=== PATIENT | male | born 1965 | race American Indian/Alaskan Native ===

== ENCOUNTER 2018-11-09 14:48 | Emergency (ER) | payer MEDICAID, MEDICARE ==
[2018-11-09] MEDS ORDERED: ATIVAN ONE (14:56)
[2018-11-09] MEDS ORDERED: ATIVAN IM ONE (15:00)
--- NOTE | 2018-11-09 15:21 | Emergency Department Report ---
ED Seizure HPI - General Chief Complaint: Seizure Stated Complaint: AMS Time Seen by Provider: 11/09/18 14:59 Source: patient Mode of arrival: Stretcher Limitations: No Limitations - History of Present Illness Initial Comments: Mr. Harvey is a 53-year-old male who with history of seizure disorder with neurostimulator in place who presents with seizure and altered mental status. witnessed seizure activity. After seizure, patient was confused. Combative per EMS. While attempted to walk away from EMS, he struck his head on dresser. Patient continues asked for "Zuleika". He asks, "Why are you in my house?" MD Complaint: seizure -: Sudden Witnessed:: Yes Seizure History: known seizure disorder Place: home Possible Precipitating Event: none - Related Data Allergies Allergy/AdvReac Type Severity Reaction Status Date / Time aspirin Allergy Unknown Verified 11/09/18 15:09 ED Review of Systems ROS: Stated complaint: AMS Other details as noted in HPI Comment: Unobtainable due to pts medical conditions (altered mental status) ED Past Medical Hx - Past Medical History Previous Medical History?: Yes Hx Seizures: Yes - Surgical History Past Surgical History?: No - Family History Family history: other (UTO) - Social History Smoking Status: Never Smoker Substance Use Type: None ED Physical Exam - General Limitations: No Limitations General appearance: alert, in no apparent distress, other (combative, talkative, restless) - Head Head exam: Present: atraumatic, normocephalic - Eye Eye exam: Present: normal appearance - ENT ENT exam: Present: mucous membranes moist - Neck Neck exam: Present: normal inspection, full ROM - Respiratory Respiratory exam: Present: normal lung sounds bilaterally. Absent: respiratory distress, wheezes, rales, rhonchi - Cardiovascular Cardiovascular Exam: Present: regular rate, normal rhythm, normal heart sounds. Absent: systolic murmur, diastolic murmur, rubs, gallop - GI/Abdominal GI/Abdominal exam: Present: soft, normal bowel sounds. Absent: distended, tenderness, guarding, rebound - Rectal Rectal exam: Present: deferred - Extremities Exam Extremities exam: Present: normal inspection - Back Exam Back exam: Present: normal inspection - Neurological Exam Neurological exam: Present: alert, altered - Psychiatric Psychiatric exam: Present: agitated - Skin Skin exam: Present: warm, dry, intact, normal color. Absent: rash ED Course Vital Signs 11/09/18 11/09/18 15:10 16:37 Temperature 98 F Pulse Rate 104 H 83 Respiratory 16 16 Rate Blood Pressure 152/78 152/96 [Left] O2 Sat by Pulse 100 96 Oximetry - Reevaluation(s) Reevaluation #1: 11/09/18 18:35 Upon arrival patient requires several ED personnel or strains. He was obviously confused requiring soft tissue restraint and IM Ativan. Reevaluation #2: 11/09/18 18:36 Upon reassessment, patient was alert and oriented 3. He is insightful and cooperative. She was able to recall that he normally has approximately 2-4 seizures per month. However he was unable to recall the name of his medication s. I and the nurse both have attempted to call his for further information. ED Medical Decision Making - Lab Data Result diagrams: 11/09/18 15:13 11/09/18 15:13 - EKG Data 11/09/18 15:27 EKG obtained 1524 Sinus tachycardia rate 100 bpm normal axis normal intervals positive LVH nonspecific T wave pattern no significant ST elevation - Radiology Data Radiology results: report reviewed No acute process - Medical Decision Making Mr. Harvey 52-year-old male with history of seizure disorder with neurostimulator in place. After seizure witnessed by , Mr. Harvey was combative and confused. After observation in the ED, he is now alert and oriented 3 cooperative. CBC chemistry within normal limits. He received Keppra load in the ED. Once arrives he will be discharged home. Critical Care Time: Yes Critical care time in (mins) excluding proc time.: 40 Critical care attestation.: If time is entered above; I have spent that time in minutes in the direct care of this critically ill patient, excluding procedure time. 40 minutes of critical care time excluding procedures were used in the care of the patient. Patient required multiple assessments and interventions. I reviewed the electronic medical record. I spoke with consultants involved in the care of the patient. ED Disposition Clinical Impression: Seizure, Altered mental status Disposition: DC-01 TO HOME OR SELFCARE Is pt being admited?: No Does the pt Need Aspirin: No Condition: Stable Instructions: Recurrent Seizures Adult (ED), Epilepsy (ED) Additional Instructions: Please contact your personal neurologist as soon as possible
[2018-11-09 15:29] LABS: Basophils % (Auto) 0.4 % (0.0-1.8); Hematocrit 35.9 % (35.5-45.6); Hemoglobin 11.7 gm/dl (11.8-15.2); Lymphocytes # (Auto) 2.5 K/mm3 (1.2-5.4); Lymphocytes % (Auto) 33.1 % (13.4-35.0); Mean Corpuscular HGB Conc 33 % (32-34); Mean Corpuscular Volume 84 fl (84-94); Monocytes # (Auto) 0.4 K/mm3 (0.0-0.8); Monocytes % (Auto) 5.9 % (0.0-7.3); Platelet Count 305 K/mm3 (140-440); Red Blood Count 4.26 M/mm3 (3.65-5.03); Red Cell Distribution Width 14.7 % (13.2-15.2)
[2018-11-09 15:50] LABS: Alanine Aminotransferase 18 units/L (7-56); Albumin 4.6 g/dL (3.9-5); BUN/Creatinine Ratio 10; Blood Urea Nitrogen 7 mg/dL (9-20); Calcium 9.1 mg/dL (8.4-10.2); Hemolysis Index 1
[2018-11-09 16:38] VITALS: BP 152/96
--- NOTE | 2018-11-09 17:43 | Cat Scan Report ---
FINAL REPORT EXAM: CT HEAD/BRAIN WO CON HISTORY: Seizure TECHNIQUE: Standard unenhanced CT of the head at 5.0 millimeter axial increments. PRIORS: None. FINDINGS: There is a metallic stimulator device overlying the left parietal region with the 2 stimulator leads terminating in the medial temporal lobes bilaterally. There is dilatation of the lateral and 3rd ventricles bilaterally. The 4th ventricle appears normal. Findings can be seen with hydrocephalus. There is no evidence for parenchymal volume loss. There is no evidence for mass lesion, mass effect, midline shift, acute intracranial hemorrhage, or a cute ischemia/ infarction. No evidence for acute skull fracture is seen. No abnormality in the overlying scalp soft tissues is seen. Visualized paranasal sinuses are clear. IMPRESSION: Dilatation of the lateral and 3rd ventricles bilaterally. Findings can be seen with hydrocephalus.
[2018-11-09] MEDS ORDERED: KEPPRA 1,000 MG/NS 0.75% 100ML 1,000 MG/100 ML BAG IV ONE (18:28)
== END 2018-11-09 20:31 | disposition home or self-care (01) ==
LOC: ED 14:48
DX: G40.909 Epilepsy, unspecified, not intractable, without status epilepticus (principal); R41.82 Altered mental status, unspecified; Z88.6 Allergy status to analgesic agent
CPT/HCPCS: 36415; 70450; 80053; 85025; 93005; 93010; 96372; 96374; 99285; G0480; J1953; J2060; 80320; 96365

== ENCOUNTER 2019-06-21 08:48 | Inpatient (IN) | payer MEDICARE ==
--- NOTE | 2019-06-21 10:00 | Emergency Department Report ---
<SVEN NAGEL - Last Filed: 06/21/19 11:18> ED Neuro Deficit HPI - General Chief Complaint: Seizure Stated Complaint: SEIZURES Time Seen by Provider: 06/21/19 09:27 - Related Data Home Medications: Home Medications Medication Instructions Recorded Confirmed Last Taken Atorvastatin [Lipitor Tab] 40 mg PO QHS 06/21/19 06/21/19 06/20/19 Insulin Glargine [Lantus VIAL] 18 units SUB-Q QPM 06/21/19 06/21/19 Unknown Lacosamide [Vimpat] 200 mg PO BID 06/21/19 06/21/19 06/20/19 Lisinopril [Zestril TAB] 10 mg PO QDAY 06/21/19 06/21/19 06/20/19 OLANZapine [Zyprexa] 15 mg PO HS 06/21/19 06/21/19 06/20/19 OXcarbazepine [Trileptal] 1,200 mg PO Q12H 06/21/19 06/21/19 06/20/19 Topiramate [Topamax] 200 mg PO BID 06/21/19 06/21/19 06/20/19 lamoTRIgine [LaMICtal] 200 mg PO BID 06/21/19 06/21/19 06/20/19 metFORMIN [Glucophage] 500 mg PO BIDWM 06/21/19 06/21/19 06/20/19 Allergies/Adverse Reactions: Allergies Allergy/AdvReac Type Severity Reaction Status Date / Time aspirin Allergy Unknown Verified 11/09/18 15:09 ED Past Medical Hx - Medications Home Medications: Home Medications Medication Instructions Recorded Confirmed Last Taken Type Atorvastatin [Lipitor Tab] 40 mg PO QHS 06/21/19 06/21/19 06/20/19 History Insulin Glargine [Lantus VIAL] 18 units SUB-Q QPM 06/21/19 06/21/19 Unknown History Lacosamide [Vimpat] 200 mg PO BID 06/21/19 06/21/19 06/20/19 History Lisinopril [Zestril TAB] 10 mg PO QDAY 06/21/19 06/21/19 06/20/19 History OLANZapine [Zyprexa] 15 mg PO HS 06/21/19 06/21/19 06/20/19 History OXcarbazepine [Trileptal] 1,200 mg PO Q12H 06/21/19 06/21/19 06/20/19 History Topiramate [Topamax] 200 mg PO BID 06/21/19 06/21/19 06/20/19 History lamoTRIgine [LaMICtal] 200 mg PO BID 06/21/19 06/21/19 06/20/19 History metFORMIN [Glucophage] 500 mg PO BIDWM 06/21/19 06/21/19 06/20/19 History ED Course - Reevaluation(s) Reevaluation #1: 06/21/19 11:19 Additional discussions had with consulting stroke neurology. he does not recommend TPA at this time. Unlikely to be ischemic event. There is concern for a medication interaction. He recommends noncontrast CT scan of the cervical spine, as well as aforementioned angiograms. - Lab Data Result diagrams: 06/21/19 10:02 06/21/19 10:02 Vital Signs 06/21/19 06/21/19 06/21/19 09:00 09:08 09:16 Temperature 98.3 F Pulse Rate 86 86 Respiratory 18 12 Rate Blood Pressure 160/92 160/92 O2 Sat by Pulse 98 98 99 Oximetry ED Disposition Clinical Impression: Gait abnormality, Ataxia, Weakness Disposition: - OP ADMIT IP TO THIS HOSP Condition: Stable <YARED JONES - Last Filed: 06/21/19 14:15> ED Neuro Deficit HPI - General Source: patient Mode of arrival: Stretcher Limitations: No Limitations - History of Present Illness Initial Comments: 53-year-old -[place] female with past medical history of seizure disorder, diabetes, hypertension presents to the emergency department complaining of a 2 day history of episodic unsteady gait and "high stepping". He reports on yesterday when he got out of the bed in the morning to be his he had an unusually high stepping gait to the bathroom was last about 15-20 minutes and symptoms begin to resolve after urination. He states he went about his day normally with no other other interruptions. Last night before going to bed states that his gait was normal but upon awaking today again to go to the bathroom reports having a high stepping gait. Once again just continue to linger associated with general mild weakness. He reports no loss of bowel or bladder, no saddle paresthesia, no headaches, no no blurry vision. States she's been taking this and testes medications as directed and report no trauma or illicit drug use. Reports no fever, chills, sweats but did have some nausea. Location: ataxia History of same: Yes Place: home Severity: mild Improves With: none Worsens With: none On Anticoagulants: No Context: other (onset overnight while sleeping.) Associated Symptoms: denies: confusion, chest pain, cough, diaphoresis, malise, nausea/vomiting, vertigo, syncope, weakness ED Review of Systems ROS: Stated complaint: SEIZURES Other details as noted in HPI Comment: All other systems reviewed and negative ED Past Medical Hx - Past Medical History Hx Hypertension: Yes Hx Diabetes: Yes Hx Seizures: Yes Additional medical history: high cholesterol, - Surgical History Past Surgical History?: Yes 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 - Social History Smoking Status: Former Smoker Substance Use Type: None ED Neuro Physical Exam - General Limitations: No Limitations General appearance: alert, in no apparent distress, appears intoxicated Suspected Stroke: No - Head Head exam: Present: atraumatic, normocephalic - Eye Eye exam: Present: normal appearance, PERRL, EOMI Pupils: Present: normal accommodation - ENT ENT exam: Present: normal exam, normal orophraynx, mucous membranes moist - Neck Neck exam: Present: normal inspection, full ROM - Respiratory Respiratory exam: Present: normal lung sounds bilaterally. Absent: respiratory distress, wheezes, rales, chest wall tenderness, accessory muscle use, decreased breath sounds - Cardiovascular Cardiovascular Exam: Present: regular rate, normal rhythm. Absent: systolic murmur, diastolic murmur, rubs, gallop - GI/Abdominal GI/Abdominal exam: Present: soft, normal bowel sounds. Absent: distended, tenderness, guarding, hyperactive bowel sounds, hypoactive bowel sounds, organomegaly, mass - Rectal Rectal exam: Present: deferred - Extremities Exam Extremities exam: Present: normal inspection - Back Exam Back exam: Present: normal inspection - Neurological Exam Neurological exam: Present: alert, oriented X3 - Psychiatric Psychiatric exam: Present: normal affect, normal mood - Skin Skin exam: Present: warm, dry, intact, normal color. Absent: rash ED Course Vital Signs 10/09/19 10/09/19 10/09/19 09:00 09:08 09:16 Temperature 98.3 F Pulse Rate 86 86 Respiratory 18 12 Rate Blood Pressure 160/92 160/92 O2 Sat by Pulse 98 98 99 Oximetry - Consultations Consultation #1: 06/21/19 10:04 Case discussed with attending Dr. Nagel also had face to face with the patien t. We ambulated Mr. Noonan. His gait was found to be unsteady. Plan is to work up as a stroke and consult Tele-Neuro for stat consult. Patient is not criteria for a code stroke. Consultation #2: 06/21/19 14:14 Case was discussed with the hospitalist plan is [place] [facility] [place] to be placed - Lab Data Result diagrams: 06/21/19 10:02 06/21/19 10:02 Lab Results 06/21/19 06/21/19 06/21/19 Range/Units 10:02 10:02 10:02 WBC 7.9 (4.5-11.0) K/mm3 RBC 4.71 (3.65-5.03) M/mm3 Hgb 13.1 (11.8-15.2) gm/dl Hct 40.0 (35.5-45.6) % MCV 85 (84-94) fl MCH 28 (28-32) pg MCHC 33 (32-34) % RDW 15.2 (13.2-15.2) % Plt Count 234 (140-440) K/mm3 Lymph % (Auto) 28.6 (13.4-35.0) % Price % (Auto) 5.9 (0.0-7.3) % Eos % (Auto) 0.5 (0.0-4.3) % Baso % (Auto) 1.3 (0.0-1.8) % Lymph # 2.3 (1.2-5.4) K/mm3 Price # 0.5 (0.0-0.8) K/mm3 Eos # 0.0 (0.0-0.4) K/mm3 Baso # 0.1 (0.0-0.1) K/mm3 Seg Neutrophils % 63.7 (40.0-70.0) % Seg Neutrophils # 5.0 (1.8-7.7) K/mm3 PT 12.2 (12.2-14.9) Sec. INR 0.93 (0.87-1.13) Sodium 148 H (137-145) mmol/L Potassium 4.1 (3.6-5.0) mmol/L Chloride 104.9 (98-107) mmol/L Carbon Dioxide 26 (22-30) mmol/L Anion Gap 21 mmol/L BUN 7 L (9-20) mg/dL Creatinine 0.8 (0.8-1.5) mg/dL Estimated GFR > 60 ml/min BUN/Creatinine Ratio 9 % Glucose 147 H (75-100) mg/dL Calcium 9.4 (8.4-10.2) mg/dL Magnesium (1.7-2.3) mg/dL Total Bilirubin 0.40 (0.1-1.2) mg/dL AST 10 (5-40) units/L ALT 7 (7-56) units/L Alkaline Phosphatase 106 (35-129) units/L Ammonia (25-60) umol/L Total Creatine Kinase (55-170) units/L Troponin T < 0.010 (0.00-0.029) ng/mL Total Protein 7.6 (6.3-8.2) g/dL Albumin 4.9 (3.9-5) g/dL Albumin/Globulin Ratio 1.8 % TSH (0.270-4.200) mlU/mL Salicylates (2.8-20.0) mg/dL Acetaminophen (10.0-30.0) ug/mL Plasma/Serum Alcohol (0-0.07) % 06/21/19 06/21/19 06/21/19 Range/Units 11:44 Unknown Unknown WBC (4.5-11.0) K/mm3 RBC (3.65-5.03) M/mm3 Hgb (11.8-15.2) gm/dl Hct (35.5-45.6) % MCV (84-94) fl MCH (28-32) pg MCHC (32-34) % RDW (13.2-15.2) % Plt Count (140-440) K/mm3 Lymph % (Auto) (13.4-35.0) % Price % (Auto) (0.0-7.3) % Eos % (Auto) (0.0-4.3) % Baso % (Auto) (0.0-1.8) % Lymph # (1.2-5.4) K/mm3 Price # (0.0-0.8) K/mm3 Eos # (0.0-0.4) K/mm3 Baso # (0.0-0.1) K/mm3 Seg Neutrophils % (40.0-70.0) % Seg Neutrophils # (1.8-7.7) K/mm3 PT (12.2-14.9) Sec. INR (0.87-1.13) Sodium (137-145) mmol/L Potassium (3.6-5.0) mmol/L Chloride (98-107) mmol/L Carbon Dioxide (22-30) mmol/L Anion Gap mmol/L BUN (9-20) mg/dL Creatinine (0.8-1.5) mg/dL Estimated GFR ml/min BUN/Creatinine Ratio % Glucose (75-100) mg/dL Calcium (8.4-10.2) mg/dL Magnesium 1.40 L (1.7-2.3) mg/dL Total Bilirubin (0.1-1.2) mg/dL AST (5-40) units/L ALT (7-56) units/L Alkaline Phosphatase (35-129) units/L Ammonia 48.0 (25-60) umol/L Total Creatine Kinase 206 H (55-170) units/L Troponin T (0.00-0.029) ng/mL Total Protein (6.3-8.2) g/dL Albumin (3.9-5) g/dL Albumin/Globulin Ratio % TSH 0.753 (0.270-4.200) mlU/mL Salicylates (2.8-20.0) mg/dL Acetaminophen (10.0-30.0) ug/mL Plasma/Serum Alcohol (0-0.07) % 06/21/19 06/21/19 06/21/19 Range/Units Unknown Unknown Unknown WBC (4.5-11.0) K/mm3 RBC (3.65-5.03) M/mm3 Hgb (11.8-15.2) gm/dl Hct (35.5-45.6) % MCV (84-94) fl MCH (28-32) pg MCHC (32-34) % RDW (13.2-15.2) % Plt Count (140-440) K/mm3 Lymph % (Auto) (13.4-35.0) % Price % (Auto) (0.0-7.3) % Eos % (Auto) (0.0-4.3) % Baso % (Auto) (0.0-1.8) % Lymph # (1.2-5.4) K/mm3 Price # (0.0-0.8) K/mm3 Eos # (0.0-0.4) K/mm3 Baso # (0.0-0.1) K/mm3 Seg Neutrophils % (40.0-70.0) % Seg Neutrophils # (1.8-7.7) K/mm3 PT (12.2-14.9) Sec. INR (0.87-1.13) Sodium (137-145) mmol/L Potassium (3.6-5.0) mmol/L Chloride (98-107) mmol/L Carbon Dioxide (22-30) mmol/L Anion Gap mmol/L BUN (9-20) mg/dL Creatinine (0.8-1.5) mg/dL Estimated GFR ml/min BUN/Creatinine Ratio % Glucose (75-100) mg/dL Calcium (8.4-10.2) mg/dL Magnesium (1.7-2.3) mg/dL Total Bilirubin (0.1-1.2) mg/dL AST (5-40) units/L ALT (7-56) units/L Alkaline Phosphatase (35-129) units/L Ammonia (25-60) umol/L Total Creatine Kinase (55-170) units/L Troponin T (0.00-0.029) ng/mL Total Protein (6.3-8.2) g/dL Albumin (3.9-5) g/dL Albumin/Globulin Ratio % TSH (0.270-4.200) mlU/mL Salicylates < 0.3 L (2.8-20.0) mg/dL Acetaminophen < 5.0 L (10.0-30.0) ug/mL Plasma/Serum Alcohol < 0.01 (0-0.07) % - EKG Data EKG shows normal: sinus rhythm Rate: normal When compared to previous EKG there are: no significant change Interpretation: no acute changes, nonspecific ST-T wave beronica - Medical Decision Making 53 history of seizures and antacids seizure device implantation to the cranium. Presents with department for unsteady gait. CT scan and CT angiograms were normal laboratory data undulate infectious criteria patient was evaluated the telemetry neurologist who recommended various testing modalities and ultimate admission. His symptoms continue to to lingula in the ED gave. Due to the continued ataxia we will admit for further evaluation and treatment options Critical care attestation.: If time is entered above; I have spent that time in minutes in the direct care of this critically ill patient, excluding procedure time. ED Disposition Is pt being admited?: Yes Does the pt Need Aspirin: No
[2019-06-21 10:31] LABS: Basophils # (Auto) 0.1 K/mm3 (0.0-0.1); Basophils % (Auto) 1.3 % (0.0-1.8); Eosinophils % (Auto) 0.5 % (0.0-4.3); Hemoglobin 13.1 gm/dl (11.8-15.2); Lymphocytes # (Auto) 2.3 K/mm3 (1.2-5.4); Lymphocytes % (Auto) 28.6 % (13.4-35.0); Mean Corpuscular HGB Conc 33 % (32-34); Mean Corpuscular Volume 85 fl (84-94); Monocytes # (Auto) 0.5 K/mm3 (0.0-0.8); Monocytes % (Auto) 5.9 % (0.0-7.3); Platelet Count 234 K/mm3 (140-440); Red Blood Count 4.71 M/mm3 (3.65-5.03); Red Cell Distribution Width 15.2 % (13.2-15.2)
[2019-06-21 10:45] LABS: INR 0.93 (0.87-1.13)
[2019-06-21] MEDS ORDERED: KEPPRA 1,000 MG/NS 0.75% 100ML 1,000 MG/100 ML BAG IV ONE ×2 (10:47→11:35)
[2019-06-21] MEDS ORDERED: NACL 0.9% 500 ML 500 ML IV ONE (10:47)
--- NOTE | 2019-06-21 10:50 | Event Note ---
Date of service: 06/21/19 Face to Face: 53-year-old gentleman with history of deep brain stimulator, seizure disorder, presents to ER with possible seizure, although typical seizures are grand mal in H her, waking up with unsteady gait. Not a TPA candidate as patient woke up with symptoms. Patient seen and evaluated in consultation with stroke neurology, Dr. Manolo Florence, who agrees that patient not a TPA candidate, recommends CT angiogram brain and neck to evaluate for possible large vessel occlusion, and if no large vessel occlusion noted, recommends inpatient admission for repeat CT scan, stroke workup, physical therapy evaluation. If deep brain stimulator is found to be M are compatible, inpatient team may consider inpatient MRI. We deferred to inpatient team to further evaluate this. Vital Signs 06/21/19 06/21/19 06/21/19 09:00 09:08 09:16 Temperature 98.3 F Pulse Rate 86 86 Respiratory 18 12 Rate Blood Pressure 160/92 160/92 O2 Sat by Pulse 98 98 99 Oximetry Lab Results 06/21/19 06/21/19 Range/Units 10:02 10:02 WBC 7.9 (4.5-11.0) K/mm3 RBC 4.71 (3.65-5.03) M/mm3 Hgb 13.1 (11.8-15.2) gm/dl Hct 40.0 (35.5-45.6) % MCV 85 (84-94) fl MCH 28 (28-32) pg MCHC 33 (32-34) % RDW 15.2 (13.2-15.2) % Plt Count 234 (140-440) K/mm3 Lymph % (Auto) 28.6 (13.4-35.0) % [place] % (Auto) 5.9 (0.0-7.3) % Eos % (Auto) 0.5 (0.0-4.3) % Baso % (Auto) 1.3 (0.0-1.8) % Lymph # 2.3 (1.2-5.4) K/mm3 [place] # 0.5 (0.0-0.8) K/mm3 Eos # 0.0 (0.0-0.4) K/mm3 Baso # 0.1 (0.0-0.1) K/mm3 Seg Neutrophils % 63.7 (40.0-70.0) % Seg Neutrophils # 5.0 (1.8-7.7) K/mm3 PT 12.2 (12.2-14.9) Sec. INR 0.93 (0.87-1.13)
[2019-06-21 10:55] LABS: Alanine Aminotransferase 7 units/L (7-56); Albumin 4.9 g/dL (3.9-5); BUN/Creatinine Ratio 9; Blood Urea Nitrogen 7 mg/dL (9-20); Calcium 9.4 mg/dL (8.4-10.2); Hemolysis Index 11
--- NOTE | 2019-06-21 11:04 | XRay Report ---
CHEST 1 VIEW INDICATION: Syncope. COMPARISON: None FINDINGS: Support devices: None. Heart: Within normal limits. Lungs/Pleura: No acute air space or interstitial disease. Additional findings: None. IMPRESSION: No acute findings. Signer Name: Garret Staples Jr, MD Signed: 06/21/2019 11:00 AM Workstation Name: [id number]
--- NOTE | 2019-06-21 11:23 | Emergency Department Report ---
ED Neuro Deficit HPI - General Chief Complaint: Seizure Stated Complaint: SEIZURES Time Seen by Provider: 06/21/19 09:27 Source: patient Mode of arrival: Stretcher Limitations: No Limitations - History of Present Illness Initial Comments: [facility] Tele[facility]urology Consult Services STAT Neurology Consult Chief Complaint: Gait Abnormality HPI: Asked to see this patient in emergent telemedicine consultation utilizing interactive audio and video technologies. Consultation was performed with assistance of ancillary / medical staff at bedside. Verbal consent to perform the examination with telemedicine was obtained. Patient agreed to proceed with the consultation. 53-year-old right-handed -[place] male who comes to the emergency room for evaluation of gait changes. Patient currently is not on any aspirin. He has a history of generalized tonic- clonic seizure disorder, and is status post bilateral DBS placement. He follows up with a neurologist at [facility] with [place]. He states he has had seizures now since about 2011. Looking at his medication bottles, patient is on zonisamide 200 mg twice a day, Trileptal 600 mg twice a day, Topamax 200 mg twice a day, and lamotrigine 100 mg twice a day. He is also on amitriptyline 100 mg at bedtime. He also takes Zyprexa, atorvastatin, metformin, and lisinopril. Patient states that yesterday morning, he woke up and had to change his gait. He described a high steppage gait, and sometimes he would have to walk on his heels. He was off balance and unsteady while walking to the bathroom. This lasted for about 20 minutes. His gait abnormality had resolved by the middle of yesterday. Then again he woke up this morning with weakness in his legs and trouble with his balance and stepping high again. He denies any significant back pain. He denies any nerve pain. He also reports a recent history of hand shaking. PMH: Generalized tonic-clonic seizure disorder status post DBS placement, hypertension, hyperlipidemia, and diabetes mellitus SOC: Negative x3. Patient smoked before in the past. He is and lives with family. FMH: Negative for seizures ROS: 13 point review of systems were reviewed with the patient, and are all negative with the exception of the aforementioned in the history of present illness. VS: Temperature is 98.3 F, pulse 86, respiration 12, blood pressure 160/92, oxygen saturation 9 9% Exam: Patient is in no apparent distress. Patient appears as stated age. No obvious acute respiratory or cardiac distress. Patient is well groomed and well-nourished. 1a- LOC: Keenly responsive - 0 1b- LOC questions: Answers 1 question correctly - 1 1c- LOC commands- Performs both tasks correctly- 0 2- Gaze: Normal; no gaze paresis or gaze deviation - 0 3- Visual Holman: normal, no Visual field deficit - 0 4- Facial movements: no facial palsy - 0 5- Upper limb motor - no drift - 0 6- Lower limb motor bilateral leg drifts - 2 7- Limb Coordination: absent ataxia - 0 8- Sensory: no sensory loss - 0 9- Language - No aphasia - 0 10- Speech - No dysarthria -0 11- Neglect / Extinction - none found - 0 NIHSS score: 3 Diagnostic Data: CT of the head showed no acute intracranial process WBC 7.9, hemoglobin 13.1, platelets 234, sodium 148, potassium 4, BUN 7, creatinine 0.8, blood glucose 147 Medical Data Reviewed: 1.Data?reviewed include clinical labs, radiology,?and medical tests; 2.Tests?results discussed w/performing or interpreting physician; 3.Obtaining/reviewing old medical records; 4.Obtaining?case history from another source; 5.Independent?review of image, tracing, or specimen. Medical Decision Making: - Extensive number of diagnosis or management options are considered below. - Extensive amount of complex data reviewed. - High risk of complication and/or morbidity or mortality are associated with differential diagnostic considerations below. - There may be?uncertain?outcome and increased probability of prolonged functional impairment or high probability of severe prolonged functional impairment associated with some of these differential diagnosis. Differential Diagnosis for Stroke: 1.?Cardioembolic?stroke 2. Small vessel disease/lacune 3. Thromboembolic, mhyucm-fi-xpaund mechanism 4.?Hypercoagulable?state-related infarct 5. Transient ischemic attack 6. Thrombotic mechanism, large artery disease Assessment: 1. Gait abnormality and leg weakness 2. Generalized tonic-clonic seizure disorder status post DBS 3. Hypertension 4. Hyperlipidemia 5. Diabetes mellitus Recommendations: Check CTA of the head and neck to better evaluate his intracranial and extracranial blood vessels with particular attention to the posterior circulation. Can also check CT of the cervical spine to make sure there is no acute cervical spine process that could be contributing to his symptoms. Symptoms seem to be lasting too long to suggest a breakthrough seizure. Can continue his regular seizure medicines for now. Patient can be admitted to the hospital for further work-up of his symptoms. We will need to verify with the if his DBS are MRI compatible. If can obtain MRI imaging, check MRI brain with and without contrast and MRI cervical spine with and without contrast to further evaluate his symptoms. If cannot obtain MRI imaging, then can at least repeat a head CT tomorrow morning to see if he develops any new evolving cerebral ischemia. Can check labs to include an ammonia level, TSH, B12 level, A1c, lipid panel, and folate level. Consult local neurology team to assist with evaluation and management. Consult PT, OT, and ST. Continue supportive care. Thank you for allowing [facility] to participate in the care of your patient. Please call me, Dr. Florence, with any questions at [phone]. Case discussed with the ER staff and Dr. Reyna. Location: ataxia History of same: Yes Place: home Severity: mild Improves With: none Worsens With: none On Anticoagulants: No - Related Data Allergies/Adverse Reactions: Allergies Allergy/AdvReac Type Severity Reaction Status Date / Time aspirin Allergy Unknown Verified 11/09/18 15:09 ED Review of Systems ROS: Stated complaint: SEIZURES Other details as noted in HPI ED Past Medical Hx - Past Medical History Hx Hypertension: Yes Hx Diabetes: Yes Hx Seizures: Yes Additional medical history: high cholesterol, - Surgical History Past Surgical History?: Yes 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 - Social History Smoking Status: Former Smoker Substance Use Type: None ED Neuro Physical Exam - General Limitations: No Limitations General appearance: alert, in no apparent distress, appears intoxicated Suspected Stroke: No ED Course Vital Signs 06/21/19 06/21/19 06/21/19 09:00 09:08 09:16 Temperature 98.3 F Pulse Rate 86 86 Respiratory 18 12 Rate Blood Pressure 160/92 160/92 O2 Sat by Pulse 98 98 99 Oximetry - Lab Data Result diagrams: 06/21/19 10:02 06/21/19 10:02 Lab Results 06/21/19 06/21/19 06/21/19 Range/Units 10:02 10:02 10:02 WBC 7.9 (4.5-11.0) K/mm3 RBC 4.71 (3.65-5.03) M/mm3 Hgb 13.1 (11.8-15.2) gm/dl Hct 40.0 (35.5-45.6) % MCV 85 (84-94) fl MCH 28 (28-32) pg MCHC 33 (32-34) % RDW 15.2 (13.2-15.2) % Plt Count 234 (140-440) K/mm3 Lymph % (Auto) 28.6 (13.4-35.0) % [place] % (Auto) 5.9 (0.0-7.3) % Eos % (Auto) 0.5 (0.0-4.3) % Baso % (Auto) 1.3 (0.0-1.8) % Lymph # 2.3 (1.2-5.4) K/mm3 [place] # 0.5 (0.0-0.8) K/mm3 Eos # 0.0 (0.0-0.4) K/mm3 Baso # 0.1 (0.0-0.1) K/mm3 Seg Neutrophils % 63.7 (40.0-70.0) % Seg Neutrophils # 5.0 (1.8-7.7) K/mm3 PT 12.2 (12.2-14.9) Sec. INR 0.93 (0.87-1.13) Sodium 148 H (137-145) mmol/L Potassium 4.1 (3.6-5.0) mmol/L Chloride 104.9 (98-107) mmol/L Carbon Dioxide 26 (22-30) mmol/L Anion Gap 21 mmol/L BUN 7 L (9-20) mg/dL Creatinine 0.8 (0.8-1.5) mg/dL Estimated GFR > 60 ml/min BUN/Creatinine Ratio 9 % Glucose 147 H (75-100) mg/dL Calcium 9.4 (8.4-10.2) mg/dL Total Bilirubin 0.40 (0.1-1.2) mg/dL AST 10 (5-40) units/L ALT 7 (7-56) units/L Alkaline Phosphatase 106 (35-129) units/L Troponin T < 0.010 (0.00-0.029) ng/mL Total Protein 7.6 (6.3-8.2) g/dL Albumin 4.9 (3.9-5) g/dL Albumin/Globulin Ratio 1.8 % Critical care attestation.: If time is entered above; I have spent that time in minutes in the direct care of this critically ill patient, excluding procedure time. ED Disposition Clinical Impression: Gait abnormality Disposition: OP ADMIT IP TO THIS HOSP Is pt being admited?: Yes Does the pt Need Aspirin: No Condition: Stable Referrals: PRIMARY CARE, [Primary Care Provider] - 3-5 Days
[2019-06-21] MEDS ORDERED: NACL 0.9% 1000 ML 1,000 ML ONE (11:36)
--- NOTE | 2019-06-21 13:08 | Cat Scan Report ---
CTA neck without and with intravenous contrast material, with multiplanar reconstruction and with thr ee-dimensional reconstructions produced utilizing an independent workstation. CLINICAL HISTORY: sz va tia with unsteady gait TECHNIQUE: Following acquisition of a timing bolus 0.63 mm thick contiguous axial scans were obtained from aorti c arch to the skull base during rapid bolus intravenous contrast infusion. In addition to evaluation of axial source images multiplanar reconstructions were produced and reviewed for this report. Three- dimensional reconstructions were produced utilizing an independent workstation. These were also revie wed for this report. FINDINGS: No abnormalities are seen at the origins of the great vessels. Visualized portions of the thoracic ao rta have an unremarkable appearance. Brachiocephalic artery and left subclavian artery have an unrema rkable appearance. Right common carotid artery: Right common carotid artery, right carotid bifurcation and cervical port ions of the right internal carotid artery all have an unremarkable appearance. There is no indication of atherosclerotic change. Left carotid artery: Left common carotid artery, left carotid bifurcation and cervical portions of th e left common carotid artery all have an unremarkable appearance with no indication of atheroscleroti c disease or stenosis. Normal and symmetrical vertebral arteries are present. There is no indication of stenosis along the c ourse of the vertebral arteries. Both vertebral arteries contribute to the basilar artery origin. The basilar artery has an unremarkable appearance. The degree of stenosis, if any, is determined utilizing NASCET like criteria. In this case there is no indication of hemodynamically significant stenosis at the carotid bifurcations or elsewhere.. Evaluation of the nonvascular soft tissue structures reveal no abnormality. There is no indication of cervical lymphadenopathy. No abnormalities are seen along the course of the airway. Visualized porti ons of the parotid glands and the submandibular salivary glands have a normal appearance. Thyroid gla nd has a normal appearance. Evaluation of the lung apices reveals no evidence of lung nodule or infil trate. Evaluation of the cervical spine is remarkable for left-sided facet arthropathy at the C2-3 level. Th is is associated with moderate left C3 nerve root neural foraminal stenosis. There is no indication o f central canal stenosis or foraminal encroachment elsewhere. IMPRESSION: 1. No indication of hemodynamically significant stenosis at the carotid bifurcations or elsewhere on CTA neck. Contrast dose report: Omnipaque 350: 100 ml, administered intravenously All CT examinations performed at this facility utilize modulated dose reduction, iterative reconstruc tion or weight-based dosing, as appropriate, to obtain a radiation dose which is as low as can reason ably be achieved. Signer Name: Bernardo Doherty MD Signed: 06/21/2019 1:04 PM Workstation Name: [id number]
--- NOTE | 2019-06-21 13:17 | Cat Scan Report ---
CT CERVICAL SPINE: 06/21/2019 INDICATION / CLINICAL INFORMATION: unsteady gait. COMPARISON: None available. FINDINGS: CT images of the cervical spine were obtained. Images are evaluated in the axial, coronal, and sagit christina planes. There is no evidence of acute traumatic injury. Vertebral body alignment is well preserved. Some mild facet degenerative changes bilaterally. There is no evidence of osseous canal or foraminal narrowing. CRANIOCERVICAL JUNCTION: Unremarkable. PARASPINAL STRUCTURES: Unremarkable. IMPRESSION: No acute abnormality. All CT scans at this location are performed using dose reduction to ALARA by means of automated expos ure control. Signer Name: Chris Mera MD Signed: 06/21/2019 1:13 PM Workstation Name: [id number]
--- NOTE | 2019-06-21 13:22 | Cat Scan Report ---
HEAD CT ANGIOGRAM 06/21/2019 HISTORY: TIA. Unsteady gait. FINDINGS: Contrast-enhanced CT angiographic images of the intracranial circulation were obtained. In addition to the axial images, sagittal and coronal reformatted images were obtained. In addition, 3 p andra MIP reconstructions were produced. Patient has bilateral brain parenchymal electrodes entering via posterior parietal approach, extendin g along the medial aspect of the temporal lobes bilaterally. These electrodes create some beam harden ing artifact, which results in some decreased visualization of vascular structures. There is no evidence of significant vascular abnormality. Normal vascular contours are associated wit h anterior and posterior circulation vessels. There is no evidence of vessel occlusion or malformatio n. IMPRESSION: No evidence of vascular abnormality. All CT scans at this location are performed using dose reduction to ALARA by means of automated expos ure control. Signer Name: Chris Mera MD Signed: 06/21/2019 1:17 PM Workstation Name: [id number]
[2019-06-21] MEDS ORDERED: MAGNESIUM SULFATE 2GM/50ML 2 GM/50 ML BAG IV ONE (13:45)
--- NOTE | 2019-06-21 14:56 | Cat Scan Report ---
CT HEAD WITHOUT CONTRAST INDICATION : ataxia. TECHNIQUE: Axial imaging performed from the skull apex through the skull base without the use of con trast. Sagittal and coronal reformatted images. All CT scans at this location are performed using C T dose reduction for ALARA by means of automated exposure control. COMPARISON: 10/30/2018 FINDINGS: Parenchyma: No acute intracranial hemorrhage or parenchymal abnormality. Ventricles: Ventricular size appears slightly prominent which is unchanged. Stimulator leads termina ting in the medial temporal lobe regions bilaterally are again noted and unchanged. Bones: No acute osseous abnormality. Sinuses: Sinuses and mastoid air cells are clear. Soft tissues: Soft tissues including the orbits appear normal. IMPRESSION: No acute abnormality. No change since 11/09/2018. Signer Name: Garret Staples Jr, MD Signed: 06/21/2019 2:51 PM Workstation Name: [id number]
[2019-06-21] MEDS ORDERED: OXCARBAZEPINE 1200 MG PO SCH (19:45)
[2019-06-21] MEDS ORDERED: SODIUM CHLORIDE FLUSH SYRINGE 10 ML IV PRN (19:55)
[2019-06-21] MEDS: GLUCOPHAGE PO SCH (20:26)
[2019-06-21] MEDS: ASPIRIN PO SCH ×2 (20:27→21:12)
[2019-06-21] MEDS: ZESTRIL PO SCH (20:31)
[2019-06-21] MEDS ORDERED: BENADRYL IV PRN (21:09)
[2019-06-21] MEDS ORDERED: TRILEPTAL PO SCH (22:00)
[2019-06-21] MEDS ORDERED: NON-FORMULARY (Olanzapine [Zyprexa] 15 MG) PO SCH (22:00)
[2019-06-21] MEDS ORDERED: NON-FORMULARY (Lacosamide [Vimpat] 200 MG) PO SCH (22:00)
[2019-06-21] MEDS: TOPAMAX PO SCH (22:43)
[2019-06-21] MEDS: TRILEPTAL PO SCH (22:44)
[2019-06-21] MEDS: LaMICtal PO SCH (22:44)
[2019-06-21] MEDS: HumaLOG SUB-Q SCH (22:47)
[2019-06-21] MEDS: VIMPAT PO SCH (22:57)
[2019-06-21] MEDS ORDERED: TYLENOL PO PRN (23:58)
--- NOTE | 2019-06-22 01:06 | Cat Scan Report ---
CTA NECK WITH CONTRAST HISTORY: Ataxia COMPARISON: None. TECHNIQUE: Routine CTA of the neck was performed. 3-D/MIP reformats were postprocessed. Percentage s tenosis is determined by direct quantitative measurements of diseased internal carotid artery diamete r compared with normal distal internal carotid artery reference segments or by criteria similar to NA SCET where applicable.All CT scans at this location are performed using CT dose reduction for ALARA b y means of automated exposure control CONTRAST: 100 ml of Isovue 370 FINDINGS: Aortic arch: No significant abnormality. Cervical vertebral arteries: No significant abnormality. Common carotid arteries: No significant abnormality. Carotid bifurcations: Normal Cervical internal carotid arteries: No significant abnormality. Additional findings: None. IMPRESSION: 1. No significant abnormality. Signer Name: Alley Rush MD Signed: 06/22/2019 1:01 AM Workstation Name: [id number]
--- NOTE | 2019-06-22 01:11 | Cat Scan Report ---
CTA HEAD WITH CONTRAST HISTORY: Ataxia COMPARISON: None. TECHNIQUE: CTA of the head performed. 3-D/MIP reformats postprocessed. All CT scans at this [facility] are performed using CT dose reduction for ALARA by means of automated exposure control. CONTRAST: 100 ml of Omnipaque 350 FINDINGS: Is seen in the CT scan of the brain, electrodes intact medial temporal lobes bilaterally. CTA Head: Intracranial vertebral arteries: No significant abnormality. Both PICA are normal. Basilar artery: No significant abnormality. Posterior cerebral arteries: Normal bilaterally proximally. Artifacts from the vertex obscuring the d etails T2 and P3 segments. Intracranial internal carotid arteries: No significant abnormality. Anterior cerebral arteries: No significant abnormality. Middle cerebral arteries: No significant abnormality. Dural venous sinuses:Not optimally opacified. No significant abnormality. Additional findings: Lateral ventricles are quite generous, disproportionate to high convexity cortic al sulci suggesting deep central involution. IMPRESSION: Normal CTA of the brain. Signer Name: Alley Rush MD Signed: 06/22/2019 1:07 AM Workstation Name: [id number]
--- NOTE | 2019-06-22 06:21 | Event Note ---
Date: 06/21/19 See H/p in reports Ataxic gait--R/o CVA Seizure disorder
--- NOTE | 2019-06-22 06:46 | History and Physical Report ---
CHIEF COMPLAINT: Abnormal gait since yesterday. HISTORY OF PRESENT ILLNESS: A 53-year-old male with history of tonic-clonic seizure disorder with a brain stimulator placement bilaterally, comes in for change in his gait since yesterday. The patient apparently had a high step yesterday and felt very unsteady while walking to the bathroom. This lasted about 20 minutes. The gait abnormality resolved after 20 minutes and was normal until this morning. This morning, the patient wakes up with weakness in the legs and unsteady gait and high stepping gait. Tendency to fall, because of which the patient came to the Emergency Room. No weakness in both upper extremities. Weakness in both lower extremities with unsteady gait. Persistent. No fever or chills recently. No recent travel. No strokes in the past. Seizure disorder from 2011. PAST MEDICAL HISTORY: Significant for hypertension, seizure disorder, insulin-dependent diabetes. CURRENT MEDICATIONS: Include Lantus 18 units in the nighttime, atorvastatin 40 mg at bedtime, and seizure medications including Topamax, Lamictal, Trileptal. PAST SURGICAL HISTORY: Brain stimulator in the scalp bilaterally. SOCIAL HISTORY: Former smoker. No marijuana or alcohol now. FAMILY HISTORY: Hypertension. REVIEW OF SYSTEMS: Significant for unsteady gait and the high step gait since yesterday which resolved, but again started having the same symptoms since morning. PHYSICAL EXAMINATION: GENERAL: Middle-aged male, cooperative during examination, in no distress. VITAL SIGNS: Temperature is 98.2, pulse is 76, sats are 99%, blood pressure is 157/89. HEENT: Unremarkable. Pupils equal and reactive. NECK: Supple, no lymphadenopathy, no thyromegaly. LUNGS: Clear to auscultation and percussion. Good air entry. CARDIOVASCULAR: S1, S2 heard. No gallop, no murmur, no rub. Apical impulse in left fifth intercostal space and midclavicular line. ABDOMEN: Soft and benign. No hepatosplenomegaly, no guarding, no rigidity. Hernial orifices are normal. EXTREMITIES: Power is normal in both upper extremities 5/5. Lower extremities, power is 4/5 in both left and right lower extremities. Gait is ataxic. Unsteady. Tendency to fall. Reflexes are normal. Sensory system is normal. LABORATORY DATA: Significant for normal CBC. Sodium is 148, BUN and creatinine are 7 and 0.8, glucose is 111. Electrolytes are normal otherwise. Drug screen is negative. CT of the head, no acute abnormality. Head CT and neck CT are normal. No evidence of vascular abnormality. EKG shows sinus rhythm, heart rate of 87 per minute, left ventricular hypertrophy by voltage criteria. Cervical spine CT was normal. No acute changes. Mild facet degenerative changes. ASSESSMENT AND PLAN: 1. Ataxic gait, rule out cerebrovascular accident. The patient to get MRI if possible. The patient has a brain stimulator. We will defer to Radiology whether MRI can be performed. MRA not necessary and carotid duplex scan not necessary because CT angiogram of the neck and head was done. Neurology consult requested. Physical therapy initiated. 2. Hypertension. Continue antihypertensives. 3. Seizure disorder. Continue anti-seizure medications. 4. Type 2 diabetes. Continue Lantus and metformin and coverage. Check hemoglobin A1c. 5. Hyperlipidemia. Continue statins. 6. Deep venous thrombosis prophylaxis. The patient on Lovenox 40 mg subcutaneous daily. [facility]# [id number] RAYMOND/AXEL QUINN
[2019-06-22] MEDS: HumaLOG SUB-Q SCH ×4 (09:07→22:56)
[2019-06-22] MEDS ORDERED: LOVENOX SUB-Q SCH (10:00)
[2019-06-22] MEDS: LaMICtal PO SCH ×2 (14:10→21:50)
[2019-06-22] MEDS: TOPAMAX PO SCH ×2 (14:10→21:50)
[2019-06-22] MEDS: TRILEPTAL PO SCH ×2 (14:10→21:48)
[2019-06-22] MEDS: VIMPAT PO SCH ×2 (14:10→21:50)
[2019-06-22] MEDS: LOVENOX SUB-Q SCH (14:11)
[2019-06-22] MEDS: GLUCOPHAGE PO SCH ×2 (14:12→18:58)
[2019-06-22] MEDS: ZESTRIL PO SCH (14:18)
[2019-06-22 16:23] LABS: Chol/HDL Ratio 2.53 %
--- NOTE | 2019-06-22 17:32 | Consultation ---
History of Present Illness Consult date: 06/22/19 Reason for Consult: Unsteady gait Chief complaint: Unsteady gait History of present illness: Patient is a 53 y/o man w/ a h/o HTN, HLD, DM, h/o seizures, h/o DBS placement. He p/w 3-5 day history of unsteady gait. Patient states that he suddenly had onset of unsteady gait. An event occurred at home, however patient does not recall what the event was. Of note patient, has cognitive deficits at baseline, as he states that he occasionally is unable to remember events and details. He states that he has been compliant with all of his anti-seizure meds, and has not had any recent changes in medications or doses. Past History Past Medical History: other (HTN, HLD, DM, h/o seizures, h/o DBS placement) Social history: lives with family Family history: no significant family history Medications and Allergies Allergies Allergy/AdvReac Type Severity Reaction Status Date / Time aspirin Allergy Unknown Verified 11/09/18 15:09 Home Medications Medication Instructions Recorded Confirmed Last Taken Type Atorvastatin [Lipitor Tab] 40 mg PO QHS 06/21/19 06/21/19 06/20/19 History Insulin Glargine [Lantus VIAL] 18 units SUB-Q QPM 06/21/19 06/21/19 Unknown History Lacosamide [Vimpat] 200 mg PO BID 06/21/19 06/21/19 06/20/19 History Lisinopril [Zestril TAB] 10 mg PO QDAY 06/21/19 06/21/19 06/20/19 History OLANZapine [Zyprexa] 15 mg PO HS 06/21/19 06/21/19 06/20/19 History OXcarbazepine [Trileptal] 1,200 mg PO Q12H 06/21/19 06/21/19 06/20/19 History Topiramate [Topamax] 200 mg PO BID 06/21/19 06/21/19 06/20/19 History lamoTRIgine [LaMICtal] 200 mg PO BID 06/21/19 06/21/19 06/20/19 History metFORMIN [Glucophage] 500 mg PO BIDWM 06/21/19 06/21/19 06/20/19 History Active Meds: Active Medications Acetaminophen (Tylenol) 650 mg PO Q4H PRN PRN Reason: Pain, Mild (1-3), fever>100.5 Atorvastatin Calcium (Lipitor) 40 mg PO QHS [facility] Last Admin: 06/21/19 22:43 Dose: 40 mg Documented by: Diphenhydramine HCl (Benadryl) 25 mg IV Q6H PRN PRN Reason: Itching Enoxaparin Sodium (Lovenox) 40 mg SUB-Q QDAY@1000 [facility] Last Admin: 06/22/19 14:11 Dose: 40 mg Documented by: Insulin Glargine (Lantus) 18 units SUB-Q QPM [facility] Insulin Human Lispro (Humalog) 0 unit SUB-Q ACHS [facility]; Protocol Last Admin: 06/22/19 13:59 Dose: Not Given Documented by: Lacosamide (Vimpat) 200 mg PO Q12HR [facility] Last Admin: 06/22/19 14:10 Dose: 200 mg Documented by: Lamotrigine (Lamictal) 200 mg PO BID [facility] Last Admin: 06/22/19 14:10 Dose: 200 mg Documented by: Lisinopril (Zestril) 10 mg PO QDAY [facility] Last Admin: 06/22/19 14:18 Dose: 10 mg Documented by: Metformin HCl (Glucophage) 500 mg PO BIDDIAB [facility] Last Admin: 06/22/19 14:12 Dose: Not Given Documented by: Olanzapine (Zyprexa) 15 mg PO QHS [facility] Last Admin: 06/21/19 22:44 Dose: 15 mg Documented by: Oxcarbazepine (Trileptal) 1,200 mg PO BID [facility] Last Admin: 06/22/19 14:10 Dose: 1,200 mg Documented by: Sodium Chloride (Sodium Chloride Flush Syringe 10 Ml) 10 ml IV PRN PRN PRN Reason: LINE FLUSH Topiramate (Topamax) 200 mg PO BID [facility] Last Admin: 06/22/19 14:10 Dose: 200 mg Documented by: Review of Systems All systems: negative Neurological: balance difficulties, gait dysfunction Physical Examination - Vital Signs Vital Signs: Vital Signs Temp Pulse Resp BP Pulse Ox 98.3 F 86 18 160/92 98 06/21/19 09:00 06/21/19 09:00 06/21/19 09:00 06/21/19 09:00 06/21/19 09:00 - Physical Exam Narrative exam: Patient is alert, awake, oriented 3 minus month. Follows complex commands. PERRL, visual lowe full, tongue midline, no facial weakness noted, bilaterally intact to light touch. EOMI, noted to have nystagmus on left gaze. 5/5 strength in all extremities. Decreased sensations on the left upper and lower extremity to light touch. 2+ reflexes throughout. Extremity symptoms noted to have mild dysmetria on left upper extremity to finger to nose, and left lower extremity on [id number]. Patient was noted to have significant unsteadiness in gait. - Constitutional General appearance: comfortable - EENT EENT: Present: ATNC, PERRL, mucous membranes moist, hearing intact, vision intact - Respiratory Respiratory: Present: lungs clear, normal breath sounds - Cardiovascular Cardiovascular: Present: regular rate, normal S1, normal S2 Extremities: Present: no clubbing, cyanosis, no inflammation - Gastrointestinal Gastrointestinal: Present: normoactive bowel sounds, soft, non-tender - Integumentary Integumentary: Present: normal - Musculoskeletal Musculoskeletal: Present: no fluid collection, no pain - Psychiatric Psychiatric: Present: mood/affect appropriate - Level of Consciousness 1a. Level of Consciousness: alert/keenly responsive - LOC Questions 1b. LOC Questions: answers 1 question correctly - LOC Command 1c. LOC Commands: performs tasks correctly - Best Gaze 2. Best Gaze: normal - Visual 3. Visual: no visual loss - Facial Palsy 4. Facial Palsy: normal symmetrical movement - Motor Arm 5a. Motor Arm Left: no drift 5b. Motor Arm Right: no drift - Motor Leg 6a. Motor Leg Left: no drift 6b. Motor Leg Right: no drift - Limb Ataxia 7. Limb Ataxia: present 2 limbs - Sensory 8. Sensory: mild/moderate sensory loss - Best Language 9. Best Language: no aphasia - Dysarthria 10. Dysarthria: normal - Extinction and Inattention 11. Extinction/Inattention: no abnormality - Scoring Total Score: 4 Stroke Severity: Minor Stroke Results - Laboratory Findings CBC and BMP: 06/21/19 10:02 06/21/19 10:02 Abnormal Lab Findings: Abnormal Labs 06/21/19 06/21/19 06/21/19 10:02 16:57 21:58 Sodium 148 H BUN 7 L Glucose 147 H POC Glucose 111 H 231 H Magnesium Total Creatine Kinase LDL Cholesterol Direct Salicylates Acetaminophen 06/21/19 06/21/19 06/21/19 Unknown Unknown Unknown Sodium BUN Glucose POC Glucose Magnesium 1.40 L Total Creatine Kinase 206 H LDL Cholesterol Direct Salicylates < 0.3 L Acetaminophen < 5.0 L 06/22/19 06/22/19 06/22/19 08:12 13:07 14:28 Sodium BUN Glucose POC Glucose 119 H 148 H Magnesium Total Creatine Kinase LDL Cholesterol Direct 46 L Salicylates Acetaminophen 06/22/19 17:08 Sodium BUN Glucose POC Glucose 163 H Magnesium Total Creatine Kinase LDL Cholesterol Direct Salicylates Acetaminophen Assessment and Plan Patient is a 53 y/o man w/ a h/o HTN, HLD, DM, h/o seizures, h/o DBS placement, who presents with unsteadiness of gait for 3-5 days. According the patient's clinical findings, it is possible that he has had these symptoms due to increased levels of antiseizure medications. Alternatively, the patient may have had a cerebellar stroke. Plan: 1. Unsteady gait: - Check levels of AEDs, including lamotrigine, zonegram, trileptal, and topamax. - CT head unremarkable, no infarct noted, however may not be apparent on CT if there is a posterior fossa stroke, such as in the cerebellum. - CTA head/neck: no significant stenosis. - Start patient on plavix, as he is allergic to aspirin - Cont. statin. - PT/OT/ST - Telemetry monitoring while in house - Will continue to monitor neurologic status 2. Hypertension: - Target BP target of normotension, as it has been >48 hours since symptom onset. Thank you for allowing me to take part in the care of this patient.
--- NOTE | 2019-06-22 18:36 | Progress Note ---
Assessment and Plan Assessment and plan: Patient is a 53 yo AA man with a history of seizure disorder with metallic brain stimulator, HTN, HLD and DM type 2 who presented with unsteady gait. -Unsteady gait, sz meds vs CVA vs other: Neurology is following, unable to do MRI because on metallic brain stimulator, treat with asa and statin. -Type 2 DM: ada, ssi, accuchecks -Dyslipidemia: statin -Hypertension: low salt diet DVT ppx: History Interval history: Patient was seen and examined. Follow-up on current diagnosis of CVA. No overnight events reported to me. Patient denies any chest pain, shortness breath, nausea/vomiting or severe headaches. Imaging, nursing note, chart, labs and old chart reviewed. Discussed with patient. Hospitalist Physical - Physical exam Narrative exam: Gen: WDWN, NAD, Awake, Alert, Orientated HEENT: NCAT, EOMI, PERRL, OP Clear Neck: supple, no adenopathy, no thyromegaly, no JVD CVS/Heart: RRR, normal S1S2, pulses present bilaterally Chest/Lungs: CTA B, Symmetrical chest expansion, good air entry bilaterally GI/Abdomen: soft, NTND, good bowel sounds, no guarding or rebound /Bladder: no suprapubic tenderness, no CVA or paraspinal tenderness Extermity/Skin: no c/c/e, no obvious rash MSK: FROM x 4 Neuro: CN 2-12 grossly intact, no new focal deficits Psych: calm - Constitutional Vitals: Temp Pulse Resp BP Pulse Ox 98.5 F 74 20 169/99 100 06/22/19 17:01 06/22/19 17:01 06/22/19 17:01 06/22/19 17:01 06/22/19 17:01 Results - Labs CBC & Chem 7: 06/21/19 10:02 06/21/19 10:02 Labs: Laboratory Last Values WBC 7.9 K/mm3 (4.5-11.0) 06/21/19 10:02 RBC 4.71 M/mm3 (3.65-5.03) 06/21/19 10:02 Hgb 13.1 gm/dl (11.8-15.2) 06/21/19 10:02 Hct 40.0 % (35.5-45.6) 06/21/19 10:02 MCV 85 fl (84-94) 06/21/19 10:02 MCH 28 pg (28-32) 06/21/19 10:02 MCHC 33 % (32-34) 06/21/19 10:02 RDW 15.2 % (13.2-15.2) 06/21/19 10:02 Plt Count 234 K/mm3 (140-440) 06/21/19 10:02 Lymph % (Auto) 28.6 % (13.4-35.0) 06/21/19 10:02 Jay % (Auto) 5.9 % (0.0-7.3) 06/21/19 10:02 Eos % (Auto) 0.5 % (0.0-4.3) 06/21/19 10:02 Baso % (Auto) 1.3 % (0.0-1.8) 06/21/19 10:02 Lymph # 2.3 K/mm3 (1.2-5.4) 06/21/19 10:02 Jay # 0.5 K/mm3 (0.0-0.8) 06/21/19 10:02 Eos # 0.0 K/mm3 (0.0-0.4) 06/21/19 10:02 Baso # 0.1 K/mm3 (0.0-0.1) 06/21/19 10:02 Seg Neutrophils % 63.7 % (40.0-70.0) 06/21/19 10:02 Seg Neutrophils # 5.0 K/mm3 (1.8-7.7) 06/21/19 10:02 PT 12.2 Sec. (12.2-14.9) 06/21/19 10:02 INR 0.93 (0.87-1.13) 06/21/19 10:02 Sodium 148 mmol/L (137-145) H 06/21/19 10:02 Potassium 4.1 mmol/L (3.6-5.0) 06/21/19 10:02 Chloride 104.9 mmol/L (98-107) 06/21/19 10:02 Carbon Dioxide 26 mmol/L (22-30) 06/21/19 10:02 Anion Gap 21 mmol/L 06/21/19 10:02 BUN 7 mg/dL (9-20) L 06/21/19 10:02 Creatinine 0.8 mg/dL (0.8-1.5) 06/21/19 10:02 Estimated GFR > 60 ml/min 06/21/19 10:02 BUN/Creatinine Ratio 9 % 06/21/19 10:02 Glucose 147 mg/dL (75-100) H 06/21/19 10:02 POC Glucose 163 (70-105) H 06/22/19 17:08 Calcium 9.4 mg/dL (8.4-10.2) 06/21/19 10:02 Magnesium 1.40 mg/dL (1.7-2.3) L 06/21/19 Unknown Total Bilirubin 0.40 mg/dL (0.1-1.2) 06/21/19 10:02 AST 10 units/L (5-40) 06/21/19 10:02 ALT 7 units/L (7-56) 06/21/19 10:02 Alkaline Phosphatase 106 units/L (35-129) 06/21/19 10:02 Ammonia 48.0 umol/L (25-60) 06/21/19 11:44 Total Creatine Kinase 206 units/L (55-170) H 06/21/19 Unknown Troponin T < 0.010 ng/mL (0.00-0.029) 06/21/19 10:02 Total Protein 7.6 g/dL (6.3-8.2) 06/21/19 10:02 Albumin 4.9 g/dL (3.9-5) 06/21/19 10:02 Albumin/Globulin Ratio 1.8 % 06/21/19 10:02 Triglycerides 114 mg/dL (2-149) 06/22/19 14:28 Cholesterol 104 mg/dL (50-199) 06/22/19 14:28 LDL Cholesterol Direct 46 mg/dL (50-130) L 06/22/19 14:28 HDL Cholesterol 41 mg/dL (40-59) 06/22/19 14:28 Cholesterol/HDL Ratio 2.53 % 06/22/19 14:28 Vitamin B12 525.8 pg/mL (211-911) 06/21/19 Unknown Folate 12.13 ng/mL (7.3-26.0) 06/21/19 Unknown TSH 0.753 mlU/mL (0.270-4.200) 06/21/19 Unknown Salicylates < 0.3 mg/dL (2.8-20.0) L 06/21/19 Unknown Acetaminophen < 5.0 ug/mL (10.0-30.0) L 06/21/19 Unknown Plasma/Serum Alcohol < 0.01 % (0-0.07) 06/21/19 Unknown Active Medications - Current Medications Current Medications: Generic Name Dose Route Start Last Admin Trade Name Freq PRN Reason Stop Dose Admin Acetaminophen 650 mg 06/21/19 23:58 Tylenol PO Q4H PRN Pain, Mild (1-3), fever>100.5 Atorvastatin Calcium 40 mg 06/21/19 22:00 06/21/19 22:43 Lipitor PO 40 mg QHS [facility] Administration Clopidogrel Bisulfate 75 mg 06/23/19 10:00 Plavix PO QDAY [facility] Diphenhydramine HCl 25 mg 06/21/19 21:09 Benadryl IV Q6H PRN Itching Enoxaparin Sodium 40 mg 06/22/19 10:00 06/22/19 14:11 Lovenox SUB-Q 40 mg QDAY@1000 [facility] Administration Insulin Glargine 18 units 06/22/19 18:00 Lantus SUB-Q QPM [facility] Insulin Human Lispro 0 unit 06/21/19 22:00 06/22/19 13:59 Humalog SUB-Q Not Given ACHS [facility] Protocol Lacosamide 200 mg 06/21/19 22:00 06/22/19 14:10 Vimpat PO 200 mg Q12HR [facility] Administration Lamotrigine 200 mg 06/21/19 22:00 06/22/19 14:10 Lamictal PO 200 mg BID [facility] Administration Lisinopril 10 mg 06/21/19 20:00 06/22/19 14:18 Zestril PO 10 mg QDAY [facility] Administration Metformin HCl 500 mg 06/21/19 20:00 06/22/19 14:12 Glucophage PO Not Given BIDDIAB [facility] Olanzapine 15 mg 06/21/19 22:00 06/21/19 22:44 Zyprexa PO 15 mg QHS [facility] Administration Oxcarbazepine 1,200 mg 06/21/19 22:00 06/22/19 14:10 Trileptal PO 1,200 mg BID [facility] Administration Sodium Chloride 10 ml 06/21/19 19:55 Sodium Chloride Flush Syringe 10 Ml IV PRN PRN LINE FLUSH Topiramate 200 mg 06/21/19 22:00 06/22/19 14:10 Topamax PO 200 mg BID [facility] Administration
[2019-06-22] MEDS: LANTUS SUB-Q SCH (18:58)
[2019-06-22] MEDS ORDERED: ATIVAN IV ONE (21:47)
[2019-06-23] MEDS: HumaLOG SUB-Q SCH ×4 (09:31→22:16)
[2019-06-23] MEDS: LaMICtal PO SCH ×2 (09:34→21:14)
[2019-06-23] MEDS: PLAVIX PO SCH (09:34)
[2019-06-23] MEDS: TRILEPTAL PO SCH ×2 (09:34→21:18)
[2019-06-23] MEDS: VIMPAT PO SCH ×2 (09:34→21:15)
[2019-06-23] MEDS: GLUCOPHAGE PO SCH ×2 (09:34→17:56)
[2019-06-23] MEDS: TOPAMAX PO SCH ×2 (09:35→21:15)
[2019-06-23] MEDS: ZESTRIL PO SCH (09:35)
[2019-06-23] MEDS: LOVENOX SUB-Q SCH (09:36)
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
--- NOTE | 2019-06-23 12:43 | Consultation ---
History of Present Illness - Reason for Consult Consult date: 06/23/19 Reason for consult: Mental Health Evaluation Requesting physician: EDUARDO STEINBERG - Chief Complaint Chief complaint: "I'm okay today" - History of Present Psychiatric Illness 53 y.o. AA male who presented to the Er for unsteady gait. Psychiatry was consulted to see the patient for behavioral disturbance. Today the patient was calm and cooperative during the assessment. He was asked about the events (agitation) that happened yesterday evening, the patient stated, "I don't remember." He was able to answer most questions about his seizures when asked. Per collateral information from his Ms Fabi Harvey who was at the bedside, she stated that her do not have a mental health hx. She stated that he has a hard time dealing with his illness (seizures) since he was dx in 2012. She stated that he used to drive trucks for a living, now he cannot drive at all. The patient confirmed what his said. He denies being depressed, but acknowledged that he can become "sad" at times when he think about his past and where he's at currently reference his medical issue (seizures). He denies any previous suicide attempts or other self injury behavior. He stated that he would like a referral to see a therapist when he is discharged. The patient denies SI/HI's and AVH's. He denies erratic sleep and a poor appetite. He denies recreational drug use and alcohol consumption (etoh). Medications and Allergies Allergies Allergy/AdvReac Type Severity Reaction Status Date / Time aspirin Allergy Unknown Verified 11/09/18 15:09 Home Medications Medication Instructions Recorded Confirmed Last Taken Type Atorvastatin [Lipitor Tab] 40 mg PO QHS 06/21/19 06/21/19 06/20/19 History Insulin Glargine [Lantus VIAL] 18 units SUB-Q QPM 06/21/19 06/21/19 Unknown History Lacosamide [Vimpat] 200 mg PO BID 06/21/19 06/21/19 06/20/19 History Lisinopril [Zestril TAB] 10 mg PO QDAY 06/21/19 06/21/19 06/20/19 History OLANZapine [Zyprexa] 15 mg PO HS 06/21/19 06/21/19 06/20/19 History OXcarbazepine [Trileptal] 1,200 mg PO Q12H 06/21/19 06/21/19 06/20/19 History Topiramate [Topamax] 200 mg PO BID 06/21/19 06/21/19 06/20/19 History lamoTRIgine [LaMICtal] 200 mg PO BID 06/21/19 06/21/19 06/20/19 History metFORMIN [Glucophage] 500 mg PO BIDWM 06/21/19 06/21/19 06/20/19 History Active Meds: Active Medications Acetaminophen (Tylenol) 650 mg PO Q4H PRN PRN Reason: Pain, Mild (1-3), fever>100.5 Atorvastatin Calcium (Lipitor) 40 mg PO QHS [facility] Last Admin: 06/22/19 21:50 Dose: 40 mg Documented by: Clopidogrel Bisulfate (Plavix) 75 mg PO QDAY [facility] Last Admin: 06/23/19 09:34 Dose: 75 mg Documented by: Diphenhydramine HCl (Benadryl) 25 mg IV Q6H PRN PRN Reason: Itching Last Admin: 06/22/19 21:51 Dose: 25 mg Documented by: Enoxaparin Sodium (Lovenox) 40 mg SUB-Q QDAY@1000 [facility] Last Admin: 06/23/19 09:36 Dose: 40 mg Documented by: Hydralazine HCl (Apresoline) 10 mg IV Q4H PRN PRN Reason: Blood Pressure Insulin Glargine (Lantus) 18 units SUB-Q QPM [facility] Last Admin: 06/22/19 18:58 Dose: 18 units Documented by: Insulin Human Lispro (Humalog) 0 unit SUB-Q [facility]; Protocol Last Admin: 06/23/19 09:31 Dose: 3 unit Documented by: Lacosamide (Vimpat) 200 mg PO Q12HR [facility] Last Admin: 06/23/19 09:34 Dose: 200 mg Documented by: Lamotrigine (Lamictal) 200 mg PO BID [facility] Last Admin: 06/23/19 09:34 Dose: 200 mg Documented by: Lisinopril (Zestril) 10 mg PO QDAY [facility] Last Admin: 06/23/19 09:35 Dose: 10 mg Documented by: Metformin HCl (Glucophage) 500 mg PO BIDDIAB [facility] Last Admin: 06/23/19 09:34 Dose: 500 mg Documented by: Olanzapine (Zyprexa) 15 mg PO QHS [facility] Last Admin: 06/22/19 21:51 Dose: 15 mg Documented by: Oxcarbazepine (Trileptal) 1,200 mg PO BID [facility] Last Admin: 06/23/19 09:34 Dose: 1,200 mg Documented by: Sodium Chloride (Sodium Chloride Flush Syringe 10 Ml) 10 ml IV PRN PRN PRN Reason: LINE FLUSH Topiramate (Topamax) 200 mg PO BID [facility] Last Admin: 06/23/19 09:35 Dose: 200 mg Documented by: Past psychiatric history - Past Medical History Past Medical History: seizures Past Surgical History: Other (Deep Brain Stimulator ) - past Psychiatric treatment and history psychiatric treatment history: Denies a psy hx and a fam psy hx. - Social History Social history: lives with family Mental Status Exam - Vital signs Last Vital Signs Temp 98.1 F 06/23/19 05:31 Pulse 81 06/23/19 05:31 Resp 22 06/23/19 05:31 BP 199/104 06/23/19 05:31 Pulse Ox 98 06/23/19 05:31 - Exam Narrative exam: MSE: Appearance: calm, cooperative Behavior: regular eye contact Speech: regular rate and loud tone Mood: "okay" Affect: congruent to mood Thought Process: circumstantial Thought Content: denies SI/HI's with AVH's Motor Activity: ambulatory Cognition: A/Ox 3 Insight: fair Judgment: fair + Results Result Diagrams: 06/21/19 10:02 06/21/19 10:02 Abnormal lab results 06/22/19 06/22/19 06/22/19 Range/Units 13:07 14:28 17:08 POC Glucose 148 H 163 H (70-105) LDL Cholesterol Direct 46 L (50-130) mg/dL 06/22/19 06/23/19 06/23/19 Range/Units 23:01 07:57 11:23 POC Glucose 115 H 208 H 172 H (70-105) LDL Cholesterol Direct (50-130) mg/dL All other labs normal. Assessment and Plan Assessment and plan: Impression: Adjustment DO. Today the patient was calm and cooperative during the assessment. The patient was in restraints. Neuro is following the patient. DDx: MDD Recommendation/Plan: Will follow up with the patient in 24 hours. Dispo: The patient can follow up with [facility] outpatient psy services (therapy). Will staff with Dr Earl De La O.
--- NOTE | 2019-06-23 15:19 | Progress Note ---
Assessment and Plan Patient is a 53 y/o man w/ a h/o HTN, HLD, DM, h/o seizures, h/o DBS placement, who presents with unsteadiness of gait for 3-5 days. According the patient's clinical findings, it is possible that he has had these symptoms due to increased levels of antiseizure medications. Alternatively, the patient may have had a cerebellar stroke. Plan: 1. Unsteady gait: - Check levels of AEDs, including lamotrigine, zonegram, trileptal, and topamax. - Levels pending. - CT head unremarkable, no infarct noted, however may not be apparent on CT if there is a posterior fossa stroke, such as in the cerebellum. - CTA head/neck: no significant stenosis. - Echo: EF 55-60%, LA normal size, bubble study negative. - Cont. patient on plavix, as he is allergic to aspirin - Cont. statin. - PT/OT/ST - Telemetry monitoring while in house - Will sign off as I am not covering neurology service over the weekend. Recommend for neurologist who is covering weekend to be consulted for further neurologic monitoring/management. 2. Hypertension: - Target BP target of normotension, as it has been >48 hours since symptom onset. Thank you for allowing me to take part in the care of this patient. Subjective Date of service: 06/23/19 Principal diagnosis: Ataxia, unsteady gait Interval history: No acute events overnight. Patient continues to have imbalanced gait. Objective - Exam Narrative Exam: Patient is alert, awake, oriented 3 minus month. Follows complex commands. PERRL, visual lowe full, tongue midline, no facial weakness noted, bilaterally intact to light touch. EOMI, noted to have nystagmus on left gaze. 5/5 strength in all extremities. Decreased sensations on the left upper and lower extremity to light touch. 2+ reflexes throughout. Extremity symptoms noted to have mild dysmetria on left upper extremity to finger to nose, and left lower extremity on [id number]. Patient was noted to have significant unsteadiness in gait. - Vital Sign Vital Signs - 12hr 06/23/19 06/23/19 05:31 11:12 Temperature 98.1 F 98.1 F Pulse Rate 81 94 H Respiratory 22 20 Rate Blood Pressure 199/104 173/98 O2 Sat by Pulse 98 98 Oximetry - General Apperance Constitutional: comfortable - EENT EENT: ATNC, PERRL, mucous membranes moist - Respiratory Respiratory: lungs clear, normal breath sounds - Cardiovascular Cardiovascular: regular rate, normal S1, normal S2 Extremities: no clubbing, cyanosis, no inflammation - Gastrointestinal Gastrointestinal: normoactive bowel sounds, soft, non-tender - Integumentary Integumentary: normal - Musculoskeletal Musculoskeletal: no fluid collection, no pain - Psychiatric Psychiatric: mood/affect appropriate - Laboratory Findings CBC and BMP: 06/21/19 10:02 06/21/19 10:02 Abnormal Lab Findings: Abnormal Labs 06/21/19 06/21/19 06/21/19 10:02 16:57 21:58 Sodium 148 H BUN 7 L Glucose 147 H POC Glucose 111 H 231 H Magnesium Total Creatine Kinase LDL Cholesterol Direct Salicylates Acetaminophen 06/21/19 06/21/19 06/21/19 Unknown Unknown Unknown Sodium BUN Glucose POC Glucose Magnesium 1.40 L Total Creatine Kinase 206 H LDL Cholesterol Direct Salicylates < 0.3 L Acetaminophen < 5.0 L 06/22/19 06/22/19 06/22/19 08:12 13:07 14:28 Sodium BUN Glucose POC Glucose 119 H 148 H Magnesium Total Creatine Kinase LDL Cholesterol Direct 46 L Salicylates Acetaminophen 06/22/19 06/22/19 06/23/19 17:08 23:01 07:57 Sodium BUN Glucose POC Glucose 163 H 115 H 208 H Magnesium Total Creatine Kinase LDL Cholesterol Direct Salicylates Acetaminophen 06/23/19 11:23 Sodium BUN Glucose POC Glucose 172 H Magnesium Total Creatine Kinase LDL Cholesterol Direct Salicylates Acetaminophen
[2019-06-23 16:35] LABS: Hematocrit 42.4 % (35.5-45.6); Hemoglobin 13.8 gm/dl (11.8-15.2); Mean Corpuscular HGB Conc 33 % (32-34); Mean Corpuscular Volume 86 fl (84-94); Platelet Count 274 K/mm3 (140-440); Red Blood Count 4.96 M/mm3 (3.65-5.03); Red Cell Distribution Width 15.1 % (13.2-15.2)
[2019-06-23 17:27] LABS: BUN/Creatinine Ratio 8; Blood Urea Nitrogen 6 mg/dL (9-20); Calcium 9.8 mg/dL (8.4-10.2); Hemolysis Index 120
[2019-06-23] MEDS: LANTUS SUB-Q SCH (18:16)
[2019-06-23] MEDS: APRESOLINE IV PRN (19:41)
[2019-06-24] MEDS: HumaLOG SUB-Q SCH ×4 (08:59→22:11)
[2019-06-24] MEDS: TOPAMAX PO SCH ×2 (09:23→22:16)
[2019-06-24] MEDS: LOVENOX SUB-Q SCH (09:23)
[2019-06-24] MEDS: PLAVIX PO SCH (09:23)
[2019-06-24] MEDS: VIMPAT PO SCH ×2 (09:23→22:03)
[2019-06-24] MEDS: TRILEPTAL PO SCH ×2 (09:23→22:03)
[2019-06-24] MEDS: GLUCOPHAGE PO SCH (09:24)
[2019-06-24] MEDS: ZESTRIL PO SCH (09:24)
[2019-06-24] MEDS: LaMICtal PO SCH ×2 (09:28→22:04)
[2019-06-24] MEDS: ATIVAN IV PRN ×2 (10:00→16:15)
--- NOTE | 2019-06-24 11:03 | Progress Note ---
Assessment and Plan Assessment and plan: Patient is a 53 yo AA man with a history of seizure disorder with metallic brain stimulator, HTN, HLD and DM type 2 who presented with unsteady gait. -Unsteady gait/ATaxia, sz meds vs CVA vs other: Neurology is following, unable to do MRI because on metallic brain stimulator, treat with asa and statin. -Acute encephalopathy: consulted Mental health, await call back from [place] Neurologist to establish mental health baseline. -Type 2 DM: ada, ssi, accuchecks -Dyslipidemia: statin -Hypertension: low salt diet DVT ppx: -Psychosis, ?post-ictical psychosis Trying to get patient transferred to [place] because that is where he usually goes. I spoke with Neurology, Dr. Rose and Epileptic team were suppose to call me back but did not. I reached out again to transfer patient and spoke with Maggie. Await call back History Interval history: Patient was seen and examined. Follow-up on current diagnosis of CVA. Today is very confused, disoriented and agitated Hospitalist Physical - Physical exam Narrative exam: Gen: WDWN, NAD, Awake, Alert, Orientated HEENT: NCAT, EOMI, PERRL, OP Clear Neck: supple, no adenopathy, no thyromegaly, no JVD CVS/Heart: RRR, normal S1S2, pulses present bilaterally Chest/Lungs: CTA B, Symmetrical chest expansion, good air entry bilaterally GI/Abdomen: soft, NTND, good bowel sounds, no guarding or rebound /Bladder: no suprapubic tenderness, no CVA or paraspinal tenderness Extermity/Skin: no c/c/e, no obvious rash MSK: FROM x 4 Neuro: CN 2-12 grossly intact, no new focal deficits Psych: calm - Constitutional Vitals: Temp Pulse Resp BP Pulse Ox 97.8 F 121 H 14 147/92 99 06/24/19 07:33 06/24/19 09:24 06/24/19 07:33 06/24/19 09:24 06/24/19 07:33 Results - Labs CBC & Chem 7: 06/23/19 16:25 06/23/19 16:24 Labs: Laboratory Last Values WBC 12.8 K/mm3 (4.5-11.0) H 06/23/19 16:25 RBC 4.96 M/mm3 (3.65-5.03) 06/23/19 16:25 Hgb 13.8 gm/dl (11.8-15.2) 06/23/19 16:25 Hct 42.4 % (35.5-45.6) 06/23/19 16:25 MCV 86 fl (84-94) 06/23/19 16:25 MCH 28 pg (28-32) 06/23/19 16:25 MCHC 33 % (32-34) 06/23/19 16:25 RDW 15.1 % (13.2-15.2) 06/23/19 16:25 Plt Count 274 K/mm3 (140-440) 06/23/19 16:25 Lymph % (Auto) 28.6 % (13.4-35.0) 06/21/19 10:02 [place] % (Auto) 5.9 % (0.0-7.3) 06/21/19 10:02 Eos % (Auto) 0.5 % (0.0-4.3) 06/21/19 10:02 Baso % (Auto) 1.3 % (0.0-1.8) 06/21/19 10:02 Lymph # 2.3 K/mm3 (1.2-5.4) 06/21/19 10:02 [place] # 0.5 K/mm3 (0.0-0.8) 06/21/19 10:02 Eos # 0.0 K/mm3 (0.0-0.4) 06/21/19 10:02 Baso # 0.1 K/mm3 (0.0-0.1) 06/21/19 10:02 Seg Neutrophils % 63.7 % (40.0-70.0) 06/21/19 10:02 Seg Neutrophils # 5.0 K/mm3 (1.8-7.7) 06/21/19 10:02 PT 12.2 Sec. (12.2-14.9) 06/21/19 10:02 INR 0.93 (0.87-1.13) 06/21/19 10:02 Sodium 138 mmol/L (137-145) D 06/23/19 16:24 Potassium 4.5 mmol/L (3.6-5.0) 06/23/19 16:24 Chloride 102.0 mmol/L (98-107) 06/23/19 16:24 Carbon Dioxide 15 mmol/L (22-30) L D 06/23/19 16:24 Anion Gap 26 mmol/L 06/23/19 16:24 BUN 6 mg/dL (9-20) L 06/23/19 16:24 Creatinine 0.8 mg/dL (0.8-1.5) 06/23/19 16:24 Estimated GFR > 60 ml/min 06/23/19 16:24 BUN/Creatinine Ratio 8 % 06/23/19 16:24 Glucose 206 mg/dL (75-100) H 06/23/19 16:24 POC Glucose 217 (70-105) H 06/24/19 07:19 Calcium 9.8 mg/dL (8.4-10.2) 06/23/19 16:24 Magnesium 1.40 mg/dL (1.7-2.3) L 06/21/19 Unknown Total Bilirubin 0.40 mg/dL (0.1-1.2) 06/21/19 10:02 AST 10 units/L (5-40) 06/21/19 10:02 ALT 7 units/L (7-56) 06/21/19 10:02 Alkaline Phosphatase 106 units/L (35-129) 06/21/19 10:02 Ammonia 48.0 umol/L (25-60) 06/21/19 11:44 Total Creatine Kinase 206 units/L (55-170) H 06/21/19 Unknown Troponin T < 0.010 ng/mL (0.00-0.029) 06/21/19 10:02 Total Protein 7.6 g/dL (6.3-8.2) 06/21/19 10:02 Albumin 4.9 g/dL (3.9-5) 06/21/19 10:02 Albumin/Globulin Ratio 1.8 % 06/21/19 10:02 Triglycerides 114 mg/dL (2-149) 06/22/19 14:28 Cholesterol 104 mg/dL (50-199) 06/22/19 14:28 LDL Cholesterol Direct 46 mg/dL (50-130) L 06/22/19 14:28 HDL Cholesterol 41 mg/dL (40-59) 06/22/19 14:28 Cholesterol/HDL Ratio 2.53 % 06/22/19 14:28 Vitamin B12 525.8 pg/mL (211-911) 06/21/19 Unknown Folate 12.13 ng/mL (7.3-26.0) 06/21/19 Unknown TSH 0.753 mlU/mL (0.270-4.200) 06/21/19 Unknown Salicylates < 0.3 mg/dL (2.8-20.0) L 06/21/19 Unknown Acetaminophen < 5.0 ug/mL (10.0-30.0) L 06/21/19 Unknown Plasma/Serum Alcohol < 0.01 % (0-0.07) 06/21/19 Unknown Active Medications - Current Medications Current Medications: Generic Name Dose Route Start Last Admin Trade Name Freq PRN Reason Stop Dose Admin Acetaminophen 650 mg 06/21/19 23:58 Tylenol PO Q4H PRN Pain, Mild (1-3), fever>100.5 Atorvastatin Calcium 40 mg 06/21/19 22:00 06/23/19 21:15 Lipitor PO 40 mg QHS [facility] Administration Clopidogrel Bisulfate 75 mg 06/23/19 10:00 06/24/19 09:23 Plavix PO 75 mg QDAY [facility] Administration Diphenhydramine HCl 25 mg 06/21/19 21:09 06/22/19 21:51 Benadryl IV 25 mg Q6H PRN Administration Itching Enoxaparin Sodium 40 mg 06/22/19 10:00 06/24/19 09:23 Lovenox SUB-Q 40 mg QDAY@1000 [facility] Administration Hydralazine HCl 10 mg 06/23/19 12:00 06/23/19 19:41 Apresoline IV 10 mg Q4H PRN Administration Blood Pressure Insulin Glargine 18 units 06/22/19 18:00 06/23/19 18:16 Lantus SUB-Q 18 units QPM [facility] Administration Insulin Human Lispro 0 unit 06/21/19 22:00 06/24/19 08:59 Humalog SUB-Q 3 unit ACHS [facility] Administration Protocol Lacosamide 200 mg 06/21/19 22:00 06/24/19 09:23 Vimpat PO 200 mg Q12HR [facility] Administration Lamotrigine 200 mg 06/21/19 22:00 06/24/19 09:28 Lamictal PO 200 mg BID [facility] Administration Lisinopril 10 mg 06/21/19 20:00 06/24/19 09:24 Zestril PO 10 mg QDAY [facility] Administration Lorazepam 1 mg 06/24/19 09:45 06/24/19 10:00 Ativan IV 1 mg Q4H PRN Administration Anxiety Metformin HCl 500 mg 06/21/19 20:00 06/24/19 09:24 Glucophage PO 500 mg BIDDIAB [facility] Administration Oxcarbazepine 1,200 mg 06/21/19 22:00 06/24/19 09:23 Trileptal PO 1,200 mg BID [facility] Administration Sodium Chloride 10 ml 06/21/19 19:55 Sodium Chloride Flush Syringe 10 Ml IV PRN PRN LINE FLUSH Topiramate 200 mg 06/21/19 22:00 06/24/19 09:23 Topamax PO 200 mg BID [facility] Administration
--- NOTE | 2019-06-24 12:03 | Consultation ---
History of Present Illness - Reason for Consult Consult date: 06/24/19 Reason for consult: Mental health evaluation Requesting physician: EDUARDO STEINBERG - Chief Complaint Chief complaint: "I'm okay today" - History of Present Psychiatric Illness "I'm okay today" - History of Present Psychiatric Illness 53 y.o. AA male who presented to the ER initially for unsteady gait. Psychiatry was consulted to see the patient for behavioral disturbance. Today the patient was calm and cooperative during the assessment. Patient very confused and distracted today. He was disorganized at times and repetitive, but easily redirected. He had difficulty focusing on events of yesterday. He denies being depressed, but acknowledged that he can become "sad" at times , but unable to determine why he is sad. He denies any previous suicide attempts or other self injury behavior. Patient is in restraints, Staff reports that patient has been confused since last evening, and at times he was very agitated and hostile even. For safety they moved his room closer to the nurses station. He does not remember being hostile or trying to get out of the bed. The patient denies SI/HI's and AVH's. He denies erratic sleep and a poor appetite. He denies recreational drug use and alcohol consumption (etoh). Medications and Allergies Allergies Allergy/AdvReac Type Severity Reaction Status Date / Time aspirin Allergy Unknown Verified 11/09/18 15:09 Home Medications Medication Instructions Recorded Confirmed Last Taken Type Atorvastatin [Lipitor Tab] 40 mg PO QHS 06/21/19 06/21/19 06/20/19 History Insulin Glargine [Lantus VIAL] 18 units SUB-Q QPM 06/21/19 06/21/19 Unknown History Lacosamide [Vimpat] 200 mg PO BID 06/21/19 06/21/19 06/20/19 History Lisinopril [Zestril TAB] 10 mg PO QDAY 06/21/19 06/21/19 06/20/19 History OLANZapine [Zyprexa] 15 mg PO HS 06/21/19 06/21/19 06/20/19 History OXcarbazepine [Trileptal] 1,200 mg PO Q12H 06/21/19 06/21/19 06/20/19 History Topiramate [Topamax] 200 mg PO BID 06/21/19 06/21/19 06/20/19 History lamoTRIgine [LaMICtal] 200 mg PO BID 06/21/19 06/21/19 06/20/19 History metFORMIN [Glucophage] 500 mg PO BIDWM 06/21/19 06/21/19 06/20/19 History Active Meds: Active Medications Acetaminophen (Tylenol) 650 mg PO Q4H PRN PRN Reason: Pain, Mild (1-3), fever>100.5 Atorvastatin Calcium (Lipitor) 40 mg PO QHS [facility] Last Admin: 06/22/19 21:50 Dose: 40 mg Documented by: Clopidogrel Bisulfate (Plavix) 75 mg PO QDAY [facility] Last Admin: 06/23/19 09:34 Dose: 75 mg Documented by: Diphenhydramine HCl (Benadryl) 25 mg IV Q6H PRN PRN Reason: Itching Last Admin: 06/22/19 21:51 Dose: 25 mg Documented by: Enoxaparin Sodium (Lovenox) 40 mg SUB-Q QDAY@1000 [facility] Last Admin: 06/23/19 09:36 Dose: 40 mg Documented by: Hydralazine HCl (Apresoline) 10 mg IV Q4H PRN PRN Reason: Blood Pressure Insulin Glargine (Lantus) 18 units SUB-Q QPM [facility] Last Admin: 06/22/19 18:58 Dose: 18 units Documented by: Insulin Human Lispro (Humalog) 0 unit SUB-Q [facility]; Protocol Last Admin: 06/23/19 09:31 Dose: 3 unit Documented by: Lacosamide (Vimpat) 200 mg PO Q12HR [facility] Last Admin: 06/23/19 09:34 Dose: 200 mg Documented by: Lamotrigine (Lamictal) 200 mg PO BID [facility] Last Admin: 06/23/19 09:34 Dose: 200 mg Documented by: Lisinopril (Zestril) 10 mg PO QDAY [facility] Last Admin: 06/23/19 09:35 Dose: 10 mg Documented by: Metformin HCl (Glucophage) 500 mg PO BIDDIAB [facility] Last Admin: 06/23/19 09:34 Dose: 500 mg Documented by: Olanzapine (Zyprexa) 15 mg PO QHS [facility] Last Admin: 06/22/19 21:51 Dose: 15 mg Documented by: Oxcarbazepine (Trileptal) 1,200 mg PO BID [facility] Last Admin: 06/23/19 09:34 Dose: 1,200 mg Documented by: Sodium Chloride (Sodium Chloride Flush Syringe 10 Ml) 10 ml IV PRN PRN PRN Reason: LINE FLUSH Topiramate (Topamax) 200 mg PO BID [facility] Last Admin: 06/23/19 09:35 Dose: 200 mg Documented by: Past psychiatric history - Past Medical History Past Medical History: seizures Past Surgical History: Other (Deep Brain Stimulator ) - past Psychiatric treatment and history psychiatric treatment history: Denies a psy hx and a fam psy hx. - Social History Social history: lives with family Mental Status Exam - Vital signs Last Vital Signs Temp 98.1 F 06/23/19 05:31 Pulse 81 06/23/19 05:31 Resp 22 06/23/19 05:31 BP 199/104 06/23/19 05:31 Pulse Ox 98 06/23/19 05:31 - Exam Narrative exam: MSE: Appearance: calm, cooperative Behavior: regular eye contact Speech: regular rate and soft Mood: "okay" Affect: congruent to mood Thought Process: circumstantial Thought Content: denies SI/HI's with AVH's Motor Activity: ambulatory Cognition: A/Ox 3 Insight: fair Judgment: fair + Results Result Diagrams: 06/21/19 10:02 06/21/19 10:02 Abnormal lab results 06/22/19 06/22/19 06/22/19 Range/Units 13:07 14:28 17:08 POC Glucose 148 H 163 H (70-105) LDL Cholesterol Direct 46 L (50-130) mg/dL 06/22/19 06/23/19 06/23/19 Range/Units 23:01 07:57 11:23 POC Glucose 115 H 208 H 172 H (70-105) LDL Cholesterol Direct (50-130) mg/dL All other labs normal. Assessment and Plan Assessment and plan: Impression: Adjustment DO. Today the patient was confused today disorganized. The patient was in restraints. Neuro is following the patient. DDx: MDD Recommendation/Plan: Will follow up with the patient in 24 hours. Dispo: The patient can follow up with [facility] outpatient psy services (therapy). Will staff with Dr Earl De La O. Medications and Allergies Allergies Allergy/AdvReac Type Severity Reaction Status Date / Time aspirin Allergy Unknown Verified 11/09/18 15:09 Home Medications Medication Instructions Recorded Confirmed Last Taken Type Atorvastatin [Lipitor Tab] 40 mg PO QHS 06/21/19 06/21/19 06/20/19 History Insulin Glargine [Lantus VIAL] 18 units SUB-Q QPM 06/21/19 06/21/19 Unknown History Lacosamide [Vimpat] 200 mg PO BID 06/21/19 06/21/19 06/20/19 History Lisinopril [Zestril TAB] 10 mg PO QDAY 06/21/19 06/21/19 06/20/19 History OLANZapine [Zyprexa] 15 mg PO HS 06/21/19 06/21/19 06/20/19 History OXcarbazepine [Trileptal] 1,200 mg PO Q12H 06/21/19 06/21/19 06/20/19 History Topiramate [Topamax] 200 mg PO BID 06/21/19 06/21/19 06/20/19 History lamoTRIgine [LaMICtal] 200 mg PO BID 06/21/19 06/21/19 06/20/19 History metFORMIN [Glucophage] 500 mg PO BIDWM 06/21/19 06/21/19 06/20/19 History Active Meds: Active Medications Acetaminophen (Tylenol) 650 mg PO Q4H PRN PRN Reason: Pain, Mild (1-3), fever>100.5 Atorvastatin Calcium (Lipitor) 40 mg PO QHS [facility] Last Admin: 06/23/19 21:15 Dose: 40 mg Documented by: Clopidogrel Bisulfate (Plavix) 75 mg PO QDAY [facility] Last Admin: 06/24/19 09:23 Dose: 75 mg Documented by: Diphenhydramine HCl (Benadryl) 25 mg IV Q6H PRN PRN Reason: Itching Last Admin: 06/22/19 21:51 Dose: 25 mg Documented by: Enoxaparin Sodium (Lovenox) 40 mg SUB-Q QDAY@1000 [facility] Last Admin: 06/24/19 09:23 Dose: 40 mg Documented by: Hydralazine HCl (Apresoline) 10 mg IV Q4H PRN PRN Reason: Blood Pressure Last Admin: 06/23/19 19:41 Dose: 10 mg Documented by: Insulin Glargine (Lantus) 18 units SUB-Q QPM [facility] Last Admin: 06/23/19 18:16 Dose: 18 units Documented by: Insulin Human Lispro (Humalog) 0 unit SUB-Q ACHS [facility]; Protocol Last Admin: 06/24/19 08:59 Dose: 3 unit Documented by: Lacosamide (Vimpat) 200 mg PO Q12HR [facility] Last Admin: 06/24/19 09:23 Dose: 200 mg Documented by: Lamotrigine (Lamictal) 200 mg PO BID [facility] Last Admin: 06/24/19 09:28 Dose: 200 mg Documented by: Lisinopril (Zestril) 10 mg PO QDAY [facility] Last Admin: 06/24/19 09:24 Dose: 10 mg Documented by: Lorazepam (Ativan) 1 mg IV Q4H PRN PRN Reason: Anxiety Last Admin: 06/24/19 10:00 Dose: 1 mg Documented by: Metformin HCl (Glucophage) 500 mg PO BIDDIAB [facility] Last Admin: 06/24/19 09:24 Dose: 500 mg Documented by: Oxcarbazepine (Trileptal) 1,200 mg PO BID [facility] Last Admin: 06/24/19 09:23 Dose: 1,200 mg Documented by: Sodium Chloride (Sodium Chloride Flush Syringe 10 Ml) 10 ml IV PRN PRN PRN Reason: LINE FLUSH Topiramate (Topamax) 200 mg PO BID [facility] Last Admin: 06/24/19 09:23 Dose: 200 mg Documented by: Mental Status Exam - Vital signs Last Vital Signs Temp 97.8 F 06/24/19 07:33 Pulse 121 H 06/24/19 09:24 Resp 14 06/24/19 07:33 BP 147/92 06/24/19 09:24 Pulse Ox 99 06/24/19 07:33 Results Result Diagrams: 06/23/19 16:25 06/23/19 16:24 Abnormal lab results 06/23/19 06/23/19 06/23/19 Range/Units 11:23 16:22 16:24 WBC (4.5-11.0) K/mm3 Carbon Dioxide 15 L D (22-30) mmol/L BUN 6 L (9-20) mg/dL Glucose 206 H (75-100) mg/dL POC Glucose 172 H 196 H (70-105) 06/23/19 06/23/19 06/24/19 Range/Units 16:25 21:59 07:19 WBC 12.8 H (4.5-11.0) K/mm3 Carbon Dioxide (22-30) mmol/L BUN (9-20) mg/dL Glucose (75-100) mg/dL POC Glucose 166 H 217 H (70-105) 06/24/19 Range/Units 11:47 WBC (4.5-11.0) K/mm3 Carbon Dioxide (22-30) mmol/L BUN (9-20) mg/dL Glucose (75-100) mg/dL POC Glucose 147 H (70-105) All other labs normal.
[2019-06-24] MEDS: LANTUS SUB-Q SCH (17:35)
[2019-06-25] MEDS: ATIVAN IV PRN ×2 (04:06→15:40)
[2019-06-25] MEDS: HumaLOG SUB-Q SCH ×4 (09:15→22:33)
[2019-06-25] MEDS: TRILEPTAL PO SCH ×2 (09:36→22:32)
[2019-06-25] MEDS: ZESTRIL PO SCH (09:36)
[2019-06-25] MEDS: TOPAMAX PO SCH ×2 (09:37→22:00)
[2019-06-25] MEDS: LaMICtal PO SCH ×2 (09:37→22:32)
[2019-06-25] MEDS: VIMPAT PO SCH ×2 (09:37→22:32)
[2019-06-25] MEDS: LOVENOX SUB-Q SCH (09:37)
[2019-06-25] MEDS: PLAVIX PO SCH (09:38)
--- NOTE | 2019-06-25 12:32 | Progress Note ---
Assessment and Plan Assessment and plan: Patient is a 53 yo AA man with a history of seizure disorder with metallic brain stimulator, HTN, HLD and DM type 2 who presented with unsteady gait. -Unsteady gait/ATaxia, sz meds vs CVA vs other: Neurology is following, unable to do MRI because on metallic brain stimulator, treat with asa and statin. -Acute encephalopathy: consulted Mental health, await call back from [place] Neurologist to establish mental health baseline. -Suspected Cerebellar Acute Stroke: trying to get to [place], he has a brain stimulation, unable to turn off here -Type 2 DM: ada, ssi, accuchecks -Dyslipidemia: statin -Hypertension: low salt diet DVT ppx: -Psychosis, ?post-ictical psychosis 06/23/19: I called [place] and spoke Dr. 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 he is on 5 different Anti-epileptics and Epileptic team was suppose to call me back per Dr. Rose, to see if the brain stimulator is MRI compatible but they did not 06/24/19: Trying to get patient transferred to [place] because that is where he usually goes. I spoke with Neurology, Dr. Rose and Epileptic team were suppose to call me back but did not. I reached out again today to transfer patient and spoke with Maggie. Await call back==> no beds available per Dr. Sexton. Patient had a seizure and treated with IV ativan 06/25/19: I called [place] transfer center, initially spoke with Nancy then Maggie again, no beds still but she will reach out to Dr. Sexton again and call me back. History Interval history: Patient was seen and examined. Follow-up on current diagnosis of CVA. Today is very confused, disoriented and agitated. He had seizure yesterday. Treat with IV ativan Hospitalist Physical - Physical exam Narrative exam: Gen: WDWN, NAD, Awake, Alert, Orientated HEENT: NCAT, EOMI, PERRL, OP Clear Neck: supple, no adenopathy, no thyromegaly, no JVD CVS/Heart: RRR, normal S1S2, pulses present bilaterally Chest/Lungs: CTA B, Symmetrical chest expansion, good air entry bilaterally GI/Abdomen: soft, NTND, good bowel sounds, no guarding or rebound /Bladder: no suprapubic tenderness, no CVA or paraspinal tenderness Extermity/Skin: no c/c/e, no obvious rash MSK: FROM x 4 Neuro: CN 2-12 grossly intact, no new focal deficits Psych: calm - Constitutional Vitals: Temp Pulse Resp BP Pulse Ox 97.3 F L 98 H 16 143/80 99 06/25/19 11:37 06/25/19 11:37 06/25/19 11:37 06/25/19 11:37 06/25/19 11:37 Results - Labs CBC & Chem 7: 06/23/19 16:25 06/23/19 16:24 Labs: Laboratory Last Values WBC 12.8 K/mm3 (4.5-11.0) H 06/23/19 16:25 RBC 4.96 M/mm3 (3.65-5.03) 06/23/19 16:25 Hgb 13.8 gm/dl (11.8-15.2) 06/23/19 16:25 Hct 42.4 % (35.5-45.6) 06/23/19 16:25 MCV 86 fl (84-94) 06/23/19 16:25 MCH 28 pg (28-32) 06/23/19 16:25 MCHC 33 % (32-34) 06/23/19 16:25 RDW 15.1 % (13.2-15.2) 06/23/19 16:25 Plt Count 274 K/mm3 (140-440) 06/23/19 16:25 Lymph % (Auto) 28.6 % (13.4-35.0) 06/21/19 10:02 Tillman % (Auto) 5.9 % (0.0-7.3) 06/21/19 10:02 Eos % (Auto) 0.5 % (0.0-4.3) 06/21/19 10:02 Baso % (Auto) 1.3 % (0.0-1.8) 06/21/19 10:02 Lymph # 2.3 K/mm3 (1.2-5.4) 06/21/19 10:02 Tillman # 0.5 K/mm3 (0.0-0.8) 06/21/19 10:02 Eos # 0.0 K/mm3 (0.0-0.4) 06/21/19 10:02 Baso # 0.1 K/mm3 (0.0-0.1) 06/21/19 10:02 Seg Neutrophils % 63.7 % (40.0-70.0) 06/21/19 10:02 Seg Neutrophils # 5.0 K/mm3 (1.8-7.7) 06/21/19 10:02 PT 12.2 Sec. (12.2-14.9) 06/21/19 10:02 INR 0.93 (0.87-1.13) 06/21/19 10:02 Sodium 138 mmol/L (137-145) D 06/23/19 16:24 Potassium 4.5 mmol/L (3.6-5.0) 06/23/19 16:24 Chloride 102.0 mmol/L (98-107) 06/23/19 16:24 Carbon Dioxide 15 mmol/L (22-30) L D 06/23/19 16:24 Anion Gap 26 mmol/L 06/23/19 16:24 BUN 6 mg/dL (9-20) L 06/23/19 16:24 Creatinine 0.8 mg/dL (0.8-1.5) 06/23/19 16:24 Estimated GFR > 60 ml/min 06/23/19 16:24 BUN/Creatinine Ratio 8 % 06/23/19 16:24 Glucose 206 mg/dL (75-100) H 06/23/19 16:24 POC Glucose 156 (70-105) H 06/24/19 21:23 Calcium 9.8 mg/dL (8.4-10.2) 06/23/19 16:24 Magnesium 1.40 mg/dL (1.7-2.3) L 06/21/19 Unknown Total Bilirubin 0.40 mg/dL (0.1-1.2) 06/21/19 10:02 AST 10 units/L (5-40) 06/21/19 10:02 ALT 7 units/L (7-56) 06/21/19 10:02 Alkaline Phosphatase 106 units/L (35-129) 06/21/19 10:02 Ammonia 48.0 umol/L (25-60) 06/21/19 11:44 Total Creatine Kinase 206 units/L (55-170) H 06/21/19 Unknown Troponin T < 0.010 ng/mL (0.00-0.029) 06/21/19 10:02 Total Protein 7.6 g/dL (6.3-8.2) 06/21/19 10:02 Albumin 4.9 g/dL (3.9-5) 06/21/19 10:02 Albumin/Globulin Ratio 1.8 % 06/21/19 10:02 Triglycerides 114 mg/dL (2-149) 06/22/19 14:28 Cholesterol 104 mg/dL (50-199) 06/22/19 14:28 LDL Cholesterol Direct 46 mg/dL (50-130) L 06/22/19 14:28 HDL Cholesterol 41 mg/dL (40-59) 06/22/19 14:28 Cholesterol/HDL Ratio 2.53 % 06/22/19 14:28 Vitamin B12 525.8 pg/mL (211-911) 06/21/19 Unknown Folate 12.13 ng/mL (7.3-26.0) 06/21/19 Unknown TSH 0.753 mlU/mL (0.270-4.200) 06/21/19 Unknown Salicylates < 0.3 mg/dL (2.8-20.0) L 06/21/19 Unknown Acetaminophen < 5.0 ug/mL (10.0-30.0) L 06/21/19 Unknown Plasma/Serum Alcohol < 0.01 % (0-0.07) 06/21/19 Unknown Active Medications - Current Medications Current Medications: Generic Name Dose Route Start Last Admin Trade Name Freq PRN Reason Stop Dose Admin Acetaminophen 650 mg 06/21/19 23:58 Tylenol PO Q4H PRN Pain, Mild (1-3), fever>100.5 Atorvastatin Calcium 40 mg 06/21/19 22:00 06/24/19 22:04 Lipitor PO 40 mg QHS [facility] Administration Clopidogrel Bisulfate 75 mg 06/23/19 10:00 06/25/19 09:38 Plavix PO 75 mg QDAY [facility] Administration Diphenhydramine HCl 25 mg 06/21/19 21:09 06/22/19 21:51 Benadryl IV 25 mg Q6H PRN Administration Itching Enoxaparin Sodium 40 mg 06/22/19 10:00 06/25/19 09:37 Lovenox SUB-Q 40 mg QDAY@1000 [facility] Administration Hydralazine HCl 10 mg 06/23/19 12:00 06/23/19 19:41 Apresoline IV 10 mg Q4H PRN Administration Blood Pressure Insulin Glargine 18 units 06/22/19 18:00 06/24/19 17:35 Lantus SUB-Q Not Given [facility] Insulin Human Lispro 0 unit 06/21/19 22:00 06/25/19 09:15 Humalog SUB-Q Not Given [facility] Protocol Lacosamide 200 mg 06/21/19 22:00 06/25/19 09:37 Vimpat PO 200 mg Q12HR [facility] Administration Lamotrigine 200 mg 06/21/19 22:00 06/25/19 09:37 Lamictal PO 200 mg BID [facility] Administration Lisinopril 10 mg 06/21/19 20:00 06/25/19 09:36 Zestril PO 10 mg QDAY [facility] Administration Lorazepam 1 mg 06/24/19 16:37 06/25/19 04:06 Ativan IV 1 mg Q4HR PRN Administration Seizures Oxcarbazepine 1,200 mg 06/21/19 22:00 06/25/19 09:36 Trileptal PO 1,200 mg BID [facility] Administration Sodium Chloride 10 ml 06/21/19 19:55 Sodium Chloride Flush Syringe 10 Ml IV PRN PRN LINE FLUSH Topiramate 200 mg 06/21/19 22:00 06/25/19 09:37 Topamax PO 200 mg BID [facility] Administration
--- NOTE | 2019-06-25 12:40 | Consultation ---
History of Present Illness - Reason for Consult Consult date: 06/25/19 Reason for consult: Mental Health Evaluation Requesting physician: SVEN NAGEL - Chief Complaint Chief complaint: "I'm okay today" - History of Present Psychiatric Illness "I'm okay today" - History of Present Psychiatric Illness 53 y.o. AA male who presented to the ER initially for unsteady gait. Psychiatry was consulted to see the patient for behavioral disturbance. Today patient has a sitter at bedside. He seems to be lethargic and confused less distracted today. He is difficult to engage at all today. Patient is not in restraints, Staff reports that patient has been confused and at times he was very agitated, but more resistant to when they are doing things to him. Unable to assess SI/HI's and AVH's. Staff reports erratic sleep and a poor appetite. Medications and Allergies Allergies Allergy/AdvReac Type Severity Reaction Status Date / Time aspirin Allergy Unknown Verified 11/09/18 15:09 Home Medications Medication Instructions Recorded Confirmed Last Taken Type Atorvastatin [Lipitor Tab] 40 mg PO QHS 06/21/19 06/21/19 06/20/19 History Insulin Glargine [Lantus VIAL] 18 units SUB-Q QPM 06/21/19 06/21/19 Unknown History Lacosamide [Vimpat] 200 mg PO BID 06/21/19 06/21/19 06/20/19 History Lisinopril [Zestril TAB] 10 mg PO QDAY 06/21/19 06/21/19 06/20/19 History OLANZapine [Zyprexa] 15 mg PO HS 06/21/19 06/21/19 06/20/19 History OXcarbazepine [Trileptal] 1,200 mg PO Q12H 06/21/19 06/21/19 06/20/19 History Topiramate [Topamax] 200 mg PO BID 06/21/19 06/21/19 06/20/19 History lamoTRIgine [LaMICtal] 200 mg PO BID 06/21/19 06/21/19 06/20/19 History metFORMIN [Glucophage] 500 mg PO BIDWM 06/21/19 06/21/19 06/20/19 History Active Meds: Active Medications Acetaminophen (Tylenol) 650 mg PO Q4H PRN PRN Reason: Pain, Mild (1-3), fever>100.5 Atorvastatin Calcium (Lipitor) 40 mg PO QHS [facility] Last Admin: 06/22/19 21:50 Dose: 40 mg Documented by: Clopidogrel Bisulfate (Plavix) 75 mg PO QDAY [facility] Last Admin: 06/23/19 09:34 Dose: 75 mg Documented by: Diphenhydramine HCl (Benadryl) 25 mg IV Q6H PRN PRN Reason: Itching Last Admin: 06/22/19 21:51 Dose: 25 mg Documented by: Enoxaparin Sodium (Lovenox) 40 mg SUB-Q QDAY@1000 [facility] Last Admin: 06/23/19 09:36 Dose: 40 mg Documented by: Hydralazine HCl (Apresoline) 10 mg IV Q4H PRN PRN Reason: Blood Pressure Insulin Glargine (Lantus) 18 units SUB-Q QPM [facility] Last Admin: 06/22/19 18:58 Dose: 18 units Documented by: Insulin Human Lispro (Humalog) 0 unit SUB-Q [facility]; Protocol Last Admin: 06/23/19 09:31 Dose: 3 unit Documented by: Lacosamide (Vimpat) 200 mg PO Q12HR [facility] Last Admin: 06/23/19 09:34 Dose: 200 mg Documented by: Lamotrigine (Lamictal) 200 mg PO BID [facility] Last Admin: 06/23/19 09:34 Dose: 200 mg Documented by: Lisinopril (Zestril) 10 mg PO QDAY [facility] Last Admin: 06/23/19 09:35 Dose: 10 mg Documented by: Metformin HCl (Glucophage) 500 mg PO BIDDIAB [facility] Last Admin: 06/23/19 09:34 Dose: 500 mg Documented by: Olanzapine (Zyprexa) 15 mg PO QHS [facility] Last Admin: 06/22/19 21:51 Dose: 15 mg Documented by: Oxcarbazepine (Trileptal) 1,200 mg PO BID [facility] Last Admin: 06/23/19 09:34 Dose: 1,200 mg Documented by: Sodium Chloride (Sodium Chloride Flush Syringe 10 Ml) 10 ml IV PRN PRN PRN Reason: LINE FLUSH Topiramate (Topamax) 200 mg PO BID [facility] Last Admin: 06/23/19 09:35 Dose: 200 mg Documented by: Past psychiatric history - Past Medical History Past Medical History: seizures Past Surgical History: Other (Deep Brain Stimulator ) - past Psychiatric treatment and history psychiatric treatment history: Denies a psy hx and a fam psy hx. - Social History Social history: lives with family Mental Status Exam - Vital signs Last Vital Signs Temp 98.1 F 06/23/19 05:31 Pulse 81 06/23/19 05:31 Resp 22 06/23/19 05:31 BP 199/104 06/23/19 05:31 Pulse Ox 98 06/23/19 05:31 - Exam Narrative exam: MSE: Appearance: lethargic Behavior: poor Speech: soft, muffled Mood: neutral Affect: flat Thought Process: unable to assess Thought Content: unable to assess Motor Activity: bed ridden Cognition: A/Ox 1 Insight: poor Judgment: poor + Results Result Diagrams: 06/21/19 10:02 06/21/19 10:02 Abnormal lab results 06/22/19 06/22/19 06/22/19 Range/Units 13:07 14:28 17:08 POC Glucose 148 H 163 H (70-105) LDL Cholesterol Direct 46 L (50-130) mg/dL 06/22/19 06/23/19 06/23/19 Range/Units 23:01 07:57 11:23 POC Glucose 115 H 208 H 172 H (70-105) LDL Cholesterol Direct (50-130) mg/dL All other labs normal. Assessment and Plan Assessment and plan: Impression: Adjustment DO. Today the patient was confused today, lethargic difficult to engage. Neuro to be notified following the patient. DDx: MDD Recommendation/Plan: Will follow up with the patient in 24 hours. Dispo: The patient can follow up with [facility] outpatient psy services (therapy). Will staff with Dr Earl De La O. Medications and Allergies Allergies Allergy/AdvReac Type Severity Reaction Status Date / Time aspirin Allergy Unknown Verified 11/09/18 15:09 Home Medications Medication Instructions Recorded Confirmed Last Taken Type Atorvastatin [Lipitor Tab] 40 mg PO QHS 06/21/19 06/21/19 06/20/19 History Insulin Glargine [Lantus VIAL] 18 units SUB-Q QPM 06/21/19 06/21/19 Unknown History Lacosamide [Vimpat] 200 mg PO BID 06/21/19 06/21/19 06/20/19 History Lisinopril [Zestril TAB] 10 mg PO QDAY 06/21/19 06/21/19 06/20/19 History OLANZapine [Zyprexa] 15 mg PO HS 06/21/19 06/21/19 06/20/19 History OXcarbazepine [Trileptal] 1,200 mg PO Q12H 06/21/19 06/21/19 06/20/19 History Topiramate [Topamax] 200 mg PO BID 06/21/19 06/21/19 06/20/19 History lamoTRIgine [LaMICtal] 200 mg PO BID 06/21/19 06/21/19 06/20/19 History metFORMIN [Glucophage] 500 mg PO BIDWM 06/21/19 06/21/19 06/20/19 History Active Meds: Active Medications Acetaminophen (Tylenol) 650 mg PO Q4H PRN PRN Reason: Pain, Mild (1-3), fever>100.5 Atorvastatin Calcium (Lipitor) 40 mg PO QHS [facility] Last Admin: 06/24/19 22:04 Dose: 40 mg Documented by: Clopidogrel Bisulfate (Plavix) 75 mg PO QDAY [facility] Last Admin: 06/25/19 09:38 Dose: 75 mg Documented by: Diphenhydramine HCl (Benadryl) 25 mg IV Q6H PRN PRN Reason: Itching Last Admin: 06/22/19 21:51 Dose: 25 mg Documented by: Enoxaparin Sodium (Lovenox) 40 mg SUB-Q QDAY@1000 [facility] Last Admin: 06/25/19 09:37 Dose: 40 mg Documented by: Hydralazine HCl (Apresoline) 10 mg IV Q4H PRN PRN Reason: Blood Pressure Last Admin: 06/23/19 19:41 Dose: 10 mg Documented by: Insulin Glargine (Lantus) 18 units SUB-Q QPM [facility] Last Admin: 06/24/19 17:35 Dose: Not Given Documented by: Insulin Human Lispro (Humalog) 0 unit SUB-Q [facility]; Protocol Last Admin: 06/25/19 09:15 Dose: Not Given Documented by: Lacosamide (Vimpat) 200 mg PO Q12HR [facility] Last Admin: 06/25/19 09:37 Dose: 200 mg Documented by: Lamotrigine (Lamictal) 200 mg PO BID [facility] Last Admin: 06/25/19 09:37 Dose: 200 mg Documented by: Lisinopril (Zestril) 10 mg PO QDAY [facility] Last Admin: 06/25/19 09:36 Dose: 10 mg Documented by: Lorazepam (Ativan) 1 mg IV Q4HR PRN PRN Reason: Seizures Last Admin: 06/25/19 04:06 Dose: 1 mg Documented by: Oxcarbazepine (Trileptal) 1,200 mg PO BID [facility] Last Admin: 06/25/19 09:36 Dose: 1,200 mg Documented by: Sodium Chloride (Sodium Chloride Flush Syringe 10 Ml) 10 ml IV PRN PRN PRN Reason: LINE FLUSH Topiramate (Topamax) 200 mg PO BID [facility] Last Admin: 06/25/19 09:37 Dose: 200 mg Documented by: Mental Status Exam - Vital signs Last Vital Signs Temp 97.3 F L 06/25/19 11:37 Pulse 98 H 06/25/19 11:37 Resp 16 06/25/19 11:37 BP 143/80 06/25/19 11:37 Pulse Ox 99 06/25/19 11:37 Results Result Diagrams: 06/23/19 16:25 06/23/19 16:24 Abnormal lab results 06/24/19 06/24/19 Range/Units 16:22 21:23 POC Glucose 161 H 156 H (70-105) All other labs normal.
[2019-06-25] MEDS: LANTUS SUB-Q SCH (19:45)
[2019-06-26 04:51] LABS: Hematocrit 39.7 % (35.5-45.6); Hemoglobin 13.3 gm/dl (11.8-15.2); Mean Corpuscular HGB Conc 34 % (32-34); Mean Corpuscular Volume 83 fl (84-94); Platelet Count 263 K/mm3 (140-440); Red Blood Count 4.76 M/mm3 (3.65-5.03); Red Cell Distribution Width 15.3 % (13.2-15.2)
[2019-06-26 05:13] LABS: BUN/Creatinine Ratio 15; Blood Urea Nitrogen 18 mg/dL (9-20); Calcium 9.3 mg/dL (8.4-10.2); Hemolysis Index 1
[2019-06-26] MEDS: ATIVAN IV PRN ×2 (06:25→12:58)
[2019-06-26] MEDS: HumaLOG SUB-Q SCH ×4 (08:36→23:16)
[2019-06-26] MEDS: TRILEPTAL PO SCH ×2 (10:24→23:14)
[2019-06-26] MEDS: PLAVIX PO SCH (10:24)
[2019-06-26] MEDS: LaMICtal PO SCH ×2 (10:24→23:15)
[2019-06-26] MEDS: ZESTRIL PO SCH (10:24)
[2019-06-26] MEDS: VIMPAT PO SCH ×2 (10:30→23:14)
[2019-06-26] MEDS: TOPAMAX PO SCH ×2 (10:31→23:15)
[2019-06-26] MEDS: LOVENOX SUB-Q SCH (10:31)
[2019-06-26] MEDS: APRESOLINE IV PRN (10:57)
--- NOTE | 2019-06-26 11:03 | Progress Note ---
Assessment and Plan Assessment and plan: Patient is a 53 yo AA man with a history of refractory seizure disorder with RNS (Responsive Neurostimulation System) brain stimulator followed by [facility] Epileptic clinic on 5 differ, HTN, HLD and DM type 2 who presented with unsteady gait. -Unsteady gait/ATaxia, sz meds vs CVA vs other: Neurology is following, unable to do MRI because of brain stimulator, treat with asa and statin. -Acute encephalopathy: consulted Mental health, await call back from [place] Neurologist to establish mental health baseline. -Suspected Cerebellar Acute Stroke: trying to get to [place], he has a brain stimulation, unable to turn off here -Type 2 DM: ada, ssi, accuchecks -Dyslipidemia: statin -Hypertension: low salt diet -Psychosis, post-ictal psychosis DVT ppx 06/23/19: I called [place] and spoke Dr. 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 he is on 5 different Anti-epileptics and Epileptic team was suppose to call me back per Dr. Rose, to see if the brain stimulator is MRI compatible but they did not 06/24/19: Trying to get patient transferred to [place] because that is where he usually goes. I spoke with Neurology, Dr. Rose and Epileptic team were suppose to call me back but did not. I reached out again today to transfer patient and spoke with Maggie. Await call back==> no beds available per Dr. Sexton. Patient had a seizure and treated with IV ativan 06/25/19: I called [place] transfer gorman, initially spoke with Nancy Serrano again, no beds still but she will reach out to Dr. Sexton again and call me back==>unable to accept because no beds. 06/26/19: code MET called due to blank stare unresponsive seizure episode following by post-ictal state. I called 1051 am [facility] Transfer center @ [phone], I spoke with Abdon. They are on over-saturation medsurg/ER/ICU until 3pm today. Patient really needs to go to [facility] because they manage the RNS and he needs MRI for cerebellar evaluation due the ataxia. He will call me back but they have no beds. Next at 1058, I called [place] transfer center at [phone], I spoke with Chrissy, she will call me back after she receive patient's face sheet. Next I called [facility] at [phone], no answer at 1103 am CCT 35 minutes History Interval history: Patient was seen and examined. Follow-up on current diagnosis of CVA. Today is very confused, disoriented and agitated. He had seizure yesterday. Treat with IV ativan Hospitalist Physical - Physical exam Narrative exam: Gen: WDWN, NAD, Awake, Alert, Orientated HEENT: NCAT, EOMI, PERRL, OP Clear Neck: supple, no adenopathy, no thyromegaly, no JVD CVS/Heart: RRR, normal S1S2, pulses present bilaterally Chest/Lungs: CTA B, Symmetrical chest expansion, good air entry bilaterally GI/Abdomen: soft, NTND, good bowel sounds, no guarding or rebound /Bladder: no suprapubic tenderness, no CVA or paraspinal tenderness Extermity/Skin: no c/c/e, no obvious rash MSK: FROM x 4 Neuro: CN 2-12 grossly intact, no new focal deficits Psych: calm - Constitutional Vitals: Temp Pulse Resp BP Pulse Ox 98.0 F 110 H 16 179/100 96 06/26/19 03:59 06/26/19 10:24 06/26/19 03:59 06/26/19 10:24 06/26/19 03:59 Results - Labs CBC & Chem 7: 06/26/19 04:26 06/26/19 04:26 Labs: Laboratory Last Values WBC 10.3 K/mm3 (4.5-11.0) 06/26/19 04:26 RBC 4.76 M/mm3 (3.65-5.03) 06/26/19 04:26 Hgb 13.3 gm/dl (11.8-15.2) 06/26/19 04:26 Hct 39.7 % (35.5-45.6) 06/26/19 04:26 MCV 83 fl (84-94) L 06/26/19 04:26 MCH 28 pg (28-32) 06/26/19 04:26 MCHC 34 % (32-34) 06/26/19 04:26 RDW 15.3 % (13.2-15.2) H 06/26/19 04:26 Plt Count 263 K/mm3 (140-440) 06/26/19 04:26 Lymph % (Auto) 28.6 % (13.4-35.0) 06/21/19 10:02 Swain % (Auto) 5.9 % (0.0-7.3) 06/21/19 10:02 Eos % (Auto) 0.5 % (0.0-4.3) 06/21/19 10:02 Baso % (Auto) 1.3 % (0.0-1.8) 06/21/19 10:02 Lymph # 2.3 K/mm3 (1.2-5.4) 06/21/19 10:02 Swain # 0.5 K/mm3 (0.0-0.8) 06/21/19 10:02 Eos # 0.0 K/mm3 (0.0-0.4) 06/21/19 10:02 Baso # 0.1 K/mm3 (0.0-0.1) 06/21/19 10:02 Seg Neutrophils % 63.7 % (40.0-70.0) 06/21/19 10:02 Seg Neutrophils # 5.0 K/mm3 (1.8-7.7) 06/21/19 10:02 PT 12.2 Sec. (12.2-14.9) 06/21/19 10:02 INR 0.93 (0.87-1.13) 06/21/19 10:02 Sodium 146 mmol/L (137-145) H D 06/26/19 04:26 Potassium 3.8 mmol/L (3.6-5.0) 06/26/19 04:26 Chloride 107.4 mmol/L (98-107) H 06/26/19 04:26 Carbon Dioxide 18 mmol/L (22-30) L 06/26/19 04:26 Anion Gap 24 mmol/L 06/26/19 04:26 BUN 18 mg/dL (9-20) 06/26/19 04:26 Creatinine 1.2 mg/dL (0.8-1.5) 06/26/19 04:26 Estimated GFR > 60 ml/min 06/26/19 04:26 BUN/Creatinine Ratio 15 % 06/26/19 04:26 Glucose 141 mg/dL (75-100) H 06/26/19 04:26 POC Glucose 149 (70-105) H 06/26/19 08:11 Calcium 9.3 mg/dL (8.4-10.2) 06/26/19 04:26 Magnesium 1.40 mg/dL (1.7-2.3) L 06/21/19 Unknown Total Bilirubin 0.40 mg/dL (0.1-1.2) 06/21/19 10:02 AST 10 units/L (5-40) 06/21/19 10:02 ALT 7 units/L (7-56) 06/21/19 10:02 Alkaline Phosphatase 106 units/L (35-129) 06/21/19 10:02 Ammonia 48.0 umol/L (25-60) 06/21/19 11:44 Total Creatine Kinase 206 units/L (55-170) H 06/21/19 Unknown Troponin T < 0.010 ng/mL (0.00-0.029) 06/21/19 10:02 Total Protein 7.6 g/dL (6.3-8.2) 06/21/19 10:02 Albumin 4.9 g/dL (3.9-5) 06/21/19 10:02 Albumin/Globulin Ratio 1.8 % 06/21/19 10:02 Triglycerides 114 mg/dL (2-149) 06/22/19 14:28 Cholesterol 104 mg/dL (50-199) 06/22/19 14:28 LDL Cholesterol Direct 46 mg/dL (50-130) L 06/22/19 14:28 HDL Cholesterol 41 mg/dL (40-59) 06/22/19 14:28 Cholesterol/HDL Ratio 2.53 % 06/22/19 14:28 Vitamin B12 525.8 pg/mL (211-911) 06/21/19 Unknown Folate 12.13 ng/mL (7.3-26.0) 06/21/19 Unknown TSH 0.753 mlU/mL (0.270-4.200) 06/21/19 Unknown Salicylates < 0.3 mg/dL (2.8-20.0) L 06/21/19 Unknown Acetaminophen < 5.0 ug/mL (10.0-30.0) L 06/21/19 Unknown Plasma/Serum Alcohol < 0.01 % (0-0.07) 06/21/19 Unknown Active Medications - Current Medications Current Medications: Generic Name Dose Route Start Last Admin Trade Name Freq PRN Reason Stop Dose Admin Acetaminophen 650 mg 06/21/19 23:58 Tylenol PO Q4H PRN Pain, Mild (1-3), fever>100.5 Atorvastatin Calcium 40 mg 06/21/19 22:00 06/25/19 22:32 Lipitor PO 40 mg QHS [facility] Administration Clopidogrel Bisulfate 75 mg 06/23/19 10:00 06/26/19 10:24 Plavix PO 75 mg QDAY [facility] Administration Diphenhydramine HCl 25 mg 06/21/19 21:09 06/22/19 21:51 Benadryl IV 25 mg Q6H PRN Administration Itching Enoxaparin Sodium 40 mg 06/22/19 10:00 06/26/19 10:31 Lovenox SUB-Q 40 mg QDAY@1000 [facility] Administration Hydralazine HCl 10 mg 06/23/19 12:00 06/23/19 19:41 Apresoline IV 10 mg Q4H PRN Administration Blood Pressure Insulin Glargine 18 units 06/22/19 18:00 06/25/19 19:45 Lantus SUB-Q Not Given QPM [facility] Insulin Human Lispro 0 unit 06/21/19 22:00 06/26/19 08:36 Humalog SUB-Q Not Given ACHS [facility] Protocol Lacosamide 200 mg 06/21/19 22:00 06/26/19 10:30 Vimpat PO 200 mg Q12HR [facility] Administration Lamotrigine 200 mg 06/21/19 22:00 06/26/19 10:24 Lamictal PO 200 mg BID [facility] Administration Lisinopril 10 mg 06/21/19 20:00 06/26/19 10:24 Zestril PO 10 mg QDAY [facility] Administration Lorazepam 1 mg 06/24/19 16:37 06/26/19 06:25 Ativan IV 1 mg Q4HR PRN Administration Seizures Oxcarbazepine 1,200 mg 06/21/19 22:00 06/26/19 10:24 Trileptal PO 1,200 mg BID [facility] Administration Sodium Chloride 10 ml 06/21/19 19:55 Sodium Chloride Flush Syringe 10 Ml IV PRN PRN LINE FLUSH Topiramate 200 mg 06/21/19 22:00 06/26/19 10:31 Topamax PO 200 mg BID [facility] Administration
--- NOTE | 2019-06-26 11:52 | Discharge Summary ---
Providers - Providers Date of Admission: 06/21/19 14:16 Attending physician: EDUARDO STEINBERG 06/21/19 Consult to Physician [CONS] Routine Comment: Consulting Provider: KELLY ROWE Physician Instructions: Reason For Exam: ataxia 06/21/19 19:55 Occupational Therapy Evaluate and Treat [CONS] Routine Comment: Reason For Exam: Neuro deficits Physical Therapy Evaluation and Treat [CONS] Routine Comment: Reason For Exam: Neuro deficits 06/22/19 19:14 Consult to Mental Health [CONS] Urgent Reason For Exam: psych Place consult to:: training engineer lead radiation therapist Notified:: awaiting call back Comment:: fax to [phone] 06/23/19 11:13 Consult to Mental Health [CONS] Urgent Reason For Exam: psych/violent episode Place consult to:: training engineer lead radiation therapist Notified:: awaiting call back Comment:: fax to [phone] Primary care physician: [facility] LISETTE CARBALLO MD Hospitalization Condition: Fair Hospital course: Patient is a 53 yo AA man with a history of refractory seizure disorder with RNS (Responsive Neurostimulation System) brain stimulator followed by [facility] Epileptic clinic on 5 differ, HTN, HLD and DM type 2 who presented with unsteady gait. -Unsteady gait/ATaxia, sz meds vs CVA vs other: Neurology is following, unable to do MRI because of brain stimulator, treat with asa and statin. -Acute encephalopathy: consulted Mental health, await call back from [place] Neurologist to establish mental health baseline. -Suspected Cerebellar Acute Stroke: trying to get to [place], he has a brain stimulation, unable to turn off here -Type 2 DM: ada, ssi, accuchecks -Dyslipidemia: statin -Hypertension: low salt diet -Psychosis, post-ictal psychosis DVT ppx 06/23/19: I called [place] and spoke Dr. 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 he is on 5 different Anti-epileptics and Epileptic team was suppose to call me back per Dr. Rose, to see if the brain stimulator is MRI compatible but they did not 06/24/19: Trying to get patient transferred to [place] because that is where he usually goes. I spoke with Neurology, Dr. Rose and Epileptic team were suppose to call me back but did not. I reached out again today to transfer patient and spoke with Maggie. Await call back==> no beds available per Dr. Sexton. Patient had a seizure and treated with IV ativan 06/25/19: I called [facility], initially spoke with Nancy then Maggie again, no beds still but she will reach out to Dr. Sexton again and call me back==>unable to accept because no beds. 06/26/19: code MET called due to blank stare unresponsive seizure episode following by post-ictal state. I called 1051 am [facility] Transfer center @ [phone], I spoke with Abdon. They are on over-saturation medsurg/ER/ICU until 3pm today. Patient really needs to go to [facility] because they manage the RNS and he needs MRI for cerebellar evaluation due the ataxia. He will call me back but they have no beds. Next at 1058, I called [place] [facility] [place] at [phone], I spoke with Chrissy, she will call me back after she receive patient's face sheet. Next I called [facility] at [phone], no answer at [address] Donell Floyd called back and will accept to [facility]. He is able to review [place] records. He needs to be there by 5pm if not then AM discharge per Dr. Floyd Disposition: DC/TX-70 ANOTHER TYPE HLTHCARE Time spent for discharge: 37 minutes Core Measure Documentation - Palliative Care Palliative Care/ Comfort Measures: Not Applicable - Core Measures Any of the following diagnoses?: none - VTE Discharge Requirements Deep Vein Thrombosis/Pulmonary Embolism Present on Admission: No Has pt received <5 days of overlap therapy or INR<2.0: No Anticoagulant overlap therapy prescribed at discharge: No Contraindication No Overlap Therapy order at DC: Not Indicated Exam - Physical Exam Narrative exam: Gen: WDWN, NAD, Awake, Alert, Orientated HEENT: NCAT, EOMI, PERRL, OP Clear Neck: supple, no adenopathy, no thyromegaly, no JVD CVS/Heart: RRR, normal S1S2, pulses present bilaterally Chest/Lungs: CTA B, Symmetrical chest expansion, good air entry bilaterally GI/Abdomen: soft, NTND, good bowel sounds, no guarding or rebound /Bladder: no suprapubic tenderness, no CVA or paraspinal tenderness Extermity/Skin: no c/c/e, no obvious rash MSK: FROM x 4 Neuro: CN 2-12 grossly intact, no new focal deficits Psych: calm - Constitutional Vitals: Temp Pulse Resp BP Pulse Ox 98.0 F 109 H 16 179/100 96 06/26/19 03:59 06/26/19 10:57 06/26/19 03:59 06/26/19 10:57 06/26/19 03:59 Plan Activity: up only with assistance, fall precautions, other (seizure precautions) Additional Instructions: continue IV keppra also. Follow up with: [facility] [Outside] - 7 Days
[2019-06-26] MEDS: KEPPRA 1,000 MG in D5W 100 ML IV SCH ×2 (12:53→23:27)
--- NOTE | 2019-06-26 13:19 | Progress Note ---
Subjective - Reason for Consult Consult date: 06/26/19 Reason for consult: Psychiatry - Chief Complaint Chief complaint: "The patient is lethargic" 53 y.o. AA male who presented to the Er for unsteady gait. Psychiatry was consulted to see the patient for behavioral disturbance. Today the patient was lethargic during the assessment. The patient was able to respond to his name. He was not able to answer questions asked of him. Per the staff, a code MET was called because the patient was unresponsive prior to my arrival to his room. No gestures of SI/HI's. Mental Status Exam - Vital signs Last Vital Signs Temp 97.0 F L 06/26/19 09:01 Pulse 109 H 06/26/19 12:01 Resp 16 06/26/19 09:01 BP 179/100 06/26/19 10:57 Pulse Ox 99 06/26/19 09:01 - Exam Narrative exam: Unable to complete the MSE because of the patient's condition. Assessment and Plan Impression: Adjustment DO. Today the patient was calm, but lethargic during the assessment. DDx: MDD Recommendation/Plan: The patient can follow up with outpatient psy services (therapy) once discharged from [facility]. Psy sign off. Dispo: The patient will be transferred to [facility] for ongoing treatment for seizures. Will staff with Dr Earl De La O.
[2019-06-26] MEDS: LANTUS SUB-Q SCH (18:42)
[2019-06-27] MEDS: ATIVAN IV PRN (07:17)
[2019-06-27 08:50] VITALS: BP 156/95
[2019-06-27] MEDS: HumaLOG SUB-Q SCH (09:00)
[2019-06-27 09:23] LABS: Hematocrit 41.4 % (35.5-45.6); Hemoglobin 13.7 gm/dl (11.8-15.2); Mean Corpuscular HGB Conc 33 % (32-34); Mean Corpuscular Volume 84 fl (84-94); Platelet Count 299 K/mm3 (140-440); Red Blood Count 4.93 M/mm3 (3.65-5.03); Red Cell Distribution Width 14.9 % (13.2-15.2)
[2019-06-27 09:34] LABS: BUN/Creatinine Ratio 18; Blood Urea Nitrogen 18 mg/dL (9-20); Calcium 9.6 mg/dL (8.4-10.2); Hemolysis Index 1
== END 2019-06-27 09:45 | disposition short-term general hospital (02) | DRG 65 ==
LOC: ED 08:48 → 3A 14:16
PROVIDERS: ADMIT Internal Medicine; ATTEND Internal Medicine
DX: I63.9 Cerebral infarction, unspecified (principal); G93.40 Encephalopathy, unspecified; R26.0 Ataxic gait; I10 Essential (primary) hypertension; E11.9 Type 2 diabetes mellitus without complications; F43.20 Adjustment disorder, unspecified; E78.5 Hyperlipidemia, unspecified; G40.409 Other generalized epilepsy and epileptic syndromes, not intractable, without status epilepticus; R26.81 Unsteadiness on feet; F29 Unspecified psychosis not due to a substance or known physiological condition; Z88.6 Allergy status to analgesic agent; Z79.899 Other long term (current) drug therapy; Z79.4 Long term (current) use of insulin; Z82.49 Family history of ischemic heart disease and other diseases of the circulatory system
CPT/HCPCS: 36415; 70450; 70496; 70498; 71045; 72125; 80048; 80053; 80061; 80175; 80201; 80320; 82140; 82550; 82607; 82747; 82962; 83735; 84443; 84484; 85025; 85027; 85610; 93005; 93010; 93306; 96374; G0378; A9270-GY; G0480; J0360; J1200; J1650; J1815; J1953; J2060; J3475; J7030; J7040; Q9967

== ENCOUNTER 2019-07-03 22:59 | Emergency (ER) | payer MEDICARE ==
[2019-07-03] MEDS ORDERED: NACL 0.9% 1000 ML 1,000 ML IV ONE (23:32)
[2019-07-03] MEDS ORDERED: KEPPRA 1,000 MG/NS 0.75% 100ML 1,000 MG/100 ML BAG IV ONE (23:33)
--- NOTE | 2019-07-04 00:22 | Cat Scan Report ---
CT ABDOMEN AND PELVIS WITHOUT CONTRAST INDICATION / CLINICAL INFORMATION: Left lower quadrant abdominal pain TECHNIQUE: Axial CT images were obtained through the abdomen and pelvis without IV contrast. All CT scans at [facility] location are performed using CT dose reduction for ALARA by means of automated exposure control. COMPARISON: None available. FINDINGS: LOWER CHEST: No significant abnormality. LIVER: No significant abnormality. GALLBLADDER: No significant abnormality. BILE DUCTS: No significant abnormality. PANCREAS: No significant abnormality. SPLEEN: No significant abnormality. ADRENALS: No significant abnormality. RIGHT KIDNEY and URETER: No significant abnormality. LEFT KIDNEY and URETER: No significant abnormality. STOMACH and SMALL BOWEL: No significant abnormality. COLON: No significant abnormality. APPENDIX: No significant abnormality. PERITONEUM: No free fluid. No free air. No fluid collection. LYMPH NODES: No significant adenopathy. AORTA and ARTERIES: Moderate atherosclerotic disease throughout a nondilated abdominal aorta. IVC and VEINS: No significant abnormality. URINARY BLADDER: No significant abnormality. REPRODUCTIVE ORGANS: No significant abnormality. ADDITIONAL FINDINGS: None. SKELETAL SYSTEM: No significant abnormality. IMPRESSION: Large stool burden identified throughout much of the colon consistent with constipation.. Few colonic diverticula without evidence of diverticulitis. Signer Name: Amaury Carrion MD Signed: 07/04/2019 12:18 AM Workstation Name: [id number]
[2019-07-04 00:43] LABS: Alanine Aminotransferase 40 units/L (7-56); Albumin 4.2 g/dL (3.9-5); BUN/Creatinine Ratio 16; Blood Urea Nitrogen 14 mg/dL (9-20); Calcium 8.5 mg/dL (8.4-10.2); Hemolysis Index 2
[2019-07-04 00:44] LABS: Bilirubin,Direct < 0.2 mg/dL (0-0.2)
[2019-07-04 01:11] LABS: Basophils % (Auto) 0.5 % (0.0-1.8); Eosinophils # (Auto) 0.1 K/mm3 (0.0-0.4); Eosinophils % (Auto) 1.3 % (0.0-4.3); Hematocrit 35.7 % (35.5-45.6); Hemoglobin 11.9 gm/dl (11.8-15.2); Lymphocytes # (Auto) 1.8 K/mm3 (1.2-5.4); Lymphocytes % (Auto) 23.6 % (13.4-35.0); Mean Corpuscular HGB Conc 34 % (32-34); Mean Corpuscular Volume 84 fl (84-94); Monocytes # (Auto) 0.9 K/mm3 (0.0-0.8); Monocytes % (Auto) 12.4 % (0.0-7.3); Platelet Count 356 K/mm3 (140-440); Red Blood Count 4.27 M/mm3 (3.65-5.03); Red Cell Distribution Width 14.8 % (13.2-15.2)
[2019-07-04] MEDS ORDERED: MORPHINE IV ONE (03:39)
[2019-07-04] MEDS ORDERED: CEPHULAC PO ONE (03:39)
[2019-07-04] MEDS ORDERED: ZOFRAN IV ONE (03:39)
[2019-07-04] MEDS ORDERED: NACL 0.9% 1000 ML 1,000 ML IV ONE (03:39)
--- NOTE | 2019-07-04 04:13 | Emergency Department Report ---
ED General Adult HPI - General Chief complaint: Altered Mental Status Stated complaint: AMS Time Seen by Provider: 07/03/19 23:31 Source: patient, EMS Mode of arrival: Stretcher Limitations: No Limitations - History of Present Illness Initial comments: Mr. Harvey is a 52-year-old male with history of hypertension, epilepsy, diabetes mellitus who presents with possible seizure. His called EMS because he was confused. She told paramedics that he likely had a seizure. Mr. Harvey explains that he has left lower quadrant pain. Gradual onset for several days. Just today he was diagnosed discharge from [facility] on [facility] for acute encephalopathy and refractory epilepsy. He has brain stimulator in place for epilepsy. Elevated glucose detected by EMS. Current medications include Colace Nexium Vimpat Lamictal Keppra Lisinopril Metformin MVI Zyprexa Trileptal Topamax -: Gradual, days(s) (3), This evening Location: abdomen Severity scale (0 -10): 5 Quality: aching Consistency: constant Improves with: none Worsens with: none Associated Symptoms: confusion (possible seizure) - Related Data Home Medications Medication Instructions Recorded Confirmed Last Taken Atorvastatin [Lipitor] 40 mg PO QHS 06/21/19 06/21/19 06/20/19 Insulin Glargine [Lantus VIAL] 18 units SUB-Q QPM 06/21/19 06/21/19 Unknown Lacosamide [Vimpat] 200 mg PO BID 06/21/19 06/21/19 06/20/19 Lisinopril [Zestril TAB] 10 mg PO QDAY 06/21/19 06/21/19 06/20/19 OLANZapine [Zyprexa] 15 mg PO HS 06/21/19 06/21/19 06/20/19 OXcarbazepine [Trileptal] 1,200 mg PO Q12H 06/21/19 06/21/19 06/20/19 Topiramate [Topamax] 200 mg PO BID 06/21/19 06/21/19 06/20/19 lamoTRIgine [LaMICtal] 200 mg PO BID 06/21/19 06/21/19 06/20/19 metFORMIN [Glucophage] 500 mg PO BIDWM 06/21/19 06/21/19 06/20/19 Previous Rx's Medication Instructions Recorded Last Taken Type Polyethylene Glycol 3350 [Miralax] 1 cap PO DAILY 3 Days #3 dose 07/04/19 Unknown Rx Allergies Allergy/AdvReac Type Severity Reaction Status Date / Time aspirin Allergy Unknown Verified 11/09/18 15:09 ED Review of Systems ROS: Stated complaint: AMS Other details as noted in HPI Comment: All other systems reviewed and negative Constitutional: denies: fever, malaise Gastrointestinal: abdominal pain Psychiatric: other (confusion after possible seizure) ED Past Medical Hx - Past Medical History Previous Medical History?: Yes Hx Hypertension: Yes Hx Diabetes: Yes Hx Seizures: Yes (epilepsy) Additional medical history: high cholesterol, encephalapathy - Surgical History 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 - Social History Smoking Status: Never Smoker - Medications Home Medications: Home Medications Medication Instructions Recorded Confirmed Last Taken Type Atorvastatin [Lipitor] 40 mg PO QHS 06/21/19 06/21/19 06/20/19 History Insulin Glargine [Lantus VIAL] 18 units SUB-Q QPM 06/21/19 06/21/19 Unknown History Lacosamide [Vimpat] 200 mg PO BID 06/21/19 06/21/19 06/20/19 History Lisinopril [Zestril TAB] 10 mg PO QDAY 06/21/19 06/21/19 06/20/19 History OLANZapine [Zyprexa] 15 mg PO HS 06/21/19 06/21/19 06/20/19 History OXcarbazepine [Trileptal] 1,200 mg PO Q12H 06/21/19 06/21/19 06/20/19 History Topiramate [Topamax] 200 mg PO BID 06/21/19 06/21/19 06/20/19 History lamoTRIgine [LaMICtal] 200 mg PO BID 06/21/19 06/21/19 06/20/19 History metFORMIN [Glucophage] 500 mg PO BIDWM 06/21/19 06/21/19 06/20/19 History Polyethylene Glycol 3350 [Miralax] 1 cap PO DAILY 3 Days #3 dose 07/04/19 Unknown Rx ED Physical Exam - General Limitations: No Limitations General appearance: alert, in no apparent distress, other (awake alert able to give a full history) - Head Head exam: Present: atraumatic, normocephalic - Eye Eye exam: Present: normal appearance. Absent: scleral icterus, conjunctival injection - ENT ENT exam: Present: mucous membranes moist - Neck Neck exam: Present: normal inspection, full ROM - Respiratory Respiratory exam: Present: normal lung sounds bilaterally. Absent: respiratory distress - Cardiovascular Cardiovascular Exam: Present: normal rhythm, tachycardia, normal heart sounds. Absent: systolic murmur, diastolic murmur, rubs, gallop - GI/Abdominal GI/Abdominal exam: Present: soft. Absent: distended, tenderness, guarding, rebound - Rectal Rectal exam: Present: deferred - Extremities Exam Extremities exam: Present: normal inspection - Neurological Exam Neurological exam: Present: alert, oriented X3 - Psychiatric Psychiatric exam: Present: normal affect, normal mood - Skin Skin exam: Present: warm, dry, intact, normal color. Absent: rash ED Course Vital Signs 07/03/19 07/03/19 07/03/19 23:23 23:29 23:30 Temperature 98.5 F Pulse Rate 120 H Respiratory 16 16 Rate Blood Pressure 182/100 182/100 O2 Sat by Pulse 99 100 Oximetry 07/04/19 07/04/19 07/04/19 00:04 01:00 02:00 Temperature Pulse Rate Respiratory Rate Blood Pressure 182/100 110/75 103/67 O2 Sat by Pulse 100 98 Oximetry 07/04/19 07/04/19 07/04/19 02:48 03:00 04:06 Temperature Pulse Rate 119 H Respiratory Rate Blood Pressure 107/69 107/69 O2 Sat by Pulse 99 100 Oximetry 07/04/19 07/04/19 05:00 05:20 Temperature Pulse Rate 113 H Respiratory Rate Blood Pressure 105/78 O2 Sat by Pulse 99 Oximetry ED Medical Decision Making - Lab Data Result diagrams: 07/03/19 23:37 07/03/19 23:37 Laboratory Results - last 24 hr 07/03/19 07/03/19 23:37 23:37 WBC 7.6 RBC 4.27 Hgb 11.9 Hct 35.7 MCV 84 MCH 28 MCHC 34 RDW 14.8 Plt Count 356 Lymph % (Auto) 23.6 [place] % (Auto) 12.4 H Eos % (Auto) 1.3 Baso % (Auto) 0.5 Lymph # 1.8 [place] # 0.9 H Eos # 0.1 Baso # 0.0 Seg Neutrophils % 62.2 Seg Neutrophils # 4.7 Sodium 138 Potassium 4.1 Chloride 105.4 Carbon Dioxide 16 L Anion Gap 21 BUN 14 Creatinine 0.9 Estimated GFR > 60 BUN/Creatinine Ratio 16 Glucose 451 H Calcium 8.5 Total Bilirubin < 0.20 Direct Bilirubin < 0.2 Indirect Bilirubin 0.0 AST 58 H ALT 40 Alkaline Phosphatase 136 H Total Protein 7.5 Albumin 4.2 Albumin/Globulin Ratio 1.3 Lipase 74 H - EKG Data 07/04/19 04:27 EKG obtained 0424 Sinus tachycardia rate 110 bpm nl axis nl intervals prolonged [place] interval no ST elevation nonspecific T wave pattern +LVH - Radiology Data Radiology results: report reviewed CT angio negative for PE CT a/p constipation - Medical Decision Making Mr. Harvey presents with confusion and possible seizure. He has had several days of abdominal pain. CT reveals constipation. I do not detect peritonitis. Normal WBC. No indication of acute inflammatory intra-abdominal process. Normal mentation. However, has had persistent tachycardia which were present on recent hospitalization to this facility last week. CTA ruled out PE. TSH normal. Acute hyperglycemia with mild metabolic acidosis, anion gap 21. Treated with IVF and IV insulin. Venous pH 7.33 serum and urine ketones are negative Dc'd home miralax prescription provided Critical care attestation.: If time is entered above; I have spent that time in minutes in the direct care of this critically ill patient, excluding procedure time. ED Disposition Clinical Impression: Hx of encephalopathy, Seizure disorder, Acute hyperglycemia, Constipation Disposition: DC-01 TO HOME OR SELFCARE Is pt being admited?: No Does the pt Need Aspirin: No Condition: Stable Instructions: Constipation (ED), Epilepsy (ED), Diabetic Hyperglycemia (ED) Prescriptions: Polyethylene Glycol 3350 [Miralax] 1 cap PO DAILY 3 Days #3 dose Referrals: PRIMARY CARE, [Primary Care Provider] - 3-5 Days
--- NOTE | 2019-07-04 04:22 | Cat Scan Report ---
CTA CHEST WITH IV CONTRAST INDICATION: MAIN: tachycardia, recent hospitalization. 100 ML OMNIPAQUE 350. Acute onset chest pain with dyspnea. TECHNIQUE: Axial CT images were obtained through the chest after injection of 100 mL IV contrast. 3 plane MIP re constructions were produced. All CT scans at this location are performed using CT dose reduction for ALARA by means of automated exposure control. COMPARISON: None available. FINDINGS: PULMONARY ARTERIES: No pulmonary emboli. AORTA AND ARTERIES: No acute abnormality. MEDIASTINUM: No mass, lymphadenopathy or other significant abnormality. The heart is normal in size w ithout a pericardial effusion. The trachea and main bronchi are patent and normal in caliber. LUNGS: No suspicious consolidation, nodule or mass. No pneumothorax or pleural effusion. ADDITIONAL FINDINGS: None. UPPER ABDOMEN: No acute findings. BONES: No significant osseous abnormality. IMPRESSION: 1. No CT evidence for pulmonary embolism. 2. No acute findings. Signer Name: Amaury Carrion MD Signed: 07/04/2019 4:17 AM Workstation Name: [id number]
[2019-07-04] MEDS ORDERED: HumuLIN R IV ONE (04:38)
[2019-07-04 05:54] LABS: Bilirubin,Urine NEG (Negative); Blood,Urine NEG (Negative); Color,Urine Straw (Yellow); Protein,Urine <15 mg/dL mg/dL (Negative); Urobilinogen,Urine < 2.0 mg/dL (<2.0)
[2019-07-04 05:56] LABS: WBC,Urine < 1.0 /HPF (0.0-6.0)
[2019-07-04 07:47] VITALS: BP 130/84
== END 2019-07-04 07:29 | disposition home or self-care (01) ==
LOC: ED 22:59
DX: E11.65 Type 2 diabetes mellitus with hyperglycemia (principal); G40.909 Epilepsy, unspecified, not intractable, without status epilepticus; K59.00 Constipation, unspecified; G93.40 Encephalopathy, unspecified; I10 Essential (primary) hypertension; E78.00 Pure hypercholesterolemia, unspecified; Z79.899 Other long term (current) drug therapy; Z88.6 Allergy status to analgesic agent
CPT/HCPCS: 36415; 71275; 74176; 80048; 80076; 81001; 82010; 82805; 83690; 84443; 85025; 93005; 93010; 96361; 96365; 96375; 99285; J1953; J2405; J7030; Q9967; J1815; J2270

== ENCOUNTER 2019-07-26 06:58 | Inpatient (IN) | payer MEDICARE ==
--- NOTE | 2019-07-26 07:17 | Emergency Department Report ---
ED Seizure HPI - General Stated Complaint: SEIZURE Time Seen by Provider: 07/26/19 07:14 Source: patient, EMS Mode of arrival: Stretcher Limitations: No Limitations - History of Present Illness Initial Comments: is a 53-year-old male that presents emergency room with complaints of seizure activity. Patient states she is compliant with his medications. Patient denies missed doses. Patient denies complaints at this time. Per EMS patient was postictal. Patient is currently answering all questions appropriately. Patient states he typically has one seizure per month. Patient states she started had 2 today. MD Complaint: seizure -: Sudden Description of Episode: loss of consciousness, tonic-clonic movement, post-event confusion -: second(s) Witnessed:: Yes Trauma: No Seizure History: known seizure disorder, compliant with medication Place: home Possible Precipitating Event: none Associated Symptoms: denies other symptoms Treatments Prior to Arrival: none - Related Data Home Medications Medication Instructions Recorded Confirmed Last Taken Atorvastatin [Lipitor] 40 mg PO QHS 06/21/19 06/21/19 06/20/19 Insulin Glargine [Lantus VIAL] 18 units SUB-Q QPM 06/21/19 06/21/19 Unknown Lacosamide [Vimpat] 200 mg PO BID 06/21/19 06/21/19 06/20/19 Lisinopril [Zestril TAB] 10 mg PO QDAY 06/21/19 06/21/19 06/20/19 OLANZapine [Zyprexa] 15 mg PO HS 06/21/19 06/21/19 06/20/19 OXcarbazepine [Trileptal] 1,200 mg PO Q12H 06/21/19 06/21/19 06/20/19 Topiramate [Topamax] 200 mg PO BID 06/21/19 06/21/19 06/20/19 lamoTRIgine [LaMICtal] 200 mg PO BID 06/21/19 06/21/19 06/20/19 metFORMIN [Glucophage] 500 mg PO BIDWM 06/21/19 06/21/19 06/20/19 Previous Rx's Medication Instructions Recorded Last Taken Type Polyethylene Glycol 3350 [Miralax] 1 cap PO DAILY 3 Days #3 dose 07/04/19 Unknown Rx Allergies Allergy/AdvReac Type Severity Reaction Status Date / Time aspirin Allergy Unknown Verified 07/26/19 07:22 ED Review of Systems ROS: Stated complaint: SEIZURE Other details as noted in HPI Constitutional: denies: chills, fever Eyes: denies: eye pain, eye discharge, vision change ENT: denies: ear pain, throat pain Respiratory: denies: cough, shortness of breath, wheezing Cardiovascular: denies: chest pain, palpitations Endocrine: no symptoms reported Gastrointestinal: denies: abdominal pain, nausea, diarrhea Genitourinary: denies: urgency, dysuria Musculoskeletal: denies: back pain, joint swelling, arthralgia Skin: denies: rash, lesions Neurological: denies: headache, weakness, paresthesias Psychiatric: denies: anxiety, depression Hematological/Lymphatic: denies: easy bleeding, easy bruising ED Past Medical Hx - Past Medical History Previous Medical History?: Yes Hx Hypertension: Yes Hx Diabetes: Yes Hx Seizures: Yes (epilepsy) Additional medical history: high cholesterol, encephalapathy - Surgical History Past Surgical History?: Yes 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 - Family History Family history: no significant - Social History Smoking Status: Never Smoker Substance Use Type: None - Medications Home Medications: Home Medications Medication Instructions Recorded Confirmed Last Taken Type Atorvastatin [Lipitor] 40 mg PO QHS 06/21/19 06/21/19 06/20/19 History Insulin Glargine [Lantus VIAL] 18 units SUB-Q QPM 06/21/19 06/21/19 Unknown History Lacosamide [Vimpat] 200 mg PO BID 06/21/19 06/21/19 06/20/19 History Lisinopril [Zestril TAB] 10 mg PO QDAY 06/21/19 06/21/19 06/20/19 History OLANZapine [Zyprexa] 15 mg PO HS 06/21/19 06/21/19 06/20/19 History OXcarbazepine [Trileptal] 1,200 mg PO Q12H 06/21/19 06/21/19 06/20/19 History Topiramate [Topamax] 200 mg PO BID 06/21/19 06/21/19 06/20/19 History lamoTRIgine [LaMICtal] 200 mg PO BID 06/21/19 06/21/19 06/20/19 History metFORMIN [Glucophage] 500 mg PO BIDWM 06/21/19 06/21/19 06/20/19 History Polyethylene Glycol 3350 [Miralax] 1 cap PO DAILY 3 Days #3 dose 07/04/19 Unknown Rx ED Physical Exam - General Limitations: No Limitations General appearance: alert, in no apparent distress - Head Head exam: Present: atraumatic, normocephalic - Eye Eye exam: Present: normal appearance, PERRL Pupils: Present: normal accommodation - ENT ENT exam: Present: mucous membranes moist - Neck Neck exam: Present: normal inspection - Respiratory Respiratory exam: Present: normal lung sounds bilaterally. Absent: respiratory distress - Cardiovascular Cardiovascular Exam: Present: regular rate, normal rhythm. Absent: systolic murmur, diastolic murmur, rubs, gallop - GI/Abdominal GI/Abdominal exam: Present: soft, normal bowel sounds - Rectal Rectal exam: Present: deferred - Extremities Exam Extremities exam: Present: normal inspection - Back Exam Back exam: Present: normal inspection - Neurological Exam Neurological exam: Present: alert, oriented X3 - Psychiatric Psychiatric exam: Present: normal affect, normal mood - Skin Skin exam: Present: warm, dry, intact, normal color. Absent: rash ED Course Vital Signs 07/26/19 07/26/19 07/26/19 07:22 08:48 09:59 Temperature 98.7 F 98.4 F Pulse Rate 88 110 H 100 H Respiratory 14 22 16 Rate Blood Pressure 149/88 Blood Pressure 173/98 143/90 [Right] O2 Sat by Pulse 98 100 100 Oximetry 07/26/19 11:00 Temperature Pulse Rate 90 Respiratory 16 Rate Blood Pressure Blood Pressure 158/98 [Right] O2 Sat by Pulse 98 Oximetry - Reevaluation(s) Reevaluation #1: Nurse prior to my attention the patient seizing. I examined the patient patient is having active seizure activity. Patient will be given Keppra and Ativan. 07/26/19 08:50 Reevaluation #2: pt still confused. Patient states she is fatigue. No new seizure activity. 07/26/19 11:01 Reevaluation #3: Patient resting in bed comfortably. Patient's head CT is pending. 07/26/19 11:43 - Consultations Consultation #1: [facility]us consult for admission. Hospitalist admit patient. Bridge orders place. 11/13/19 11:46 ED Medical Decision Making - Lab Data Result diagrams: 07/26/19 08:11 07/26/19 08:11 - Radiology Data Radiology results: report reviewed, image reviewed Head CT negative for acute findings. - Medical Decision Making Patient is a 53-year-old male that presents emergency room with multiple seizures. Patient's labs unremarkable. Patient's head CT negative. Patient had 2 witnessed seizures home and was brought in by EMS. Patient had another seizure in the ER while receiving Keppra. Patient given Ativan to terminate the seizure. Patient was admitted to the hospitalist service for further ev aluation treatment. Patient will require a neurology consult. - Differential Diagnosis seizure. Uncontrolled seizure. Critical Care Time: Yes Critical care time in (mins) excluding proc time.: 35 Critical care attestation.: If time is entered above; I have spent that time in minutes in the direct care of this critically ill patient, excluding procedure time. Critical Care Time: 35 minutes ED Disposition Clinical Impression: Seizure-like activity, Seizure, Status epilepticus Uncontrolled seizures Qualifiers: Convulsion type: unspecified Qualified Code(s): R56.9 - Unspecified convulsions Disposition: 09 OP ADMIT IP TO THIS HOSP Is pt being admited?: Yes Does the pt Need Aspirin: No Condition: Critical Referrals: PRIMARY CARE, [Primary Care Provider] - 3-5 Days Time of Disposition: 11:44
[2019-07-26 08:22] LABS: Hematocrit 42.2 % (35.5-45.6); Hemoglobin 13.7 gm/dl (11.8-15.2); Mean Corpuscular HGB Conc 32 % (32-34); Mean Corpuscular Volume 84 fl (84-94); Platelet Count 230 K/mm3 (140-440); Red Cell Distribution Width 15.3 % (13.2-15.2)
[2019-07-26] MEDS ORDERED: levETIRAcetam 1000 MG/NS 0.75% 1,000 MG/100 ML BAG IV ONE (08:32)
[2019-07-26 08:38] LABS: Alanine Aminotransferase 11 units/L (7-56); Albumin 4.3 g/dL (3.9-5); BUN/Creatinine Ratio 9; Blood Urea Nitrogen 7 mg/dL (9-20); Calcium 9.5 mg/dL (8.4-10.2); Hemolysis Index 23
[2019-07-26] MEDS ORDERED: LORazepam 2 MG/ML VIAL IV ONE (08:44)
[2019-07-26] MEDS ORDERED: LORazepam 2 MG/ML VIAL ONE (08:45)
--- NOTE | 2019-07-26 11:46 | Cat Scan Report ---
. CT HEAD WITHOUT CONTRAST INDICATION : Seizure. TECHNIQUE: Axial imaging performed from the skull apex through the skull base without the use of con trast. Sagittal and coronal reformatted images. All CT scans at this location are performed using C T dose reduction for ALARA by means of automated exposure control. COMPARISON: 06/21/2019. FINDINGS: Parenchyma: No acute intracranial hemorrhage or parenchymal abnormality. Ventricles: Ventricular size appears prominent which is unchanged. Stimulator leads terminating in t he medial temporal regions bilaterally are unchanged. Bones: No acute osseous abnormality. Sinuses: Sinuses and mastoid air cells are clear. Soft tissues: Soft tissues including the orbits appear normal. IMPRESSION: No acute abnormality. No change since 06/21/2019. Signer Name: Garret Staples Jr, MD Signed: 07/26/2019 11:41 AM Workstation Name: [id number]
--- NOTE | 2019-07-26 12:39 | History and Physical Report ---
History of Present Illness Date of admission: 07/26/19 11:45 Chief complaint: I keep having seizures History of present illness: 53 YO Male with Seizure Disorder S/P DBS Placement, DM, HTN, HLD presents to ED for evaluation. Pt states that he is unable to recall the events of this morning, but reports waking up feeling like he had experienced a seizure. Pt reports 2 seizures this morning. Pt subsequently notified EMS and patient transported to [facility]. Pt seen and evaluated in ED and found to have Seizure Disorder with Recurrent seizures. Pt denies medication noncompliance, trauma, fever, chills, CP, palpitations, skin rash, or recent ill contacts. Pt placed in observation status and admitted to medical floor. Prior admission on 06/21/19 reviewed. All listed medication reconciled at time of admission. Past History Past Medical History: other (see hpi) Past Surgical History: Other (Deep Brain Stimulator Placement) Social history: , lives with family Family history: diabetes, hypertension Medications and Allergies Allergies Allergy/AdvReac Type Severity Reaction Status Date / Time aspirin Allergy Unknown Verified 07/26/19 07:22 Home Medications Medication Instructions Recorded Confirmed Last Taken Type Atorvastatin [Lipitor] 40 mg PO QHS 06/21/19 06/21/19 06/20/19 History Insulin Glargine [Lantus VIAL] 18 units SUB-Q QPM 06/21/19 06/21/19 Unknown History Lacosamide [Vimpat] 200 mg PO BID 06/21/19 06/21/19 06/20/19 History Lisinopril [Zestril TAB] 10 mg PO QDAY 06/21/19 06/21/19 06/20/19 History OLANZapine [Zyprexa] 15 mg PO HS 06/21/19 06/21/19 06/20/19 History OXcarbazepine [Trileptal] 1,200 mg PO Q12H 06/21/19 06/21/19 06/20/19 History Topiramate [Topamax] 200 mg PO BID 06/21/19 06/21/19 06/20/19 History lamoTRIgine [LaMICtal] 200 mg PO BID 06/21/19 06/21/19 06/20/19 History metFORMIN [Glucophage] 500 mg PO BIDWM 06/21/19 06/21/19 06/20/19 History Polyethylene Glycol 3350 [Miralax] 1 cap PO DAILY 3 Days #3 dose 07/04/19 Unkn own Rx Review of Systems Constitutional: other (seizures), no weight loss, no weight gain, no fever, no chills Ears, nose, mouth and throat: no ear pain, no ear discharge, no tinnitis, no nose pain, no nasal congestion Cardiovascular: no chest pain, no orthopnea, no palpitations, no edema, no syncope Respiratory: no cough, no cough with sputum, no excessive sputum, no hemoptysis Gastrointestinal: no nausea, no vomiting, no constipation, no change in bowel habits, no coffee ground emesis Genitourinary Male: no hematuria, no flank pain, no discharge, no urinary frequency, no urinary hesitancy Rectal: no pain, no incontinence, no bleeding Musculoskeletal: no neck stiffness, no neck pain, no shooting arm pain, no arm numbness/tingling, no low back pain Integumentary: no rash, no pruritis, no redness, no sores, no wounds Neurological: no paralysis, no weakness, no parathesias, no seizures, no syncope Psychiatric: no anxiety, no memory loss, no change in sleep habits, no insomnia, no hypersomnia, no change in appetite Endocrine: no cold intolerance, no heat intolerance, no excessive thirst, no polydipsia, no polyuria Hematologic/Lymphatic: no easy bruising, no easy bleeding, no lymphadenopathy Allergic/Immunologic: no urticaria, no allergic rhinitis, no wheezing, no persistent infections, no anaphylaxis, no gluten intolerance, no seasonal allergies Exam - Constitutional Vitals: Temp Pulse Resp BP Pulse Ox 98.4 F 86 16 142/88 100 07/26/19 12:17 07/26/19 12:17 07/26/19 12:17 07/26/19 12:17 07/26/19 12:17 General appearance: Present: mild distress - EENT Eyes: Present: PERRL ENT: hearing intact, clear oral mucosa - Neck Neck: Present: supple, normal ROM - Respiratory Respiratory effort: normal Respiratory: bilateral: CTA - Cardiovascular Heart Sounds: Present: S1 & S2. Absent: rub, click - Extremities Extremities: pulses symmetrical, No edema Peripheral Pulses: within normal limits - Abdominal General gastrointestinal: Present: soft, non-tender, non-distended, normal bowel sounds Male genitourinary: Present: normal - Integumentary Integumentary: Present: clear, warm, dry - Musculoskeletal Musculoskeletal: gait normal, strength equal bilaterally - Psychiatric Psychiatric: appropriate mood/affect, intact judgment & insight - Neurologic Neurologic: CNII-XII intact, moves all extremities Results - Labs CBC & Chem 7: 07/26/19 08:11 07/26/19 08:11 Labs: Abnormal lab results 07/26/19 07/26/19 07/26/19 Range/Units 07:25 08:11 08:11 MCH 27 L (28-32) pg RDW 15.3 H (13.2-15.2) % Carbon Dioxide 16 L (22-30) mmol/L BUN 7 L (9-20) mg/dL Glucose 206 H (75-100) mg/dL POC Glucose 223 H (70-105) Alkaline Phosphatase 153 H (35-129) units/L Assessment and Plan - Patient Problems (1) Uncontrolled seizures Current Visit: Yes Status: Acute Qualifiers: Convulsion type: unspecified Qualified Code(s): R56.9 - Unspecified convulsions Plan to address problem: Seizure precautions, Ativan prn, neuro checks, Keppra loading, resume home AED, (2) HTN (hypertension) Current Visit: Yes Status: Acute Qualifiers: Hypertension type: essential hypertension Qualified Code(s): I10 - Essential (primary) hypertension Plan to address problem: Monitor bp q shift, continue medical management. (3) Diabetes Current Visit: Yes Status: Acute Plan to address problem: ADA diet, insulin, accu check, hypoglycemia protocol (4) HLD (hyperlipidemia) Current Visit: Yes Status: Acute Qualifiers: Hyperlipidemia type: mixed hyperlipidemia Qualified Code(s): E78.2 - Mixed hyperlipidemia Plan to address problem: balanced diet, low fat/low cholesterol diet. (5) DVT prophylaxis Current Visit: Yes Status: Acute Plan to address problem: SCD to BLE while in bed,
[2019-07-26] MEDS ORDERED: DEXTROSE 50% IN WATER (25GM) 50 ML SYRINGE IV PRN (13:25)
[2019-07-26] MEDS ORDERED: NON-FORMULARY EACH (Lacosamide [Vimpat] 200 MG) PO SCH (13:26)
[2019-07-26] MEDS ORDERED: OXCARBAZEPINE 1200 MG PO SCH (13:30)
[2019-07-26] MEDS: LACOSAMIDE 100 MG TAB PO SCH ×2 (14:21→22:13)
[2019-07-26] MEDS: OXcarbazepine 300 MG TAB PO SCH ×2 (14:21→22:12)
[2019-07-26] MEDS: TOPIRAMATE TAB 200 MG TAB PO SCH ×2 (15:48→22:07)
[2019-07-26] MEDS: INSULIN LISPRO 100 UNIT/ML SUB-Q SCH (17:36)
[2019-07-26] MEDS ORDERED: NON-FORMULARY EACH (Olanzapine [Zyprexa] 15 MG) PO SCH (22:00)
[2019-07-26] MEDS: lamoTRIgine 100 MG TAB PO SCH (22:07)
[2019-07-27] MEDS: INSULIN LISPRO 100 UNIT/ML SUB-Q SCH ×4 (01:58→17:56)
[2019-07-27] MEDS: TOPIRAMATE TAB 200 MG TAB PO SCH ×2 (09:47→22:19)
[2019-07-27] MEDS: LACOSAMIDE 100 MG TAB PO SCH ×2 (09:48→22:20)
[2019-07-27] MEDS: lamoTRIgine 100 MG TAB PO SCH ×2 (09:48→22:20)
[2019-07-27] MEDS: OXcarbazepine 300 MG TAB PO SCH ×2 (09:48→22:19)
[2019-07-27] MEDS: POLYETHYLENE GLYCOL 3350 17 GM POWDER PO SCH (09:48)
[2019-07-27] MEDS: LISINOPRIL 10 MG TAB PO SCH (09:49)
[2019-07-27] MEDS ORDERED: POLYETHYLENE GLYCOL PO SCH (10:00)
--- NOTE | 2019-07-27 10:52 | Progress Note ---
Assessment and Plan Assessment and plan: Seizure disorder. Continue seizure precautions. Ativan when necessary. Continue AEDs. Hypertension. Resume antihypertensive medications. Diabetes mellitus type 2. Continue Accu-Cheks and sliding scale insulin. Hyperlipidemia. Continue statins. History Interval history: No new issues overnight. Hospitalist Physical - Constitutional Vitals: Temp Pulse Resp BP Pulse Ox 97.7 F 83 18 153/87 99 07/27/19 05:31 07/27/19 09:49 07/27/19 05:31 07/27/19 09:49 07/27/19 05:31 General appearance: Present: mild distress - EENT Eyes: Present: PERRL, EOM intact ENT: hearing intact, clear oral mucosa, dentition normal - Neck Neck: Present: supple, normal ROM - Respiratory Respiratory effort: normal Respiratory: bilateral: CTA - Cardiovascular Rhythm: regular Heart Sounds: Present: S1 & S2. Absent: gallop, rub - Extremities Extremities: no ischemia, No edema, Full ROM - Abdominal General gastrointestinal: soft, non-tender, non-distended, normal bowel sounds - Integumentary Integumentary: Present: clear, warm, dry - Neurologic Neurologic: CNII-XII intact, moves all extremities Results - Labs CBC & Chem 7: 07/26/19 08:11 07/26/19 08:11 Labs: Laboratory Last Values WBC 7.7 K/mm3 (4.5-11.0) 07/26/19 08:11 RBC 5.00 M/mm3 (3.65-5.03) 07/26/19 08:11 Hgb 13.7 gm/dl (11.8-15.2) 07/26/19 08:11 Hct 42.2 % (35.5-45.6) 07/26/19 08:11 MCV 84 fl (84-94) 07/26/19 08:11 MCH 27 pg (28-32) L 07/26/19 08:11 MCHC 32 % (32-34) 07/26/19 08:11 RDW 15.3 % (13.2-15.2) H 07/26/19 08:11 Plt Count 230 K/mm3 (140-440) 07/26/19 08:11 Sodium 141 mmol/L (137-145) 07/26/19 08:11 Potassium 4.5 mmol/L (3.6-5.0) 07/26/19 08:11 Chloride 105.5 mmol/L (98-107) 07/26/19 08:11 Carbon Dioxide 16 mmol/L (22-30) L 07/26/19 08:11 Anion Gap 24 mmol/L 07/26/19 08:11 BUN 7 mg/dL (9-20) L 07/26/19 08:11 Creatinine 0.8 mg/dL (0.8-1.5) 07/26/19 08:11 Estimated GFR > 60 ml/min 07/26/19 08:11 BUN/Creatinine Ratio 9 % 07/26/19 08:11 Glucose 206 mg/dL (75-100) H 07/26/19 08:11 POC Glucose 121 (70-105) H 07/27/19 05:53 Calcium 9.5 mg/dL (8.4-10.2) 07/26/19 08:11 Total Bilirubin 0.20 mg/dL (0.1-1.2) 07/26/19 08:11 AST 13 units/L (5-40) 07/26/19 08:11 ALT 11 units/L (7-56) 07/26/19 08:11 Alkaline Phosphatase 153 units/L (35-129) H 07/26/19 08:11 Total Protein 7.9 g/dL (6.3-8.2) 07/26/19 08:11 Albumin 4.3 g/dL (3.9-5) 07/26/19 08:11 Albumin/Globulin Ratio 1.2 % 07/26/19 08:11 Active Medications - Current Medications Current Medications: Generic Name Dose Route Start Last Admin Trade Name Freq PRN Reason Stop Dose Admin Atorvastatin Calcium 40 mg 07/26/19 22:00 07/26/19 22:07 Lipitor PO 40 mg QHS PAULIE Administration Dextrose 50 ml 07/26/19 13:25 D50w (25gm) Syringe IV Q30MIN PRN Hypoglycemia Protocol Insulin Human Lispro 0 unit 07/26/19 18:00 07/27/19 06:21 Humalog SUB-Q Not Given Q6HR PAULIE Protocol Lacosamide 200 mg 07/26/19 14:00 07/27/19 09:48 Vimpat PO 200 mg Q12HR PAULIE Administration Lamotrigine 200 mg 07/26/19 22:00 07/27/19 09:48 Lamictal PO 200 mg BID PAULIE Administration Lisinopril 10 mg 07/27/19 10:00 07/27/19 09:49 Zestril PO 10 mg QDAY PAULIE Administration Olanzapine 15 mg 07/26/19 22:00 07/26/19 22:07 Zyprexa PO 15 mg QHS PAULIE Administration Oxcarbazepine 1,200 mg 07/26/19 14:00 07/27/19 09:48 Trileptal PO 1,200 mg Q12HR PAULIE Administration Polyethylene Glycol 17 gm 07/27/19 10:00 07/27/19 09:48 Miralax 3350 PO 17 gm QDAY PAULIE Administration Topiramate 200 mg 07/26/19 13:26 07/27/19 09:47 Topamax PO 200 mg BID PAULIE Administration
[2019-07-28] MEDS: INSULIN LISPRO 100 UNIT/ML SUB-Q SCH ×5 (02:03→22:11)
[2019-07-28] MEDS: TOPIRAMATE TAB 200 MG TAB PO SCH ×2 (09:26→22:11)
[2019-07-28] MEDS: LACOSAMIDE 100 MG TAB PO SCH ×2 (09:26→22:11)
[2019-07-28] MEDS: POLYETHYLENE GLYCOL 3350 17 GM POWDER PO SCH (09:26)
[2019-07-28] MEDS: lamoTRIgine 100 MG TAB PO SCH ×2 (09:26→22:10)
[2019-07-28] MEDS: OXcarbazepine 300 MG TAB PO SCH ×2 (09:27→22:10)
[2019-07-28] MEDS: LISINOPRIL 10 MG TAB PO SCH (09:27)
--- NOTE | 2019-07-28 09:59 | Discharge Summary ---
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 Pt subsequently notified EMS and patient transported to [facility]. Pt seen and evaluated in ED and found to have Seizure Disorder with Recurrent seizures. Pt denied medication noncompliance. However after admission, later reported patient had not been compliant with medications. Patient was placed back on his appropriate home AED regimen with no further seizure activity. Patient was initially confused on admission and was secondary to post ictal state. Patient was being prepared for discharge because of no seizure activity but on the day of discharge had what appeared to be a seizure. Neurology was consulted and felt that the current seizures were likely related to potentially olanzapine reducing seizure threshold and or hyponatremia caused by Trileptal. A BMP was obtained and showed no evidence of hyponatremia therefore Trileptal dose did not need adjustment. Neurology recommended discontinuing olanzapine. Patient remained without seizures and thus will be discharged home. Patient is back to his baseline mental status. Patient was counseled on the importance of compliance with medication and will resume his home regimen. Also, patient was instructed to have no driving until cleared by neurology or PCP He voiced understanding. Dedicated discharge time 35 minutes. Disposition: - TO HOME OR SELFCARE Time spent for discharge: 35 - Discharge Diagnoses (1) Diabetes Status: Acute (2) HLD (hyperlipidemia) Status: Acute Qualifiers: Hyperlipidemia type: mixed hyperlipidemia Qualified Code(s): E78.2 - Mixed hyperlipidemia (3) HTN (hypertension) Status: Acute Qualifiers: Hypertension type: essential hypertension Qualified Code(s): I10 - Essential (primary) hypertension (4) Seizure Status: Acute Core Measure Documentation - Palliative Care Palliative Care/ Comfort Measures: Not Applicable - Core Measures Any of the following diagnoses?: none Exam - Constitutional Vitals: Temp Pulse Resp BP Pulse Ox 98.4 F 86 24 144/94 100 07/28/19 04:35 07/28/19 04:35 07/28/19 04:35 07/28/19 04:35 11/15/19 04:35 General appearance: Present: no acute distress, well-nourished - EENT Eyes: Present: PERRL ENT: hearing intact, clear oral mucosa - Neck Neck: Present: supple, normal ROM - Respiratory Respiratory effort: normal Respiratory: bilateral: CTA - Cardiovascular Heart Sounds: Present: S1 & S2. Absent: rub, click - Extremities Extremities: pulses symmetrical, No edema Peripheral Pulses: within normal limits - Abdominal General gastrointestinal: Present: soft, non-tender, non-distended, normal bowel sounds Male genitourinary: Present: normal - Integumentary Integumentary: Present: clear, warm, dry - Musculoskeletal Musculoskeletal: gait normal, strength equal bilaterally - Psychiatric Psychiatric: appropriate mood/affect, intact judgment & insight - Neurologic Neurologic: CNII-XII intact, moves all extremities Plan Activity: advance as tolerated, no driving until cleared by PCP (No driving until cleared by PCP or neurology) Weight Bearing Status: Weight Bear as Tolerated Diet: regular Additional Instructions: Discontinue the olanzapine Follow up with: KELLY ROWE MD [Staff Physician] - 7 Days PRIMARY CARE, [Primary Care Provider] - 3-5 Days RENÉ MONTANEZ MD [Staff Physician] - 7 Days Prescriptions: metFORMIN [Glucophage] 500 mg PO BIDWM #30 tab lamoTRIgine [LaMICtal] 200 mg PO BID #60 tab AtorvaSTATin [Lipitor] 40 mg PO QHS #30 tablet Topiramate [Topamax] 200 mg PO BID #30 tab OXcarbazepine [Trileptal] 1,200 mg PO Q12H #30 tab Lacosamide [Vimpat] 200 mg PO BID #60 tab-cap Lisinopril [Zestril TAB] 10 mg PO QDAY #30 tab
--- NOTE | 2019-07-28 11:49 | Progress Note ---
Assessment and Plan Assessment and plan: Acute encephalopathy. No witnessed sz activity. Neurology consultation. We will also check seizure medication levels. Seizure disorder. Continue seizure precautions. Ativan when necessary. Continue AEDs. Hypertension. Resume antihypertensive medications. Diabetes mellitus type 2. Continue Accu-Cheks and sliding scale insulin. Hyperlipidemia. Continue statins. - Patient Problems (1) Diabetes Current Visit: Yes Status: Acute (2) HLD (hyperlipidemia) Current Visit: Yes Status: Acute Qualifiers: Hyperlipidemia type: mixed hyperlipidemia Qualified Code(s): E78.2 - Mixed hyperlipidemia (3) HTN (hypertension) Current Visit: Yes Status: Acute Qualifiers: Hypertension type: essential hypertension Qualified Code(s): I10 - Essential (primary) hypertension (4) Seizure Current Visit: Yes Status: Acute History Interval history: No new issues overnight. Hospitalist Physical - Constitutional Vitals: Temp Pulse Resp BP Pulse Ox 98.4 F 86 24 144/94 100 07/28/19 04:35 07/28/19 04:35 07/28/19 04:35 07/28/19 04:35 07/28/19 04:35 General appearance: Present: no acute distress, well-nourished - EENT Eyes: Present: PERRL, EOM intact ENT: hearing intact, clear oral mucosa, dentition normal - Neck Neck: Present: supple, normal ROM - Respiratory Respiratory effort: normal Respiratory: bilateral: CTA - Cardiovascular Rhythm: regular Heart Sounds: Present: S1 & S2. Absent: gallop, rub - Extremities Extremities: no ischemia, No edema, Full ROM - Abdominal General gastrointestinal: soft, non-tender, non-distended, normal bowel sounds - Integumentary Integumentary: Present: clear, warm, dry - Neurologic Neurologic: CNII-XII intact, moves all extremities, other (patient is confused, appears encephalopathic) Results - Labs CBC & Chem 7: 07/26/19 08:11 07/26/19 08:11 Labs: Laboratory Last Values WBC 7.7 K/mm3 (4.5-11.0) 07/26/19 08:11 RBC 5.00 M/mm3 (3.65-5.03) 07/26/19 08:11 Hgb 13.7 gm/dl (11.8-15.2) 07/26/19 08:11 Hct 42.2 % (35.5-45.6) 07/26/19 08:11 MCV 84 fl (84-94) 07/26/19 08:11 MCH 27 pg (28-32) L 07/26/19 08:11 MCHC 32 % (32-34) 07/26/19 08:11 RDW 15.3 % (13.2-15.2) H 07/26/19 08:11 Plt Count 230 K/mm3 (140-440) 07/26/19 08:11 Sodium 141 mmol/L (137-145) 07/26/19 08:11 Potassium 4.5 mmol/L (3.6-5.0) 07/26/19 08:11 Chloride 105.5 mmol/L (98-107) 07/26/19 08:11 Carbon Dioxide 16 mmol/L (22-30) L 07/26/19 08:11 Anion Gap 24 mmol/L 07/26/19 08:11 BUN 7 mg/dL (9-20) L 07/26/19 08:11 Creatinine 0.8 mg/dL (0.8-1.5) 07/26/19 08:11 Estimated GFR > 60 ml/min 07/26/19 08:11 BUN/Creatinine Ratio 9 % 07/26/19 08:11 Glucose 206 mg/dL (75-100) H 07/26/19 08:11 POC Glucose 167 (70-105) H 07/28/19 11:29 Calcium 9.5 mg/dL (8.4-10.2) 07/26/19 08:11 Total Bilirubin 0.20 mg/dL (0.1-1.2) 07/26/19 08:11 AST 13 units/L (5-40) 07/26/19 08:11 ALT 11 units/L (7-56) 07/26/19 08:11 Alkaline Phosphatase 153 units/L (35-129) H 07/26/19 08:11 Total Protein 7.9 g/dL (6.3-8.2) 07/26/19 08:11 Albumin 4.3 g/dL (3.9-5) 07/26/19 08:11 Albumin/Globulin Ratio 1.2 % 07/26/19 08:11 Active Medications - Current Medications Current Medications: Generic Name Dose Route Start Last Admin Trade Name Freq PRN Reason Stop Dose Admin Atorvastatin Calcium 40 mg 07/26/19 22:00 07/27/19 22:19 Lipitor PO 40 mg QHS PAULIE Administration Dextrose 50 ml 07/26/19 13:25 D50w (25gm) Syringe IV Q30MIN PRN Hypoglycemia Protocol Insulin Human Lispro 0 unit 07/26/19 18:00 07/28/19 06:11 Humalog SUB-Q Not Given Q6HR PAULIE Protocol Lacosamide 200 mg 07/26/19 14:00 07/28/19 09:26 Vimpat PO 200 mg Q12HR PAULIE Administration Lamotrigine 200 mg 07/26/19 22:00 07/28/19 09:26 Lamictal PO 200 mg BID PAULIE Administration Lisinopril 10 mg 07/27/19 10:00 07/28/19 09:27 Zestril PO 10 mg QDAY PAULIE Administration Olanzapine 15 mg 07/26/19 22:00 07/27/19 22:20 Zyprexa PO 15 mg QHS PAULIE Administration Oxcarbazepine 1,200 mg 07/26/19 14:00 07/28/19 09:27 Trileptal PO 1,200 mg Q12HR PAULIE Administration Polyethylene Glycol 17 gm 07/27/19 10:00 07/28/19 09:26 Miralax 3350 PO 17 gm QDAY PAULIE Administration Topiramate 200 mg 07/26/19 13:26 07/28/19 09:26 Topamax PO 200 mg BID PAULIE Administration Nutrition/Malnutrition Assess - Dietary Evaluation Nutrition/Malnutrition Findings: Nutrition Notes Start: 07/27/19 10:48 Freq: Status: Active Protocol: Document 07/27/19 10:48 GLORIA (Rec: 07/27/19 10:54 GLORIA [id number]) Co-Sign 07/27/19 10:48 Nutrition Notes Need for Assessment generated from: Low BMI Initial or Follow up Brief Note Height 5 ft 7 in Weight 63.2 kg [place] Body Weight (kg) 67.27 BMI 21.8 Weight change and time frame Pt weighed 63.2kg per bed scale Subjective/Other Information Pt screened for low BMI. Weight corrected. Nutrition Intervention Revisit per MD consult or patient Sign Off request:
--- NOTE | 2019-07-28 18:39 | Consultation ---
Past History Past Medical History: other (see hpi) Past Surgical History: Other (Deep Brain Stimulator Placement) Social history: , lives with family Family history: diabetes, hypertension Medications and Allergies Allergies Allergy/AdvReac Type Severity Reaction Status Date / Time aspirin Allergy Unknown Verified 07/26/19 07:22 Home Medications Medication Instructions Recorded Confirmed Last Taken Type Insulin Glargine [Lantus VIAL] 18 units SUB-Q QPM 06/21/19 07/28/19 Unknown History Polyethylene Glycol 3350 [Miralax] 1 cap PO DAILY 3 Days #3 dose 07/04/19 07/28/19 Unknown Rx AtorvaSTATin [Lipitor] 40 mg PO QHS #30 tablet 07/28/19 Unknown Rx Lacosamide [Vimpat] 200 mg PO BID #60 tab-cap 07/28/19 Unknown Rx Lisinopril [Zestril TAB] 10 mg PO QDAY #30 tab 07/28/19 Unknown Rx OLANZapine [Zyprexa] 15 mg PO HS #30 tab 07/28/19 Unknown Rx OLANzapine [ZyPREXA] 15 mg PO QHS tablet 07/28/19 Unknown Rx OXcarbazepine [Trileptal] 1,200 mg PO Q12H #30 tab 07/28/19 Unknown Rx OXcarbazepine [Trileptal] 1,200 mg PO Q12HR tablet 07/28/19 Unknown Rx Polyethylene Glycol 3350 [Miralax 17 gm PO QDAY powd.pack 07/28/19 Unknown Rx 3350] Topiramate [Topamax] 200 mg PO BID #30 tab 07/28/19 Unknown Rx lamoTRIgine [LaMICtal] 200 mg PO BID #60 tab 07/28/19 Unknown Rx metFORMIN [Glucophage] 500 mg PO BIDWM #30 tab 07/28/19 Unknown Rx Active Meds: Active Medications Atorvastatin Calcium (Lipitor) 40 mg PO QHS PAULIE Last Admin: 07/27/19 22:19 Dose: 40 mg Documented by: Dextrose (D50w (25gm) Syringe) 50 ml IV Q30MIN PRN; Protocol PRN Reason: Hypoglycemia Insulin Human Lispro (Humalog) 0 unit SUB-Q ACHS PAULIE; Protocol Last Admin: 07/28/19 17:01 Dose: Not Given Documented by: Lacosamide (Vimpat) 200 mg PO Q12HR PAULIE Last Admin: 07/28/19 09:26 Dose: 200 mg Documented by: Lamotrigine (Lamictal) 200 mg PO BID [facility] Last Admin: 07/28/19 09:26 Dose: 200 mg Documented by: Lisinopril (Zestril) 10 mg PO QDAY [facility] Last Admin: 07/28/19 09:27 Dose: 10 mg Documented by: Olanzapine (Zyprexa) 15 mg PO QHS [facility] Last Admin: 07/27/19 22:20 Dose: 15 mg Documented by: Oxcarbazepine (Trileptal) 1,200 mg PO Q12HR [facility] Last Admin: 07/28/19 09:27 Dose: 1,200 mg Documented by: Polyethylene Glycol (Miralax 3350) 17 gm PO QDAY [facility] Last Admin: 07/28/19 09:26 Dose: 17 gm Documented by: Topiramate (Topamax) 200 mg PO BID [facility] Last Admin: 07/28/19 09:26 Dose: 200 mg Documented by: Physical Examination - Vital Signs Vital Signs: Vital Signs Temp Pulse Resp BP Pulse Ox 98.7 F 88 14 149/88 98 07/26/19 07:22 07/26/19 07:22 07/26/19 07:22 07/26/19 07:22 07/26/19 07:22 Results - Laboratory Findings CBC and BMP: 07/26/19 08:11 07/26/19 08:11 Abnormal Lab Findings: Abnormal Labs 07/26/19 07/26/19 07/26/19 07:25 08:11 08:11 MCH 27 L RDW 15.3 H Carbon Dioxide 16 L BUN 7 L Glucose 206 H POC Glucose 223 H Alkaline Phosphatase 153 H 07/26/19 07/27/19 07/27/19 17:04 05:53 11:41 MCH RDW Carbon Dioxide BUN Glucose POC Glucose 172 H 121 H 255 H Alkaline Phosphatase 07/27/19 07/27/19 07/28/19 16:49 23:18 05:36 MCH RDW Carbon Dioxide BUN Glucose POC Glucose 145 H 150 H 113 H Alkaline Phosphatase 07/28/19 07/28/19 11:29 16:31 MCH RDW Carbon Dioxide BUN Glucose POC Glucose 167 H 130 H Alkaline Phosphatase Assessment and Plan 53 YEAR OLD MALE WITH HISTORY OF DIABETES,HYPERTENSION,HLD, WHO INITIALLY D EVELOPED SEIZURE ABOUT SIX YEARS AGO.HE DENIES ANY RISK FACTOR EXCEPT FOR CHILDHOOD MENINGITIS.PATIENT'S SEIZURE WAS INTRACTABLE TO AN EXTENT THAT HE WAS HAVING 6 TO 7 SEIZURE EVERY MONTH INSPITE OF MULTIPLE SEIZURE MEDICATIONS INCLUDING TOPAMAX,LAMOTRIGINE,LACOSAMIDE,AND TRILEPTAL. PATIENT DEVELOPED TWO EPISODES OF SEIZURE TODAY AND HIS CALLED EMS WHO BROUGHT HIM TO HOSPITAL,WORK UP AFTER ADMISSION INCLUDING CT SCAN DOES NOT SHOW ANY ACUTE CHANGE, PATIENT WAS GIVEN DEEP BRAIN STIMULATION IMPLANT ABOUT TWO YEARS AGO FOLLOWING WHICAMINATION- AMINATIONH HE IS DEVELOPING ONE TO TWO SEIZURE ON AVERAGE.HE IS COMPLIANT WITH MEDICATION,PATIENT DEVELOPED AN EPISODE OF HEAD INJURY CAUSING INTRA CRANIAL BLEED THREE YEARS AGO WHEN HE WAS ADMITTED AT [facility] FOR MORE THAN 2 MONTHS AND AT THAT POINT HAD SOME PSYCHIATRIC SYMPTOMS ,NOT CLEARLY MENTIONED BY HIS WHEN PSYCHIATRIST PLACED ON OLANZAPINE WHICH IS KNOWN TO CAUSE SEIZURE, AT PRESENT DENIES ANY PSYCHIATRIC SYMPTOMS SUCH HALLUCINATION OR AGITATION. CT SCAN OF THE BRAIN AFTER ADMISSION SHOWS DBS LEADS IN DEEP TEMPORAL LOBE BILATERALLY, IN CORRECT POSITION. PHYSICAL EXAMINATION. IN NO ACUTE DISTRESS, HE IS ALERT AND APPROPRIATE AND ANSWERS QUESTIONS APPROPRIATEL. HE IS LITTLE SLOW IN RESPONSE WHICH IS HIS BASELINE. HEART-NORMAL RATE AND RHYTHM, CAROTIDS-BOTH PALPABLE, CRANIAL NERVES- ALL CRANIAL NERVES ARE WITH IN NORMAL LIMIT, MOTOR- NORMAL STRENGTH IN ALL FOUR EXTREMITIES WITH BILATERAL DOWN GOING TOES. COORDINATION- NORMAL. SENSORY- GROSSLY WITH IN NORMAL LIMIT IMPRESSION' 1. RECURRENT SEIZURE IN SPITE OF SUCCESSFUL DEEP BRAIN STIMULATION IMPLANT AND MULTIPLE SEIZURE MEDICATION ARE LIKLEY TO BE DUE TO 1. OLANZAPINE,CAN REDUCE SEIZURE THRESHOLD 2. HYPONATREMIA CAUSED BY TRILEPTAL, RECOMMEND 1. PLEASE CHECK SERUM ELECTROLYTES AND IF SODIUM IS LOW, TRI LEPTAL DOSE NEEDS TO BE ADJUSTED 2, DISCONTINUE OLANZAPINE.
[2019-07-29 04:54] LABS: Basophils # (Auto) 0.1 K/mm3 (0.0-0.1); Basophils % (Auto) 0.7 % (0.0-1.8); Eosinophils % (Auto) 0.1 % (0.0-4.3); Hematocrit 41.7 % (35.5-45.6); Hemoglobin 13.4 gm/dl (11.8-15.2); Lymphocytes # (Auto) 1.7 K/mm3 (1.2-5.4); Mean Corpuscular HGB Conc 32 % (32-34); Mean Corpuscular Volume 84 fl (84-94); Monocytes # (Auto) 0.7 K/mm3 (0.0-0.8); Monocytes % (Auto) 8.6 % (0.0-7.3); Platelet Count 248 K/mm3 (140-440); Red Blood Count 4.98 M/mm3 (3.65-5.03); Red Cell Distribution Width 15.1 % (13.2-15.2)
[2019-07-29 05:14] LABS: BUN/Creatinine Ratio 11; Blood Urea Nitrogen 10 mg/dL (9-20); Calcium 9.6 mg/dL (8.4-10.2); Hemolysis Index 5
[2019-07-29] MEDS: INSULIN LISPRO 100 UNIT/ML SUB-Q SCH ×2 (09:16→12:36)
[2019-07-29] MEDS: LACOSAMIDE 100 MG TAB PO SCH (09:17)
[2019-07-29] MEDS: lamoTRIgine 100 MG TAB PO SCH (09:17)
[2019-07-29] MEDS: TOPIRAMATE TAB 200 MG TAB PO SCH (09:18)
[2019-07-29] MEDS: OXcarbazepine 300 MG TAB PO SCH (09:18)
[2019-07-29] MEDS: POLYETHYLENE GLYCOL 3350 17 GM POWDER PO SCH (09:18)
[2019-07-29] MEDS: LISINOPRIL 10 MG TAB PO SCH (09:18)
[2019-07-29 14:40] VITALS: BP 172/113
== END 2019-07-29 15:04 | disposition home or self-care (01) | DRG 101 ==
LOC: ED 06:58 → 3A 11:45 → OBSVTOIN 07-28 15:39 → 3A 07-29 02:30
PROVIDERS: ADMIT Internal Medicine; ATTEND Hospitalist
DX: G40.901 Epilepsy, unspecified, not intractable, with status epilepticus (principal); E11.9 Type 2 diabetes mellitus without complications; I10 Essential (primary) hypertension; E78.2 Mixed hyperlipidemia; E78.00 Pure hypercholesterolemia, unspecified; Z79.4 Long term (current) use of insulin; Z79.899 Other long term (current) drug therapy; Z88.8 Allergy status to other drugs, medicaments and biological substances; Z82.49 Family history of ischemic heart disease and other diseases of the circulatory system; Z83.3 Family history of diabetes mellitus
CPT/HCPCS: 36415; 70450; 80048; 80053; 80201; 82962; 85025; 85027; G0378; A9270-GY; J1815; J1953; J2060

== ENCOUNTER 2019-09-23 06:54 | Inpatient (IN) | payer MEDICARE ==
[2019-09-23 07:40] LABS: Hematocrit 37.8 % (35.5-45.6); Hemoglobin 12.5 gm/dl (11.8-15.2); Mean Corpuscular HGB Conc 33 % (32-34); Mean Corpuscular Volume 84 fl (84-94); Platelet Count 227 K/mm3 (140-440); Red Blood Count 4.51 M/mm3 (3.65-5.03); Red Cell Distribution Width 16.4 % (13.2-15.2)
[2019-09-23 07:52] LABS: BUN/Creatinine Ratio 8; Blood Urea Nitrogen 7 mg/dL (9-20); Calcium 9.4 mg/dL (8.4-10.2); Hemolysis Index 1
[2019-09-23] MEDS ORDERED: LORazepam 2 MG/ML VIAL IM ONE (08:28)
[2019-09-23] MEDS ORDERED: LORazepam 2 MG/ML VIAL ONE (08:31)
[2019-09-23] MEDS ORDERED: SODIUM CHLORIDE 0.9% 1000 ML 2,000 ML IV ONE (08:51)
[2019-09-23] MEDS ORDERED: levETIRAcetam 1000 MG/NS 0.75% 1,000 MG/100 ML BAG IV ONE (08:51)
--- NOTE | 2019-09-23 09:12 | XRay Report ---
CHEST 1 VIEW 09/23/2019 8:51 AM INDICATION / CLINICAL INFORMATION: tachycardia. COMPARISON: Chest x-ray 06/21/2019 FINDINGS: SUPPORT DEVICES: None. HEART / MEDIASTINUM: No significant abnormality. LUNGS / PLEURA: No significant pulmonary or pleural abnormality. No pneumothorax. ADDITIONAL FINDINGS: No significant additional findings. IMPRESSION: 1. No acute findings. Signer Name: Rasta Tijerina MD Signed: 09/23/2019 9:08 AM Workstation Name: [id number]
[2019-09-23 09:39] LABS: INR 0.98 (0.87-1.13)
[2019-09-23 10:05] LABS: Alanine Aminotransferase 8 units/L (7-56); Albumin 4.5 g/dL (3.9-5); Bilirubin,Direct < 0.2 mg/dL (0-0.2)
--- NOTE | 2019-09-23 10:08 | Cat Scan Report ---
CT HEAD WITHOUT CONTRAST INDICATION / CLINICAL INFORMATION: Alterted Mental Status. TECHNIQUE: All CT scans at this location are performed using CT dose reduction for ALARA by means of automated e xposure control. COMPARISON: CT head 07/26/2019 FINDINGS: HEMORRHAGE: None. EXTRA-AXIAL SPACES: Normal in size and morphology for the patient's age. VENTRICULAR SYSTEM: Ventriculomegaly, unchanged. Simulator leads again terminating within the medial temporal regions bilaterally, unchanged CEREBRAL PARENCHYMA: No significant abnormality. No acute territorial infarct. MIDLINE SHIFT OR HERNIATION: None. CEREBELLUM / BRAINSTEM: No significant abnormality. ORBITS: Normal as visualized. SOFT TISSUES of HEAD: No significant abnormality. CALVARIUM: No significant abnormality. Left parietal craniectomy with metallic plate and streak artif act, unchanged PARANASAL SINUSES / MASTOID AIR CELLS: Normal as visualized. ADDITIONAL FINDINGS: None. IMPRESSION: 1. No acute intracranial abnormality. 2. Ventriculomegaly, stable and unchanged Signer Name: Rasta Tijerina MD Signed: 09/23/2019 10:04 AM Workstation Name: [id number]
--- NOTE | 2019-09-23 11:05 | Emergency Department Report ---
ED Seizure HPI - General Chief Complaint: Seizure Stated Complaint: SEIZURE Time Seen by Provider: 09/23/19 07:52 Source: EMS Mode of arrival: Stretcher Limitations: Altered Mental Status (seizure, postictal) - History of Present Illness Initial Comments: ER nurse reports patient presented for seizure. Reports patient with hx of seizure. - Related Data Home Medications Medication Instructions Recorded Confirmed Last Taken Insulin Glargine [Lantus VIAL] 18 units SUB-Q QPM 06/21/19 07/28/19 Unknown Previous Rx's Medication Instructions Recorded Last Taken Type Polyethylene Glycol 3350 [Miralax] 1 cap PO DAILY 3 Days #3 dose 07/04/19 Unknown Rx AtorvaSTATin [Lipitor] 40 mg PO QHS #30 tablet 07/28/19 Unknown Rx Lacosamide [Vimpat] 200 mg PO BID #60 tab-cap 07/28/19 Unknown Rx OXcarbazepine [Trileptal] 1,200 mg PO Q12H #30 tab 07/28/19 Unknown Rx OXcarbazepine [Trileptal] 1,200 mg PO Q12HR tablet 07/28/19 Unknown Rx Polyethylene Glycol 3350 [Miralax 17 gm PO QDAY powd.pack 07/28/19 Unknown Rx 3350] Topiramate [Topamax] 200 mg PO BID #30 tab 07/28/19 Unknown Rx lamoTRIgine [LaMICtal] 200 mg PO BID #60 tab 07/28/19 Unknown Rx lisinopriL [Zestril TAB] 10 mg PO QDAY #30 tab 07/28/19 Unknown Rx metFORMIN [Glucophage] 500 mg PO BIDWM #30 tab 07/28/19 Unknown Rx Allergies Allergy/AdvReac Type Severity Reaction Status Date / Time aspirin Allergy Unknown Verified 07/26/19 07:22 ED Review of Systems ROS: Stated complaint: SEIZURE Other details as noted in HPI Comment: Unobtainable due to pts medical conditions (seizure, postictal) ED Past Medical Hx - Past Medical History Previous Medical History?: Yes Hx Hypertension: Yes Hx Diabetes: Yes Hx Seizures: Yes (epilepsy) Additional medical history: high cholesterol, encephalapathy - Surgical History Past Surgical History?: Yes 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 - Social History Smoking Status: Never Smoker Substance Use Type: None - Medications Home Medications: Home Medications Medication Instructions Recorded Confirmed Last Taken Type Insulin Glargine [Lantus VIAL] 18 units SUB-Q QPM 06/21/19 07/28/19 Unknown History Polyethylene Glycol 3350 [Miralax] 1 cap PO DAILY 3 Days #3 dose 07/04/19 07/28/19 Unknown Rx AtorvaSTATin [Lipitor] 40 mg PO QHS #30 tablet 07/28/19 Unknown Rx Lacosamide [Vimpat] 200 mg PO BID #60 tab-cap 07/28/19 Unknown Rx OXcarbazepine [Trileptal] 1,200 mg PO Q12H #30 tab 07/28/19 Unknown Rx OXcarbazepine [Trileptal] 1,200 mg PO Q12HR tablet 07/28/19 Unknown Rx Polyethylene Glycol 3350 [Miralax 17 gm PO QDAY powd.pack 07/28/19 Unknown Rx 3350] Topiramate [Topamax] 200 mg PO BID #30 tab 07/28/19 Unknown Rx lamoTRIgine [LaMICtal] 200 mg PO BID #60 tab 07/28/19 Unknown Rx lisinopriL [Zestril TAB] 10 mg PO QDAY #30 tab 07/28/19 Unknown Rx metFORMIN [Glucophage] 500 mg PO BIDWM #30 tab 07/28/19 Unknown Rx ED Physical Exam - General Limitations: No Limitations - Other Other exam information: GENERAL: Patient in acute distress HEAD: Normocephalic, atraumatic EYES: PERRLA, EOM intact, no scleral icterus, no conjunctival hemorrhage, visual lowe and acuity wnl NOSE: No tenderness, discharge, sinus tenderness MOUTH: No erythema, bleeding, exudate HEART: Regular rate and rhythm, no murmur, S1-S2 are auscultated, no edema, pulses are symmetric LUNGS: No respiratory distress. Bilateral breath sounds, No tachypnea, No retractions, No wheezing, rales, rhonchi ABDOMEN: Normal bowel sounds, abdomen soft, no tenderness, no rebound, no guarding, no distention, no masses, no CVA tenderness MUSCULOSKELETAL: Normal joint range of motion, no redness, no swelling, no tenderness NEUROLOGIC: generalized tonic-clonic activity in the ER for approximately 30 seconds without seeing patient at baseline before evaluation. No focal neurologic deficit. GCS 11 SKIN: Skin is warm and dry ED Course Vital Signs 09/23/19 09/23/19 09/23/19 07:10 07:20 07:31 Temperature 98.3 F 98.1 F Pulse Rate 93 H 86 82 Respiratory 18 16 14 Rate Blood Pressure 129/77 129/77 Blood Pressure 129/77 [Left] O2 Sat by Pulse 97 97 97 Oximetry 09/23/19 09/23/19 09/23/19 08:00 08:15 08:45 Temperature Pulse Rate 85 80 102 H Respiratory 17 16 19 Rate Blood Pressure 145/87 145/87 145/87 Blood Pressure [Left] O2 Sat by Pulse 98 Oximetry 09/23/19 09:00 Temperature Pulse Rate Respiratory Rate Blood Pressure 172/91 Blood Pressure [Left] O2 Sat by Pulse Oximetry ED Medical Decision Making - Lab Data Result diagrams: 09/23/19 07:20 09/23/19 07:20 Laboratory Results - last 24 hr 09/23/19 09/23/19 09/23/19 07:20 07:20 07:20 WBC 7.0 RBC 4.51 Hgb 12.5 Hct 37.8 MCV 84 MCH 28 MCHC 33 RDW 16.4 H Plt Count 227 PT INR APTT Sodium 139 Potassium 3.6 Chloride 103.9 Carbon Dioxide 15 L Anion Gap 24 BUN 7 L Creatinine 0.9 Estimated GFR > 60 BUN/Creatinine Ratio 8 Glucose 222 H POC Glucose Calcium 9.4 Total Bilirubin 0.20 Direct Bilirubin < 0.2 AST 10 ALT 8 Alkaline Phosphatase 114 Ammonia Troponin T Total Protein 7.6 Albumin 4.5 Albumin/Globulin Ratio 1.5 Plasma/Serum Alcohol 09/23/19 09/23/19 09/23/19 08:05 09:06 09:06 WBC RBC Hgb Hct MCV MCH MCHC RDW Plt Count PT 13.1 INR 0.98 APTT 29.0 Sodium Potassium Chloride Carbon Dioxide Anion Gap BUN Creatinine Estimated GFR BUN/Creatinine Ratio Glucose POC Glucose 194 H Calcium Total Bilirubin Direct Bilirubin AST ALT Alkaline Phosphatase Ammonia Troponin T < 0.010 Total Protein Albumin Albumin/Globulin Ratio Plasma/Serum Alcohol 09/23/19 09/23/19 09:06 09:06 WBC RBC Hgb Hct MCV MCH MCHC RDW Plt Count PT INR APTT Sodium Potassium Chloride Carbon Dioxide Anion Gap BUN Creatinine Estimated GFR BUN/Creatinine Ratio Glucose POC Glucose Calcium Total Bilirubin Direct Bilirubin AST ALT Alkaline Phosphatase Ammonia 68.0 H Troponin T Total Protein Albumin Albumin/Globulin Ratio Plasma/Serum Alcohol < 0.01 - EKG Data When compared to previous EKG there are: no significant change - Radiology Data Radiology results: report reviewed - Medical Decision Making Patient comfortable. Plan admit for further evaluation. Hospitalist updated and accepts admission. Critical care attestation.: If time is entered above; I have spent that time in minutes in the direct care of this critically ill patient, excluding procedure time. ED Disposition Clinical Impression: Status epilepticus Disposition: -09 OP ADMIT IP TO THIS HOSP Is pt being admited?: Yes Condition: Stable Referrals: ADINA GRANADOS MD [Primary Care Provider] - 3-5 Days
[2019-09-23] MEDS ORDERED: ACETAMINOPHEN 325 MG TAB PO PRN (12:08)
[2019-09-23] MEDS ORDERED: ONDANSETRON 4 MG/2 ML INJ IV PRN (12:08)
[2019-09-23] MEDS ORDERED: SODIUM CHLORIDE 0.9% 1000 ML 1,000 ML ONE (12:16)
[2019-09-23 12:41] LABS: Bilirubin,Urine NEG (Negative); Blood,Urine NEG (Negative); Color,Urine Straw (Yellow); Mucus,Urine FEW /HPF; Protein,Urine <15 mg/dL mg/dL (Negative); Sperm,Urine 1+ /HPF (NP); Urobilinogen,Urine < 2.0 mg/dL (<2.0)
[2019-09-23 12:51] LABS: Amphetamine Screen,Urine PRESUMPTIVE NEGATIVE; Benzodiazepines Screen,Urine PRESUMPTIVE NEGATIVE; Cocaine Screen,Urine PRESUMPTIVE NEGATIVE; Methadone Screen,Urine PRESUMPTIVE NEGATIVE; Opiate Screen,Urine PRESUMPTIVE NEGATIVE
[2019-09-23 13:07] LABS: Cannabinoid Screen,Urine PRESUMPTIVE POSITIVE
--- NOTE | 2019-09-23 14:11 | History and Physical Report ---
History of Present Illness Date of examination: 09/23/19 Date of admission: 09/23/19 12:08 Chief complaint: seizure History of present illness: 53 YO Male with Seizure Disorder S/P DBS Placement, DM, HTN, HLD presents to ED for evaluation of intractable seizure episodes. Pt states that he had experienced seizure at home which was witnessed by his . Pt s ubsequently notified EMS and patient transported to [facility]. Pt seen and evaluated in ED and found to have Seizure Disorder with Recurrent seizures. Pt denies medication noncompliance, trauma, fever, chills, CP, palpitations, skin rash, or recent ill contacts. Pt admitted to medical floor. All listed medication reconciled at time of admission. Past History Past Medical History: other (see hpi) Past Surgical History: Other (Deep Brain Stimulator Placement) Social history: , lives with family Family history: diabetes, hypertension Review of Systems Constitutional: other (seizures), no weight loss, no weight gain, no fever, no chills Ears, nose, mouth and throat: no ear pain, no ear discharge, no tinnitis, no nose pain, no nasal congestion Cardiovascular: no chest pain, no orthopnea, no palpitations, no edema, no syncope Respiratory: no cough, no cough with sputum, no excessive sputum, no hemoptysis Gastrointestinal: no nausea, no vomiting, no constipation, no change in bowel habits, no coffee ground emesis Genitourinary Male: no hematuria, no flank pain, no discharge, no urinary frequency, no urinary hesitancy Rectal: no pain, no incontinence, no bleeding Musculoskeletal: no neck stiffness, no neck pain, no shooting arm pain, no arm numbness/tingling, no low back pain Integumentary: no rash, no pruritis, no redness, no sores, no wounds Neurological: no paralysis, no weakness, no parathesias, no seizures, no syncope Psychiatric: no anxiety, no memory loss, no change in sleep habits, no insomnia, no hypersomnia, no change in appetite Endocrine: no cold intolerance, no heat intolerance, no excessive thirst, no polydipsia, no polyuria Hematologic/Lymphatic: no easy bruising, no easy bleeding, no lymphadenopathy Allergic/Immunologic: no urticaria, no allergic rhinitis, no wheezing, no persis tent infections, no anaphylaxis, no gluten intolerance, no seasonal allergies Medications and Allergies Allergies Allergy/AdvReac Type Severity Reaction Status Date / Time aspirin Allergy Unknown Verified 07/26/19 07:22 Home Medications Medication Instructions Recorded Confirmed Last Taken Type Insulin Glargine [Lantus VIAL] 18 units SUB-Q QPM 06/21/19 09/23/19 Unknown History Polyethylene Glycol 3350 [Miralax] 1 cap PO DAILY 3 Days #3 dose 07/04/19 09/23/19 Unknown Rx AtorvaSTATin [Lipitor] 40 mg PO QHS #30 tablet 07/28/19 09/23/19 Unknown Rx Lacosamide [Vimpat] 200 mg PO BID #60 tab-cap 07/28/19 09/23/19 Unknown Rx OXcarbazepine [Trileptal] 1,200 mg PO Q12H #30 tab 07/28/19 09/23/19 Unknown Rx OXcarbazepine [Trileptal] 1,200 mg PO Q12HR tablet 07/28/19 09/23/19 Unknown Rx Polyethylene Glycol 3350 [Miralax 17 gm PO QDAY powd.pack 07/28/19 09/23/19 Unknown Rx 3350] Topiramate [Topamax] 200 mg PO BID #30 tab 07/28/19 09/23/19 Unknown Rx lamoTRIgine [LaMICtal] 200 mg PO BID #60 tab 07/28/19 09/23/19 Unknown Rx lisinopriL [Zestril TAB] 10 mg PO QDAY #30 tab 07/28/19 09/23/19 Unknown Rx metFORMIN [Glucophage] 500 mg PO BIDWM #30 tab 07/28/19 09/23/19 Unknown Rx Active Meds: Active Medications Acetaminophen (Tylenol) 650 mg PO Q4H PRN PRN Reason: Pain MILD(1-3)/Fever >100.5/HENRIQUEZ Atorvastatin Calcium (Lipitor) 40 mg PO QHS PAULIE Enoxaparin Sodium (Enoxaparin) 40 mg SUB-Q QDAY@2200 PAULIE Lamotrigine (Lamictal) 200 mg PO BID PAULIE Lisinopril (Zestril) 10 mg PO QDAY PAULIE Miscellaneous Medication (Lacosamide [Vimpat]) 200 mg PO BID PAULIE Miscellaneous Medication (Polyethylene Glycol 3350 [Miralax]) 1 cap PO DAILY PAULIE Ondansetron HCl (Zofran) 4 mg IV Q8H PRN PRN Reason: Nausea And Vomiting Oxcarbazepine (Trileptal) 1,200 mg PO Q12HR [facility] Sodium Chloride (Sodium Chloride Flush Syringe 10 Ml) 10 ml IV BID [facility] Sodium Chloride (Sodium Chloride Flush Syringe 10 Ml) 10 ml IV PRN PRN PRN Reason: LINE FLUSH Topiramate (Topamax) 200 mg PO BID [facility] Exam - Physical Exam Narrative exam: General appearance: Present: no distress - EENT Eyes: Present: PERRL ENT: hearing intact, clear oral mucosa - Neck Neck: Present: supple, normal ROM - Respiratory Respiratory effort: normal Respiratory: bilateral: CTA - Cardiovascular Heart Sounds: Present: S1 & S2. Absent: rub, click - Extremities Extremities: pulses symmetrical, No edema Peripheral Pulses: within normal limits - Abdominal General gastrointestinal: Present: soft, non-tender, non-distended, normal bowel sounds Male genitourinary: Present: normal - Integumentary Integumentary: Present: clear, warm, dry - Musculoskeletal Musculoskeletal: gait normal, strength equal bilaterally - Psychiatric Psychiatric: appropriate mood/affect, intact judgment & insight - Neurologic Neurologic: CNII-XII intact, moves all extremities - Constitutional Vitals: Temp Pulse Resp BP Pulse Ox 98.1 F 77 29 H 161/80 99 09/23/19 07:20 09/23/19 11:30 09/23/19 11:30 09/23/19 11:30 09/23/19 11:30 Results - Labs CBC & Chem 7: 09/23/19 07:20 09/23/19 07:20 Labs: Abnormal lab results 09/23/19 09/23/19 09/23/19 Range/Units 07:20 07:20 08:05 RDW 16.4 H (13.2-15.2) % Carbon Dioxide 15 L (22-30) mmol/L BUN 7 L (9-20) mg/dL Glucose 222 H (75-100) mg/dL POC Glucose 194 H (70-105) Ammonia (25-60) umol/L 09/23/19 Range/Units 09:06 RDW (13.2-15.2) % Carbon Dioxide (22-30) mmol/L BUN (9-20) mg/dL Glucose (75-100) mg/dL POC Glucose (70-105) Ammonia 68.0 H (25-60) umol/L Assessment and Plan /Seizure disorder with breakthrough episodes. - Continue seizure precautions. Ativan when necessary. Continue AEDs. - neuro consult, CT head showed no acute event /Hypertension. Resume home antihypertensive medications. /Diabetes mellitus type 2. Continue Accu-Cheks and sliding scale insulin. /Hyperlipidemia. Continue statins. /Hyperammonemia, will monitor ammonia level and his LFT stable /Dvt Px, Lovenox
[2019-09-23] MEDS: ENOXAPARIN 40 MG/0.4 ML INJ SUB-Q SCH (21:26)
[2019-09-23] MEDS: lamoTRIgine 100 MG TAB PO SCH (21:26)
[2019-09-23] MEDS: LACOSAMIDE 100 MG TAB PO SCH (21:26)
[2019-09-23] MEDS: OXcarbazepine 300 MG TAB PO SCH (21:26)
[2019-09-23] MEDS: TOPIRAMATE TAB 200 MG TAB PO SCH (21:29)
[2019-09-23] MEDS ORDERED: NON-FORMULARY EACH (Lacosamide [Vimpat] 200 MG) PO SCH (22:00)
[2019-09-24] MEDS: TOPIRAMATE TAB 200 MG TAB PO SCH ×2 (09:17→21:58)
[2019-09-24] MEDS: lamoTRIgine 100 MG TAB PO SCH ×2 (09:17→21:58)
[2019-09-24] MEDS: LACOSAMIDE 100 MG TAB PO SCH ×2 (09:17→21:58)
[2019-09-24] MEDS: OXcarbazepine 300 MG TAB PO SCH ×2 (09:18→21:58)
[2019-09-24] MEDS: LISINOPRIL 10 MG TAB PO SCH (09:19)
[2019-09-24] MEDS: POLYETHYLENE GLYCOL 3350 17 GM POWDER PO SCH (09:22)
[2019-09-24] MEDS ORDERED: POLYETHYLENE GLYCOL PO SCH (10:00)
--- NOTE | 2019-09-24 15:20 | Progress Note ---
Assessment and Plan Seizure disorder with breakthrough episodes. - Continue seizure precautions. Ativan when necessary. Continue AEDs. - neuro consulted - will follow recommendation Hypertension. Resume home antihypertensive medications. Diabetes mellitus type 2. Continue Accu-Cheks and sliding scale insulin. Hyperlipidemia. Continue statins. /Hyperammonemia, will monitor ammonia level and his LFT stable Dvt Px, Chadx Subjective Date of service: 09/24/19 Interval history: Patient seen and examined. Medical records and medication list reviewed. No acute event overnight noted by the RN. Patient denies any chest pain or difficulty breathing. Patient is tolerating diet. No further seizure episodes Discussed plan of care at bedside with patient. Objective - Exam Narrative Exam: General appearance: Present: no distress - EENT Eyes: Present: PERRL ENT: hearing intact, clear oral mucosa - Neck Neck: Present: supple, normal ROM - Respiratory Respiratory effort: normal Respiratory: bilateral: CTA - Cardiovascular Heart Sounds: Present: S1 & S2. Absent: rub, click - Extremities Extremities: pulses symmetrical, No edema Peripheral Pulses: within normal limits - Abdominal General gastrointestinal: Present: soft, non-tender, non-distended, normal bowel sounds Male genitourinary: Present: normal - Integumentary Integumentary: Present: clear, warm, dry - Musculoskeletal Musculoskeletal: gait normal, strength equal bilaterally - Psychiatric Psychiatric: appropriate mood/affect, intact judgment & insight - Neurologic Neurologic: CNII-XII intact, moves all extremities - Constitutional Vitals: Vital Signs - 12hr 09/24/19 09/24/19 09/24/19 06:13 07:41 09:00 Temperature 99.0 F Pulse Rate 66 64 Respiratory 16 18 Rate Blood Pressure 140/76 Blood Pressure [Left] O2 Sat by Pulse 96 97 Oximetry 09/24/19 09/24/19 09:19 12:32 Temperature 100.0 F H 98.7 F Pulse Rate 68 62 Respiratory 103 H 18 Rate Blood Pressure 132/70 129/80 Blood Pressure 132/70 [Left] O2 Sat by Pulse 96 100 Oximetry - Labs CBC & Chem 7: 09/23/19 07:20 09/23/19 07:20 Labs: Abnormal lab results 09/23/19 09/24/19 09/24/19 Range/Units 21:17 08:10 11:37 POC Glucose 120 H 119 H 161 H (70-105)
--- NOTE | 2019-09-24 17:40 | Progress Note ---
Subjective Date of service: 09/24/19 Interval history: went over the CT and there is large extra cranial metal device will try to get hx the ventricles larger thna would be considered acceptable will study further and leave additional comments once I make sense of past hx Objective - Vital Sign Vital Signs - 12hr 09/24/19 09/24/19 09/24/19 06:13 07:41 09:00 Temperature 99.0 F Pulse Rate 66 64 Respiratory 16 18 Rate Blood Pressure 140/76 Blood Pressure [Left] O2 Sat by Pulse 96 97 Oximetry 09/24/19 09/24/19 09:19 12:32 Temperature 100.0 F H 98.7 F Pulse Rate 68 62 Respiratory 103 H 18 Rate Blood Pressure 132/70 129/80 Blood Pressure 132/70 [Left] O2 Sat by Pulse 96 100 Oximetry - Laboratory Findings CBC and BMP: 09/23/19 07:20 09/23/19 07:20 Abnormal Lab Findings: Abnormal Labs 09/23/19 09/23/19 09/23/19 07:20 07:20 08:05 RDW 16.4 H Carbon Dioxide 15 L BUN 7 L Glucose 222 H POC Glucose 194 H Ammonia 09/23/19 09/23/19 09/24/19 09:06 21:17 08:10 RDW Carbon Dioxide BUN Glucose POC Glucose 120 H 119 H Ammonia 68.0 H 09/24/19 09/24/19 11:37 16:23 RDW Carbon Dioxide BUN Glucose POC Glucose 161 H 144 H Ammonia
[2019-09-24] MEDS: ENOXAPARIN 40 MG/0.4 ML INJ SUB-Q SCH (21:58)
--- NOTE | 2019-09-25 08:25 | Progress Note ---
Subjective Date of service: 09/25/19 Interval history: after the EEG can go home I carefully reviewed all his Outpatient seizure medications... these are max'ed out and I would not change them can go home post getting EEG he has implanted brain computer pacemaker I have asked the doctor to contact me that programed the device may be " coding error " Objective - Vital Sign Vital Signs - 12hr 09/24/19 09/25/19 09/25/19 23:16 03:41 07:00 Temperature 98.8 F 99.1 F Pulse Rate 80 73 76 Respiratory 18 18 18 Rate Blood Pressure 155/104 154/105 O2 Sat by Pulse 97 98 Oximetry - Laboratory Findings CBC and BMP: 09/23/19 07:20 09/23/19 07:20 Abnormal Lab Findings: Abnormal Labs 09/23/19 09/23/19 09/23/19 07:20 07:20 08:05 RDW 16.4 H Carbon Dioxide 15 L BUN 7 L Glucose 222 H POC Glucose 194 H Ammonia 09/23/19 09/23/19 09/24/19 09:06 21:17 08:10 RDW Carbon Dioxide BUN Glucose POC Glucose 120 H 119 H Ammonia 68.0 H 09/24/19 09/24/19 09/24/19 11:37 16:23 21:11 RDW Carbon Dioxide BUN Glucose POC Glucose 161 H 144 H 116 H Ammonia
[2019-09-25 09:10] VITALS: BP 138/83
[2019-09-25] MEDS: TOPIRAMATE TAB 200 MG TAB PO SCH (09:21)
[2019-09-25] MEDS: LACOSAMIDE 100 MG TAB PO SCH (09:22)
[2019-09-25] MEDS: OXcarbazepine 300 MG TAB PO SCH (09:22)
[2019-09-25] MEDS: LISINOPRIL 10 MG TAB PO SCH (09:23)
[2019-09-25] MEDS: lamoTRIgine 100 MG TAB PO SCH (09:23)
[2019-09-25] MEDS: POLYETHYLENE GLYCOL 3350 17 GM POWDER PO SCH (09:27)
--- NOTE | 2019-09-25 15:46 | Discharge Summary ---
Providers - Providers Date of Admission: 09/23/19 12:08 Date of discharge: 09/25/19 Attending physician: REYNA RODRIGUEZ 09/24/19 15:20 Consult to Physician [CONS] Routine Comment: Consulting Provider: RENEA VIDAL Physician Instructions: Reason For Exam: seizure Physical Therapy Evaluation and Treat [CONS] Routine Comment: Reason For Exam: placement [facility] MD Hospitalization Condition: Stable Hospital course: Discharge diagnosis and Mx: Seizure disorder with breakthrough episodes. - Continue seizure precautions. Ativan when necessary. Continue AEDs. - neuro consulted -recommended to continue current medications and outpatient follow-up Hypertension. Resume home antihypertensive medications. Diabetes mellitus type 2. Continue Accu-Cheks and sliding scale insulin. Hyperlipidemia. Continue statins. /Hyperammonemia, his LFT stable, placed on lactulose Dvt Px, Lovenox Disposition: TO HOME OR SELFCARE Time spent for discharge: 34 minutes Core Measure Documentation - Palliative Care Palliative Care/ Comfort Measures: Not Applicable - Core Measures Any of the following diagnoses?: none Exam - Physical Exam Narrative exam: General appearance: Present: no distress - EENT Eyes: Present: PERRL ENT: hearing intact, clear oral mucosa - Neck Neck: Present: supple, normal ROM - Respiratory Respiratory effort: normal Respiratory: bilateral: CTA - Cardiovascular Heart Sounds: Present: S1 & S2. Absent: rub, click - Extremities Extremities: pulses symmetrical, No edema Peripheral Pulses: within normal limits - Abdominal General gastrointestinal: Present: soft, non-tender, non-distended, normal bowel sounds Male genitourinary: Present: normal - Integumentary Integumentary: Present: clear, warm, dry - Musculoskeletal Musculoskeletal: gait normal, strength equal bilaterally - Psychiatric Psychiatric: appropriate mood/affect, intact judgment & insight - Neurologic Neurologic: CNII-XII intact, moves all extremities - Constitutional Vitals: Temp Pulse Resp BP Pulse Ox 98.5 F 70 18 138/83 99 09/25/19 07:26 09/25/19 10:00 09/25/19 07:26 09/25/19 09:23 09/25/19 07:26 Plan Activity: advance as tolerated Weight Bearing Status: Non-Weight Bearing Diet: low fat, low salt Follow up with: ADINA GRANADOS MD [Primary Care Provider] - 3-5 Days Prescriptions: Lactulose [Cephulac] 20 gm PO Q6HR 30 Days
[2019-09-25] MEDS ORDERED: LACTULOSE 20 GM/30 ML ORAL LIQD PO SCH (18:00)
--- NOTE | 2019-09-26 00:45 | Consultation ---
HISTORY OF PRESENT ILLNESS: This is a 54-year-old black male that presents to [facility] after having had a general seizure. He has a prior medical history of being on Vimpat 200 mg b.i.d., Lamictal 200 mg b.i.d. and oxcarbazepine 1200 mg b.i.d., and topiramate 200 mg b.i.d. He had been on maximum anticonvulsant therapy and was apparently still having seizures. 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 This was done at the [facility] [place]. I am not sure if this is some experimental device, but this is implanted clinical specialist medical device. I did check his CT. He has enlarged ventricular systems which I suspect is present previously since there are no acute changes. The device is in place. There is no hemorrhage around the device, no tracking, would not indicate infection, edema, or any other pathological process around the pacemaker. PHYSICAL EXAMINATION: The patient at this time is fully alert, appropriate, seizure free. Motor tone normal. Speech clear. Affect appropriate. Oriented. Visual lowe full. Cranial nerves intact. I did palpate the area around the scalp device. It is a benign palpation. I do not find any evidence of fluid, collection of CSF drainage. There is no evidence of infection. IMPRESSION: This patient is on maximum anticonvulsant therapy. Reviewing his anticonvulsants as I have listed above, certainly, this is maxed out therapy. Obviously, some [place] protocol and this is an experimental device in his brain. I certainly would not try to access it or anywhere interfere with his function. If it stops working, I do not know how to restart it and it would be very inappropriate to try to manipulate or interrogate this device using an external interrogative device such as [employer] system. I did advise the patient to contact his [place] physician to speak with me. I do not think any of his medicines are completely out of balance. I would not change any of them. They are all maxed out on the highest dose that is recommended per conventional therapy. Otherwise, the patient is capable of being discharged. JOB# [id number] CRHIS/NTS
== END 2019-09-25 17:25 | disposition home or self-care (01) | DRG 101 ==
LOC: ED 06:54 → 4A 12:08
PROVIDERS: ADMIT Internal Medicine; ATTEND Internal Medicine
DX: G40.901 Epilepsy, unspecified, not intractable, with status epilepticus (principal); E72.20 Disorder of urea cycle metabolism, unspecified; E11.9 Type 2 diabetes mellitus without complications; E78.5 Hyperlipidemia, unspecified; I10 Essential (primary) hypertension; Z95.0 Presence of cardiac pacemaker; Z79.4 Long term (current) use of insulin
CPT/HCPCS: 36415; 70450; 71045; 80048; 80076; 80307; 80320; 81001; 82140; 82962; 84484; 85027; 85610; 85730; 93005; 93010; G0378; A9270-GY; G0480; J1650; J1953; J2060; J7030

== ENCOUNTER 2019-10-27 10:40 | Emergency (ER) | payer MEDICARE ==
[2019-10-27] MEDS: levETIRAcetam 1000 MG/NS 0.75% 1,000 MG/100 ML BAG IV ONE (12:33)
[2019-10-27] MEDS: lamoTRIgine 100 MG TAB PO ONE (12:33)
[2019-10-27 13:48] LABS: Basophils # (Auto) 0.1 K/mm3 (0.0-0.1); Basophils % (Auto) 0.6 % (0.0-1.8); Hematocrit 38.5 % (35.5-45.6); Hemoglobin 12.7 gm/dl (11.8-15.2); Lymphocytes # (Auto) 1.5 K/mm3 (1.2-5.4); Lymphocytes % (Auto) 14.7 % (13.4-35.0); Mean Corpuscular HGB Conc 33 % (32-34); Mean Corpuscular Volume 83 fl (84-94); Monocytes # (Auto) 0.6 K/mm3 (0.0-0.8); Monocytes % (Auto) 5.6 % (0.0-7.3); Platelet Count 252 K/mm3 (140-440); Red Blood Count 4.66 M/mm3 (3.65-5.03); Red Cell Distribution Width 16.3 % (13.2-15.2)
[2019-10-27 14:11] LABS: Alanine Aminotransferase 13 units/L (7-56); Albumin 4.9 g/dL (3.9-5)
[2019-10-27 14:51] LABS: Bilirubin,Direct < 0.2 mg/dL (0-0.2)
[2019-10-27] MEDS: TOPIRAMATE TAB 200 MG TAB PO ONE (14:52)
--- NOTE | 2019-10-27 15:18 | Emergency Department Report ---
ED General Adult HPI - General Chief complaint: Seizure Stated complaint: SEIZURE Time Seen by Provider: 10/27/19 10:59 Source: EMS Mode of arrival: Stretcher Limitations: Altered Mental Status - History of Present Illness Initial comments: This is a 54-year-old man who is rather poor historian. He has a seizure disorder. He has an internal stimulator. The patient states that he is out of his seizure medicine. He arrives with empty bottles of Vimpat and Topamax. These were prescribed at [facility]. He has no other complaints. -: Gradual - Related Data Home Medications Medication Instructions Recorded Confirmed Last Taken Insulin Glargine [Lantus VIAL] 18 units SUB-Q QPM 06/21/19 09/23/19 Unknown Previous Rx's Medication Instructions Recorded Last Taken Type AtorvaSTATin [Lipitor] 40 mg PO QHS #30 tablet 07/28/19 Unknown Rx Lacosamide [Vimpat] 200 mg PO BID #60 tab-cap 07/28/19 Unknown Rx OXcarbazepine [Trileptal] 1,200 mg PO Q12H #30 tab 07/28/19 Unknown Rx OXcarbazepine [Trileptal] 1,200 mg PO Q12HR tablet 07/28/19 Unknown Rx Topiramate [Topamax] 200 mg PO BID #30 tab 07/28/19 Unknown Rx lamoTRIgine [LaMICtal] 200 mg PO BID #60 tab 07/28/19 Unknown Rx lisinopriL [Zestril TAB] 10 mg PO QDAY #30 tab 07/28/19 Unknown Rx metFORMIN [Glucophage] 500 mg PO BIDWM #30 tab 07/28/19 Unknown Rx polyethylene glycoL 3350 [Miralax 17 gm PO QDAY powd.pack 07/28/19 Unknown Rx 3350] Lactulose [Cephulac] 20 gm PO Q6HR 30 Days 09/25/19 Unknown Rx Topiramate [Topamax] 200 mg PO BID #60 tablet 10/27/19 Unknown Rx lamoTRIgine [Lamictal] 200 mg PO BID #60 tablet 10/27/19 Unknown Rx Allergies Allergy/AdvReac Type Severity Reaction Status Date / Time aspirin Allergy Unknown Verified 07/26/19 07:22 ED Review of Systems ROS: Stated complaint: SEIZURE Other details as noted in HPI Constitutional: denies: chills, fever Eyes: denies: eye pain, eye discharge, vision change ENT: denies: ear pain, throat pain Respiratory: denies: cough, shortness of breath, wheezing Cardiovascular: denies: chest pain, palpitations Endocrine: no symptoms reported Gastrointestinal: denies: abdominal pain, nausea, diarrhea Genitourinary: denies: urgency, dysuria Musculoskeletal: denies: back pain, joint swelling, arthralgia Skin: denies: rash, lesions Neurological: denies: headache, weakness, paresthesias Psychiatric: denies: anxiety, depression Hematological/Lymphatic: denies: easy bleeding, easy bruising ED Past Medical Hx - Past Medical History Previous Medical History?: Yes Hx Hypertension: Yes Hx Diabetes: Yes Hx Seizures: Yes (epilepsy) Additional medical history: high cholesterol, encephalapathy - Surgical History Past Surgical History?: Yes 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 - Social History Smoking Status: Unknown if ever smoked Substance Use Type: None - Medications Home Medications: Home Medications Medication Instructions Recorded Confirmed Last Taken Type Insulin Glargine [Lantus VIAL] 18 units SUB-Q QPM 06/21/19 09/23/19 Unknown H istory AtorvaSTATin [Lipitor] 40 mg PO QHS #30 tablet 07/28/19 09/23/19 Unknown Rx Lacosamide [Vimpat] 200 mg PO BID #60 tab-cap 07/28/19 09/23/19 Unknown Rx OXcarbazepine [Trileptal] 1,200 mg PO Q12H #30 tab 07/28/19 09/23/19 Unknown Rx OXcarbazepine [Trileptal] 1,200 mg PO Q12HR tablet 07/28/19 09/23/19 Unknown Rx Topiramate [Topamax] 200 mg PO BID #30 tab 07/28/19 09/23/19 Unknown Rx lamoTRIgine [LaMICtal] 200 mg PO BID #60 tab 07/28/19 09/23/19 Unknown Rx lisinopriL [Zestril TAB] 10 mg PO QDAY #30 tab 07/28/19 09/23/19 Unknown Rx metFORMIN [Glucophage] 500 mg PO BIDWM #30 tab 07/28/19 09/23/19 Unknown Rx polyethylene glycoL 3350 [Miralax 17 gm PO QDAY powd.pack 07/28/19 09/23/19 Unknown Rx 3350] Lactulose [Cephulac] 20 gm PO Q6HR 30 Days 09/25/19 Unknown Rx Topiramate [Topamax] 200 mg PO BID #60 tablet 10/27/19 Unknown Rx lamoTRIgine [Lamictal] 200 mg PO BID #60 tablet 10/27/19 Unknown Rx ED Physical Exam - General Limitations: No Limitations General appearance: alert, in no apparent distress - Head Head exam: Present: normocephalic, other (Previous surgical scar) - Eye Eye exam: Present: normal appearance - ENT ENT exam: Present: mucous membranes moist - Neck Neck exam: Present: normal inspection - Respiratory Respiratory exam: Present: normal lung sounds bilaterally. Absent: respiratory distress - Cardiovascular Cardiovascular Exam: Present: regular rate, normal rhythm. Absent: systolic murmur, diastolic murmur, rubs, gallop - GI/Abdominal GI/Abdominal exam: Present: soft, normal bowel sounds. Absent: distended, tenderness, guarding, rebound - Rectal Rectal exam: Present: deferred - Extremities Exam Extremities exam: Present: normal inspection - Back Exam Back exam: Present: normal inspection - Neurological Exam Neurological exam: Present: alert, oriented X3, CN II-XII intact. Absent: motor sensory deficit - Psychiatric Psychiatric exam: Present: normal mood, flat affect - Skin Skin exam: Present: warm, dry, intact, normal color. Absent: rash ED Course Vital Signs 10/27/19 10:52 Temperature 98.9 F Pulse Rate 89 Respiratory 18 Rate Blood Pressure 175/99 O2 Sat by Pulse 98 Oximetry - Reevaluation(s) Reevaluation #1: Patient reportedly had 2 seizures today. Therefore he was given a gram of Keppra. He was observed. He had no further seizure activity. He will be discharged with his family. His Vimpat and Topamax will be reissued. He is referred to the [facility] and a neurologist. 10/27/19 15:31 ED Medical Decision Making - Lab Data Result diagrams: 10/27/19 11:56 Laboratory Results - last 24 hr 10/27/19 10/27/19 11:56 11:56 WBC 9.9 RBC 4.66 Hgb 12.7 Hct 38.5 MCV 83 L MCH 27 L MCHC 33 RDW 16.3 H Plt Count 252 Lymph % (Auto) 14.7 [place] % (Auto) 5.6 Eos % (Auto) 0.0 Baso % (Auto) 0.6 Lymph # 1.5 [place] # 0.6 Eos # 0.0 Baso # 0.1 Seg Neutrophils % 79.1 H Seg Neutrophils # 7.8 H Total Bilirubin 0.40 Direct Bilirubin < 0.2 Indirect Bilirubin 0.2 AST 11 ALT 13 Alkaline Phosphatase 139 H Total Protein 7.8 Albumin 4.9 Albumin/Globulin Ratio 1.7 Critical care attestation.: If time is entered above; I have spent that time in minutes in the direct care of this critically ill patient, excluding procedure time. ED Disposition Clinical Impression: Seizure disorder, Recurrent seizures Disposition: TO HOME OR SELFCARE Is pt being admited?: No Does the pt Need Aspirin: No Condition: Stable Instructions: Recurrent Seizures Adult (ED), Epilepsy (ED) Additional Instructions: Further care through the [facility] or the [facility] if you are followed there. They can coordinate with local neurologist. Prescriptions: lamoTRIgine [Lamictal] 200 mg PO BID #60 tablet Topiramate [Topamax] 200 mg PO BID #60 tablet Referrals: PRIMARY CARE, [Primary Care Provider] - 3-5 Days Time of Disposition: 15:32
[2019-10-27 15:37] LABS: BUN/Creatinine Ratio 11; Blood Urea Nitrogen 8 mg/dL (9-20); Calcium 9.6 mg/dL (8.4-10.2); Hemolysis Index 5
[2019-10-27 16:10] VITALS: BP 161/95
== END 2019-10-27 16:31 | disposition home or self-care (01) ==
LOC: ED 10:40
DX: G40.909 Epilepsy, unspecified, not intractable, without status epilepticus (principal); I10 Essential (primary) hypertension; E11.9 Type 2 diabetes mellitus without complications; Z79.899 Other long term (current) drug therapy; Z98.890 Other specified postprocedural states; Z88.6 Allergy status to analgesic agent
CPT/HCPCS: 36415; 80048; 80076; 85025; 96365; 99284; J1953

== ENCOUNTER 2019-10-30 21:25 | Emergency (ER) | payer MEDICARE ==
[2019-10-30 21:58] VITALS: BP 166/95
--- NOTE | 2019-10-30 22:45 | Emergency Department Report ---
{null, ED Seizure HPI - General Chief Complaint: Seizure Stated Complaint: SEIZURE Time Seen by Provider: 10/30/19 22:22 Source: patient, EMS Mode of arrival: Stretcher Limitations: No Limitations - History of Present Illness Initial Comments: 54-year-old male with past medical history of diabetes and seizures, presents to ED after having a seizure at home tonight. EMS was called. Upon their arrival patient was back to baseline. Patient currently only reports a mild headache. He was recently seen 3 days ago for seizure. The chart states that patient had run out of his medication, but was given a refill upon discharge. Patient reports that he has been taking his medication. MD Complaint: seizure -: This evening Witnessed:: Yes Seizure History: known seizure disorder Place: home Possible Precipitating Event: none Associated Symptoms: denies: chest pain, fever/chills, shortness of breath Treatments Prior to Arrival: none - Related Data Home Medications Medication Instructions Recorded Confirmed Last Taken Insulin Glargine [Lantus VIAL] 18 units SUB-Q QPM 06/21/19 09/23/19 Unknown Previous Rx's Medication Instructions Recorded Last Taken Type AtorvaSTATin [Lipitor] 40 mg PO QHS #30 tablet 07/28/19 Unknown Rx Lacosamide [Vimpat] 200 mg PO BID #60 tab-cap 07/28/19 Unknown Rx OXcarbazepine [Trileptal] 1,200 mg PO Q12H #30 tab 07/28/19 Unknown Rx OXcarbazepine [Trileptal] 1,200 mg PO Q12HR tablet 07/28/19 Unknown Rx Topiramate [Topamax] 200 mg PO BID #30 tab 07/28/19 Unknown Rx lamoTRIgine [LaMICtal] 200 mg PO BID #60 tab 07/28/19 Unknown Rx lisinopriL [Zestril TAB] 10 mg PO QDAY #30 tab 07/28/19 Unknown Rx metFORMIN [Glucophage] 500 mg PO BIDWM #30 tab 07/28/19 Unknown Rx polyethylene glycoL 3350 [Miralax 17 gm PO QDAY powd.pack 07/28/19 Unknown Rx 3350] Lactulose [Cephulac] 20 gm PO Q6HR 30 Days 09/25/19 Unknown Rx Topiramate [Topamax] 200 mg PO BID #60 tablet 10/27/19 Unknown Rx lamoTRIgine [Lamictal] 200 mg PO BID #60 tablet 10/27/19 Unknown Rx Allergies Allergy/AdvReac Type Severity Reaction Status Date / Time aspirin Allergy Unknown Verified 07/26/19 07:22 ED Review of Systems ROS: Stated complaint: SEIZURE Other details as noted in HPI Comment: All other systems reviewed and negative Constitutional: denies: chills, fever Respiratory: denies: cough, shortness of breath Cardiovascular: denies: chest pain Gastrointestinal: denies: abdominal pain, vomiting, diarrhea Neurological: headache. 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 - Social History Smoking Status: Never Smoker Substance Use Type: None - Medications Home Medications: Home Medications Medication Instructions Recorded Confirmed Last Taken Type Insulin Glargine [Lantus VIAL] 18 units SUB-Q QPM 06/21/19 09/23/19 Unknown History AtorvaSTATin [Lipitor] 40 mg PO QHS #30 tablet 07/28/19 09/23/19 Unknown Rx Lacosamide [Vimpat] 200 mg PO BID #60 tab-cap 07/28/19 09/23/19 Unknown Rx OXcarbazepine [Trileptal] 1,200 mg PO Q12H #30 tab 07/28/19 09/23/19 Unknown Rx OXcarbazepine [Trileptal] 1,200 mg PO Q12HR tablet 07/28/19 09/23/19 Unknown Rx Topiramate [Topamax] 200 mg PO BID #30 tab 07/28/19 09/23/19 Unknown Rx lamoTRIgine [LaMICtal] 200 mg PO BID #60 tab 07/28/19 09/23/19 Unknown Rx lisinopriL [Zestril TAB] 10 mg PO QDAY #30 tab 07/28/19 09/23/19 Unknown Rx metFORMIN [Glucophage] 500 mg PO BIDWM #30 tab 07/28/19 09/23/19 Unknown Rx polyethylene glycoL 3350 [Miralax 17 gm PO QDAY powd.pack 07/28/19 09/23/19 Unknown Rx 3350] Lactulose [Cephulac] 20 gm PO Q6HR 30 Days 09/25/19 Unknown Rx Topiramate [Topamax] 200 mg PO BID #60 tablet 10/27/19 Unknown Rx lamoTRIgine [Lamictal] 200 mg PO BID #60 tablet 10/27/19 Unknown Rx ED Physical Exam - General Limitations: No Limitations General appearance: alert, in no apparent distress - Head Head exam: Present: atraumatic, normocephalic - Eye Eye exam: Present: normal appearance, PERRL, EOMI - ENT ENT exam: Present: mucous membranes moist - Neck Neck exam: Present: normal inspection, full ROM - Respiratory Respiratory exam: Present: normal lung sounds bilaterally. Absent: respiratory distress - Cardiovascular Cardiovascular Exam: Present: regular rate, normal rhythm - GI/Abdominal GI/Abdominal exam: Present: soft. Absent: distended, tenderness - Extremities Exam Extremities exam: Present: normal inspection - Neurological Exam Neurological exam: Present: alert, oriented X3, CN II-XII intact. Absent: motor sensory deficit - Psychiatric Psychiatric exam: Present: normal affect, normal mood - Skin Skin exam: Present: warm, dry, intact, normal color ED Course Vital Signs 10/30/19 10/31/19 21:56 04:10 Temperature 98.6 F 98.6 F Pulse Rate 91 H 91 H Respiratory 16 16 Rate Blood Pressure 166/95 O2 Sat by Pulse 98 98 Oximetry ED Medical Decision Making - Lab Data Result diagrams: 10/30/19 23:14 10/30/19 23:14 - Medical Decision Making Labs normal. No seizures here in ED. No neuro deficits. Patient seen for same 3 days ago and given prescriptions for his medications. Patient advised to follow-up with his neurologist at [facility]. - Differential Diagnosis seizure Critical care attestation.: If time is entered above; I have spent that time in minutes in the direct care of this critically ill patient, excluding procedure time. ED Disposition Clinical Impression: Seizure Disposition: DC-01 TO HOME OR SELFCARE Is pt being admited?: No Condition: Stable Instructions: Recurrent Seizures Adult (ED) Additional Instructions: Call your neurologist at [facility] tomorrow to make an appointment for follow-up. Referrals: FEI CROCKER MD [Referring] - 3-5 Days Time of Disposition: 00:20 }
[2019-10-30 23:33] LABS: Basophils % (Auto) 0.6 % (0.0-1.8); Eosinophils # (Auto) 0.1 K/mm3 (0.0-0.4); Eosinophils % (Auto) 0.8 % (0.0-4.3); Hematocrit 37.3 % (35.5-45.6); Hemoglobin 12.5 gm/dl (11.8-15.2); Lymphocytes # (Auto) 1.6 K/mm3 (1.2-5.4); Lymphocytes % (Auto) 20.8 % (13.4-35.0); Mean Corpuscular HGB Conc 33 % (32-34); Mean Corpuscular Volume 83 fl (84-94); Monocytes # (Auto) 0.7 K/mm3 (0.0-0.8); Platelet Count 206 K/mm3 (140-440); Red Blood Count 4.52 M/mm3 (3.65-5.03)
[2019-10-30 23:56] LABS: BUN/Creatinine Ratio 9; Blood Urea Nitrogen 8 mg/dL (9-20); Calcium 9.5 mg/dL (8.4-10.2)
[2019-10-30 23:57] LABS: Hemolysis Index 3
== END 2019-10-31 02:00 | disposition home or self-care (01) ==
LOC: ED 21:25
DX: G40.909 Epilepsy, unspecified, not intractable, without status epilepticus (principal); I10 Essential (primary) hypertension; E11.9 Type 2 diabetes mellitus without complications; E78.00 Pure hypercholesterolemia, unspecified; Z79.899 Other long term (current) drug therapy
CPT/HCPCS: 36415; 80048; 85025

== ENCOUNTER 2020-01-27 17:44 | Emergency (ER) | payer MEDICARE ==
[2020-01-27] MEDS ORDERED: levETIRAcetam 1000 MG/NS 0.75% 1,000 MG/100 ML BAG IV ONE (18:26)
[2020-01-27] MEDS ORDERED: SODIUM CHLORIDE 0.9% 1000 ML 1,000 ML IV ONE (18:27)
[2020-01-27 19:13] LABS: Basophils % (Auto) 0.1 % (0.0-1.8); Eosinophils % (Auto) 0.3 % (0.0-4.3); Lymphocytes # (Auto) 1.3 K/mm3 (1.2-5.4); Lymphocytes % (Auto) 31.1 % (13.4-35.0); Mean Corpuscular HGB Conc 26 % (32-34); Mean Corpuscular Volume 88 fl (84-94); Monocytes # (Auto) 0.4 K/mm3 (0.0-0.8); Monocytes % (Auto) 8.4 % (0.0-7.3); Platelet Count 152 K/mm3 (140-440); Red Blood Count 4.29 M/mm3 (3.65-5.03); Red Cell Distribution Width 17.3 % (13.2-15.2)
[2020-01-27 19:15] LABS: Hematocrit 37.7 % (35.5-45.6); Hemoglobin 9.9 gm/dl (11.8-15.2)
[2020-01-27 19:25] LABS: Calcium 8.9 mg/dL (8.4-10.2)
--- NOTE | 2020-01-27 19:38 | Emergency Department Report ---
ED Seizure HPI - General Chief Complaint: Syncope Stated Complaint: SEIZURE Time Seen by Provider: 01/27/20 18:15 Source: patient, EMS Mode of arrival: Stretcher Limitations: No Limitations - History of Present Illness Initial Comments: Patient is a 54-year-old F [place] male with a past medical history of seizures who is here secondary to having a seizure. Patient states he believes he is been compliant with his medications. Patient was here last week and had refills of his Topamax and Keppra. Patient had a seizure today. Patient showing some mild confusion and is postictal on arrival. Patient is stated he had no pain and no other complaints. - Related Data Home Medications Medication Instructions Recorded Confirmed Last Taken Insulin Glargine [Lantus VIAL] 18 units SUB-Q QPM 06/21/19 01/23/20 Unknown Esomeprazole Magnesium [NexIUM] 40 mg PO QDAY 01/23/20 01/23/20 Unknown Ferrous Sulfate [Feosol 325 MG tab] 1 tab PO TID 01/23/20 01/23/20 Unknown Meloxicam [Mobic] 15 mg PO DAILY PRN 01/23/20 01/23/20 Unknown Metformin HCl [metFORMIN] 1,000 mg PO BIDWM 01/23/20 01/23/20 Unknown OLANZapine [Zyprexa] 15 mg PO QHS 01/23/20 01/23/20 Unknown lisinopriL [Zestril TAB] 1 tab PO DAILY 01/23/20 01/23/20 Unknown Previous Rx's Medication Instructions Recorded Last Taken Type AtorvaSTATin [Lipitor] 40 mg PO QHS #30 tablet 07/28/19 Unknown Rx OXcarbazepine [Trileptal] 1,200 mg PO Q12H #30 tab 07/28/19 Unknown Rx Topiramate [Topamax] 200 mg PO BID #60 tablet 10/27/19 Unknown Rx lamoTRIgine [Lamictal] 200 mg PO BID #60 tablet 10/27/19 Unknown Rx levETIRAcetam [Keppra TAB] 500 mg PO BID #60 tablet 01/23/20 Unknown Rx Allergies Allergy/AdvReac Type Severity Reaction Status Date / Time aspirin Allergy Unknown Verified 01/23/20 10:44 ED Review of Systems ROS: Stated complaint: SEIZURE Other details as noted in HPI Comment: All other systems reviewed and negative ED Past Medical Hx - Past Medical History Previous Medical History?: Yes Hx Hypertension: Yes Hx Diabetes: Yes Hx Arthritis: Yes Hx Seizures: Yes (epilepsy) Additional medical history: high cholesterol, encephalapathy - Surgical History 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 - Social History Smoking Status: Never Smoker Substance Use Type: None - Medications Home Medications: Home Medications Medication Instructions Recorded Confirmed Last Taken Type Insulin Glargine [Lantus VIAL] 18 units SUB-Q QPM 06/21/19 01/23/20 Unknown History AtorvaSTATin [Lipitor] 40 mg PO QHS #30 tablet 07/28/19 01/23/20 Unknown Rx OXcarbazepine [Trileptal] 1,200 mg PO Q12H #30 tab 07/28/19 01/23/20 Unknown Rx Topiramate [Topamax] 200 mg PO BID #60 tablet 10/27/19 01/23/20 Unknown Rx lamoTRIgine [Lamictal] 200 mg PO BID #60 tablet 10/27/19 Unknown Rx Esomeprazole Magnesium [NexIUM] 40 mg PO QDAY 01/23/20 01/23/20 Unknown History Ferrous Sulfate [Feosol 325 MG tab] 1 tab PO TID 01/23/20 01/23/20 Unknown History Meloxicam [Mobic] 15 mg PO DAILY PRN 01/23/20 01/23/20 Unknown History Metformin HCl [metFORMIN] 1,000 mg PO BIDWM 01/23/20 01/23/20 Unknown History OLANZapine [Zyprexa] 15 mg PO QHS 01/23/20 01/23/20 Unknown History levETIRAcetam [Keppra TAB] 500 mg PO BID #60 tablet 01/23/20 Unknown Rx lisinopriL [Zestril TAB] 1 tab PO DAILY 01/23/20 01/23/20 Unknown History ED Physical Exam - General Limitations: No Limitations General appearance: alert, in no apparent distress - Head Head exam: Present: atraumatic, normocephalic - Eye Eye exam: Present: normal appearance, PERRL, EOMI - ENT ENT exam: Present: mucous membranes moist - Neck Neck exam: Present: normal inspection - Respiratory Respiratory exam: Present: normal lung sounds bilaterally. Absent: respiratory distress, wheezes, rales, rhonchi - Cardiovascular Cardiovascular Exam: Present: regular rate, normal rhythm. Absent: systolic murmur, diastolic murmur, rubs, gallop - GI/Abdominal GI/Abdominal exam: Present: soft, normal bowel sounds - Rectal Rectal exam: Present: deferred - Extremities Exam Extremities exam: Present: normal inspection - Back Exam Back exam: Present: normal inspection - Neurological Exam Neurological exam: Present: alert, oriented X3 - Psychiatric Psychiatric exam: Present: normal affect, normal mood - Skin Skin exam: Present: warm, dry, intact, normal color. Absent: rash ED Course Vital Signs 01/27/20 01/27/20 01/27/20 18:05 18:06 18:07 Temperature 98.2 F Pulse Rate 90 74 71 Respiratory 10 L 23 18 Rate Blood Pressure 104/66 104/66 Blood Pressure [Left] O2 Sat by Pulse 100 100 Oximetry 01/27/20 01/27/20 01/27/20 18:09 18:11 18:13 Temperature Pulse Rate 73 81 84 Respiratory 25 H 23 23 Rate Blood Pressure 104/66 104/66 104/66 Blood Pressure [Left] O2 Sat by Pulse 100 100 100 Oximetry 01/27/20 01/27/20 01/27/20 18:15 18:17 18:19 Temperature Pulse Rate 74 74 73 Respiratory 17 17 20 Rate Blood Pressure 88/58 88/58 88/58 Blood Pressure [Left] O2 Sat by Pulse 100 100 Oximetry 01/27/20 01/27/20 01/27/20 18:21 18:23 18:25 Temperature Pulse Rate 73 73 72 Respiratory 19 13 16 Rate Blood Pressure 88/58 88/58 99/64 Blood Pressure [Left] O2 Sat by Pulse 100 100 Oximetry 01/27/20 01/27/20 01/27/20 18:27 18:29 18:30 Temperature Pulse Rate 72 85 72 Respiratory 23 21 21 Rate Blood Pressure 99/64 99/64 94/58 Blood Pressure [Left] O2 Sat by Pulse 100 100 100 Oximetry 01/27/20 01/27/20 01/27/20 18:31 18:33 18:35 Temperature Pulse Rate 74 73 72 Respiratory 25 H 19 19 Rate Blood Pressure 94/58 94/58 94/58 Blood Pressure [Left] O2 Sat by Pulse 100 100 100 Oximetry 01/27/20 01/27/20 01/27/20 18:37 18:39 18:41 Temperature Pulse Rate 77 72 72 Respiratory 24 18 14 Rate Blood Pressure 94/58 94/58 94/58 Blood Pressure [Left] O2 Sat by Pulse 100 100 100 Oximetry 01/27/20 01/27/20 01/27/20 18:43 18:45 18:47 Temperature Pulse Rate 77 94 H 82 Respiratory 21 17 23 Rate Blood Pressure 94/58 94/58 94/58 Blood Pressure [Left] O2 Sat by Pulse 100 98 100 Oximetry 01/27/20 01/27/20 01/27/20 18:49 18:51 18:53 Temperature Pulse Rate 78 83 71 Respiratory 25 H 11 L 12 Rate Blood Pressure 94/58 94/58 94/58 Blood Pressure [Left] O2 Sat by Pulse 100 100 100 Oximetry 01/27/20 01/27/20 01/27/20 18:55 18:57 18:59 Temperature Pulse Rate 71 70 71 Respiratory 18 20 11 L Rate Blood Pressure 94/58 94/58 94/58 Blood Pressure [Left] O2 Sat by Pulse 100 100 100 Oximetry 01/27/20 19:13 Temperature Pulse Rate 73 Respiratory 17 Rate Blood Pressure Blood Pressure 104/64 [Left] O2 Sat by Pulse 100 Oximetry ED Medical Decision Making - Lab Data Result diagrams: 01/27/20 18:41 01/27/20 18:41 - Medical Decision Making Patient loaded with Keppra and had he had no further seizure activity here in emergency department. He is no longer postictal at the time of discharge. Critical care attestation.: If time is entered above; I have spent that time in minutes in the direct care of this critically ill patient, excluding procedure time. ED Disposition Clinical Impression: Breakthrough seizure Disposition: DC-01 TO HOME OR SELFCARE Is pt being admited?: No Does the pt Need Aspirin: No Condition: Stable Instructions: Recurrent Seizures Adult (ED) Additional Instructions: Please continue with your seizure medications as prescribed Referrals: RENEA VIDAL MD [Staff Physician] - 3-5 Days Time of Disposition: 19:37
[2020-01-27 22:05] VITALS: BP 111/76
== END 2020-01-27 22:30 | disposition home or self-care (01) ==
LOC: ED 17:44
DX: G40.909 Epilepsy, unspecified, not intractable, without status epilepticus (principal); I10 Essential (primary) hypertension; M19.90 Unspecified osteoarthritis, unspecified site; Z79.4 Long term (current) use of insulin; Z79.899 Other long term (current) drug therapy; Z88.6 Allergy status to analgesic agent
CPT/HCPCS: 36415; 80048; 85025; 96365; 96366; 99283; J1953; J7030

== ENCOUNTER 2020-02-10 21:37 | Observation (INO) | payer MEDICARE ==
[2020-02-10] MEDS ORDERED: levETIRAcetam 1000 MG/NS 0.75% 1,000 MG/100 ML BAG IV ONE (21:47)
[2020-02-10] MEDS ORDERED: TOPIRAMATE TAB 200 MG TAB PO ONE (21:49)
[2020-02-10] MEDS ORDERED: SODIUM CHLORIDE 0.9% 500 ML 500 ML IV ONE (21:50)
--- NOTE | 2020-02-10 21:50 | Emergency Department Report ---
ED General Adult HPI - General Chief complaint: Seizure Stated complaint: SEIZURES/AMS PUI?: No Time Seen by Provider: 02/10/20 21:44 Source: EMS (Verbal report received from emergency medical services. EMS documentation not available at time of chart dictation ), RN notes reviewed, old records reviewed Mode of arrival: Stretcher Limitations: Altered Mental Status, Physical Limitation - History of Present Illness Initial comments: Patient is a 54-year-old gentleman. He has a history of seizure disorder, deep brain stimulator placement, diabetes, hypertension, high cholesterol, previous history of hyperammonemia, previous history of admission to this hospital for breakthrough seizures. He is brought to the hospital by emergency medical services with a complaint breakthrough seizures. The patient is awake, but postictal, following commands. He makes no complaint of physical pain. He is on multiple antiepileptic drug medications. Uncertain if compliant with medications. He is not accompanied by friends or family at this time for additional information or collateral information Patient himself is not able to describe exacerbating or relieving factors in the field. Patient was given intranasal benzodiazepine in the field, which terminated the event. As per verbal report from EMS, patient may have had at least 4 seizures today. -: Sudden Quality: constant Consistency: other Improves with: other Worsens with: other Associated Symptoms: other - Related Data Home Medications Medication Instructions Recorded Confirmed Last Taken Insulin Glargine [Lantus VIAL] 18 units SUB-Q QPM 06/21/19 01/23/20 Unknown Esomeprazole Magnesium [NexIUM] 40 mg PO QDAY 01/23/20 01/23/20 Unknown Ferrous Sulfate [Feosol 325 MG tab] 1 tab PO TID 01/23/20 01/23/20 Unknown Meloxicam [Mobic] 15 mg PO DAILY PRN 01/23/20 01/23/20 Unknown Metformin HCl [metFORMIN] 1,000 mg PO BIDWM 01/23/20 01/23/20 Unknown OLANZapine [Zyprexa] 15 mg PO QHS 01/23/20 01/23/20 Unknown lisinopriL [Zestril TAB] 1 tab PO DAILY 01/23/20 01/23/20 Unknown Previous Rx's Medication Instructions Recorded Last Taken Type AtorvaSTATin [Lipitor] 40 mg PO QHS #30 tablet 07/28/19 Unknown Rx OXcarbazepine [Trileptal] 1,200 mg PO Q12H #30 tab 07/28/19 Unknown Rx Topiramate [Topamax] 200 mg PO BID #60 tablet 10/27/19 Unknown Rx lamoTRIgine [Lamictal] 200 mg PO BID #60 tablet 10/27/19 Unknown Rx levETIRAcetam [Keppra TAB] 500 mg PO BID #60 tablet 01/23/20 Unknown Rx Allergies Allergy/AdvReac Type Severity Reaction Status Date / Time aspirin Allergy Unknown Verified 01/23/20 10:44 ED Review of Systems ROS: Stated complaint: SEIZURES/AMS Other details as noted in HPI Comment: Unobtainable due to pts medical conditions ED Past Medical Hx - Past Medical History Hx Hypertension: Yes Hx Diabetes: Yes Hx Arthritis: Yes Hx Seizures: Yes (epilepsy) Additional medical history: high cholesterol, encephalapathy - Surgical History 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 - Social History Smoking Status: Never Smoker Substance Use Type: None - Medications Home Medications: Home Medications Medication Instructions Recorded Confirmed Last Taken Type Insulin Glargine [Lantus VIAL] 18 units SUB-Q QPM 06/21/19 01/23/20 Unknown History AtorvaSTATin [Lipitor] 40 mg PO QHS #30 tablet 07/28/19 01/23/20 Unknown Rx OXcarbazepine [Trileptal] 1,200 mg PO Q12H #30 tab 07/28/19 01/23/20 Unknown Rx Topiramate [Topamax] 200 mg PO BID #60 tablet 10/27/19 01/23/20 Unknown Rx lamoTRIgine [Lamictal] 200 mg PO BID #60 tablet 10/27/19 Unknown Rx Esomeprazole Magnesium [NexIUM] 40 mg PO QDAY 01/23/20 01/23/20 Unknown History Ferrous Sulfate [Feosol 325 MG tab] 1 tab PO TID 01/23/20 01/23/20 Unknown History Meloxicam [Mobic] 15 mg PO DAILY PRN 01/23/20 01/23/20 Unknown History Metformin HCl [metFORMIN] 1,000 mg PO BIDWM 01/23/20 01/23/20 Unknown History OLANZapine [Zyprexa] 15 mg PO QHS 01/23/20 01/23/20 Unknown History levETIRAcetam [Keppra TAB] 500 mg PO BID #60 tablet 01/23/20 Unknown Rx lisinopriL [Zestril TAB] 1 tab PO DAILY 01/23/20 01/23/20 Unknown History ED Physical Exam - General Limitations: Other (Patient is postictal and confused) General appearance: anxious, in distress - Head Head exam: Present: atraumatic, normocephalic - Eye Eye exam: Present: normal appearance, PERRL, EOMI - ENT ENT exam: Present: normal exam, normal orophraynx, mucous membranes moist, normal external ear exam - Neck Neck exam: Present: normal inspection, full ROM. Absent: tenderness, meningismus - Respiratory Respiratory exam: Present: normal lung sounds bilaterally. Absent: respiratory distress - Cardiovascular Cardiovascular Exam: Present: tachycardia, irregular rhythm. Absent: systolic murmur, diastolic murmur, rubs, gallop - GI/Abdominal GI/Abdominal exam: Present: soft. Absent: distended, tenderness, guarding, rebound, rigid, pulsatile mass - Rectal Rectal exam: Present: deferred - Extremities Exam Extremities exam: Present: normal inspection, full ROM, other (2+ pulses noted in the bilateral upper and lower extremities. There is no palpable cord. negative Homans sign. Muscular compartments are soft. The pelvis is stable.). Absent: pedal edema, calf tenderness - Back Exam Back exam: Present: normal inspection. Absent: tenderness, CVA tenderness (R), CVA tenderness (L), paraspinal tenderness, vertebral tenderness - Neurological Exam Neurological exam: Present: altered, other (The patient is awake. The patient is moving 4 extremities. The patient will follow commands. Detailed neurologic examination not completed secondary to postictal state) - Psychiatric Psychiatric exam: Present: anxious - Skin Skin exam: Present: warm, dry, intact, normal color. Absent: rash ED Course Vital Signs 02/10/20 02/10/20 02/10/20 21:40 21:46 21:49 Temperature 97.1 F L Pulse Rate 62 89 79 Respiratory 31 H 22 16 Rate Blood Pressure 143/100 Blood Pressure 143/100 [Right] O2 Sat by Pulse 100 100 100 Oximetry 02/10/20 02/10/20 02/10/20 22:00 22:16 22:30 Temperature Pulse Rate 75 109 H 72 Respiratory 26 H 24 21 Rate Blood Pressure 143/100 162/86 162/86 Blood Pressure [Right] O2 Sat by Pulse 100 100 94 Oximetry 02/10/20 02/10/20 02/10/20 22:46 23:00 23:01 Temperature Pulse Rate 107 H 74 Respiratory 32 H 29 H Rate Blood Pressure 162/93 162/93 164/87 Blood Pressure [Right] O2 Sat by Pulse 98 95 Oximetry 02/10/20 02/10/20 02/11/20 23:34 23:46 00:00 Temperature Pulse Rate Respiratory Rate Blood Pressure 164/87 164/87 164/87 Blood Pressure [Right] O2 Sat by Pulse 94 95 98 Oximetry 02/11/20 02/11/20 02/11/20 00:04 00:16 00:38 Temperature Pulse Rate 74 88 Respiratory 17 22 Rate Blood Pressure 164/87 164/87 164/87 Blood Pressure [Right] O2 Sat by Pulse 95 99 98 Oximetry 02/11/20 02/11/20 02/11/20 00:40 00:44 00:46 Temperature Pulse Rate 142 H 150 H Respiratory 14 37 H Rate Blood Pressure 171/102 Blood Pressure [Right] O2 Sat by Pulse 98 98 Oximetry 02/11/20 02/11/20 02/11/20 01:00 01:16 01:29 Temperature Pulse Rate 139 H 80 120 H Respiratory 27 H 17 Rate Blood Pressure 171/102 150/113 Blood Pressure [Right] O2 Sat by Pulse 100 99 Oximetry 02/11/20 02/11/20 02/11/20 01:30 01:46 02:00 Temperature Pulse Rate 83 97 H 82 Respiratory 56 H 23 17 Rate Blood Pressure 150/113 150/113 150/113 Blood Pressure [Right] O2 Sat by Pulse 97 97 99 Oximetry 02/11/20 02/11/20 02/11/20 02:16 02:30 02:46 Temperature Pulse Rate 69 75 Respiratory 28 H 26 H 18 Rate Blood Pressure 171/91 171/91 171/91 Blood Pressure [Right] O2 Sat by Pulse 98 98 99 Oximetry 02/11/20 02/11/20 02/11/20 02:48 03:00 03:16 Temperature 97.8 F Pulse Rate 69 73 Respiratory 11 L 13 Rate Blood Pressure 171/91 161/95 Blood Pressure [Right] O2 Sat by Pulse 98 98 Oximetry 02/11/20 03:30 Temperature Pulse Rate 70 Respiratory 19 Rate Blood Pressure 161/95 Blood Pressure [Right] O2 Sat by Pulse 99 Oximetry - Reevaluation(s) Reevaluation #1: 02/10/20 22:13 Differential diagnosis, including but not limited to: Pneumonia, urinary tract infection, intracranial lesion, breakthrough seizure, new onset a flutter, structural cardiac disease, electrolyte derangement, thyroid derangement Assessment and plan: 54-year-old gentleman who is awake, protecting his airway, moving 4 extremities, without respiratory distress, normal Accu-Chek, with what appears to be new onset a flutter, and multiple breakthrough seizures, at this point in time clinically resolved. We will place the patient on seizure precautions, obtain appropriate laboratory studies, urinalysis, noncontrast CT scan of the brain, x-ray of the chest, and reassess. Reevaluation #2: 02/10/20 23:[address] scanner, and he is agitated, and not cooperating with scan. Ativan medication is ordered to facilitate acquisition of diagnostics Reevaluation #3: 02/10/20 23:41 After an additional 4 mg of Ativan, patient went back to CT scanner, where he remained agitated, and they were not able to obtain diagnostic imaging. The patient is awake, but altered, and at this point in time does not have decision-making capacity. He requires emergent acquisition of diagnostics to exclude time sensitive diagnoses. He does not meet criteria or require intubation at this time. Therefore, I have emergently and administratively consented this patient for moderate sedation with ketamine, to obtain time sensitive diagnostics. Reevaluation #4: 02/11/20 00:42 CT scan brain and chest completed successfully after ketamine sedation. Patient tolerated the procedure well without difficulty. Reevaluation #5: 02/11/20 01:15 CT scan of the brain negative for acute findings. CT scan of the chest suggests multifocal pneumonia. Isolation precautions ordered. COVID labs ordered. IV fluids ordered. Diltiazem ordered. Lovenox ordered. Hospital physician, Dr. Earl Blake to admit he requests icu placement 02/11/20 01:28 - Moderate Sedation Indications: diagnostic imaging proced ASA Class: III Mallampati Airway Score: 2 Preparation: quality assurance monitor chassis applied, pulse oximeter, capnometry used, supplemental O2 applied, suction/airway equipment at bedside Ketamine: IV Ketamine Dose: 150 Complications: none Interventions: oxygen applied Patient Tolerated Procedure: well Additional Comments: Patient altered, and is not able to tell me the last oral intake or time of oral intake. ED Medical Decision Making - Lab Data Result diagrams: 02/10/20 21:51 02/11/20 01:44 Vital Signs 02/10/20 21:49 Temperature 97.1 F L Pulse Rate 79 Respiratory 16 Rate Blood Pressure 143/100 [Right] O2 Sat by Pulse 100 Oximetry - EKG Data -: EKG Interpreted by Me - EKG Data 02/10/20 22:13 The EKG today shows a flutter, variable atrial to ventricular conduction, PVCs, QTC prolonged, motion artifact, not a STEMI, appears to be different/changed when compared to prior EKG from September 2019 - Radiology Data Radiology results: pending, report reviewed, image reviewed Chest single view INDICATION: Dyspnea IMPRESSION: Increased pulmonary venous congestion with some slight increased airspace density within the right upper lung. The heart is mildly enlarged. There is prominence of the main pulmonary artery. Signer Name: Amaury Carrion MD Signed: 02/10/2020 9:54 PM Workstation Name: [id number] Print Report Referring Physician: SVEN NAGEL Patient Name: ELEANOR CONNORS Date of : 1965 Sex: Male Report Date: 2020-02-11 Report Status: Finalized Findings [address] [address] Cat Scan Report Signed Patient: ELEANOR CONNORS MR#: [id number] : 1965 Acct:[id number] Age/Sex: 54 / M ADM Date: 02/10/20 Loc: ED Attending Dr: Ordering Physician: SVEN NAGEL MD Date of Service: 02/10/20 Procedure(s): CT chest wo con Accession Number(s): [id number] cc: SVEN NAGEL MD CT chest wo con INDICATION / CLINICAL INFORMATION: sz, rll pna vs atelectasis. Cough TECHNIQUE: Routine CT of the chest All CT scans at this location are performed using CT dose reduction for ALARA by means of automated exposure control. COMPARISON: None available. FINDINGS: There is multifocal airspace pneumonia primarily involving the upper lungs. Cardiomegaly. The pulmonary arteries are enlarged. No significant pericardial or pleural effusion. Shotty borderline enlarged mediastinal nodes are present. No axillary adenopathy. Review of the upper abdomen demonstrates no acute findings within the limits of the exam. Review of bone windows demonstrates compression fracture deformity involving the T4 vertebral body with anterior compression. Impression: Multifocal pneumonia p rimarily within the right upper lobe. Cardiomegaly. Signer Name: Amaury Carrion MD Signed: 02/11/2020 12:46 AM Workstation Name: [id number] Transcribed By: MELISSA Dictated By: Amaury Carrion MD Electronically Authenticated By: Amaury Carrion MD Signed Date/Time: 02/11/2045 DD/ TD/TT: Print Report Referring Physician: SVEN NAGEL Patient Name: ELEANOR CONNORS Date of : 1965 Sex: Male Report Date: 2020-02-11 Report Status: [place] [address] Cat Scan Report Signed Patient: ELEANOR CONNORS MR#: [id number] : 1965 Acct:[id number] Age/Sex: 54 / M ADM Date: 02/10/20 Loc: ED Attending Dr: Ordering Physician: SVEN NAGEL MD Date of Service: 02/10/20 Procedure(s): CT head/brain wo con Accession Number(s): [id number] cc: SVEN NAGEL MD CT head without contrast INDICATION : Seizure. Headache. TECHNIQUE: Axial imaging performed from the skull apex through the skull base without the use of contrast. All CT examinations performed at this facility utilize dose modulation, iterative reconstruction or weight-based dosing, when appropriate, to reduce radiation dose to as low as reasonably achievable. COMPARISON: None FINDINGS: No acute intracranial hemorrhage or parenchymal abnormality or ventricular enlargement is grossly unchanged in the interim. Ventricular leads are unchanged in position. No new extra-axial collection is present. The paranasal sinuses are clear. The orbits are unremarkable. IMPRESSION: No acute intracranial abnormality or change from 09/23/2019. Signer Name: Amaury Carrion MD Signed: 02/11/2020 12:43 AM Workstation Name: [id number] Transcribed By: MELISSA Dictated By: Amaury Carrion MD Electronically Authenticated By: Amaury Carrion MD Signed Date/Time: 02/11/2042 DD/ TD/TT: Critical Care Time: Yes Critical care time in (mins) excluding proc time.: 60 Critical care attestation.: If time is entered above; I have spent that time in minutes in the direct care of this critically ill patient, excluding procedure time. ED Disposition Clinical Impression: Multifocal pneumonia, Atrial flutter, Seizure, Hyperammonemia Disposition: OP ADMIT IP TO THIS HOSP Is pt being admited?: Yes Does the pt Need Aspirin: No Condition: Serious
[2020-02-10] MEDS ORDERED: OXcarbazepine 300 MG TAB PO ONE (22:00)
[2020-02-10] MEDS ORDERED: lamoTRIgine 100 MG TAB PO ONE (22:00)
[2020-02-10 22:11] LABS: Basophils % (Auto) 0.3 % (0.0-1.8); Hematocrit 38.4 % (35.5-45.6); Hemoglobin 12.5 gm/dl (11.8-15.2); Lymphocytes % (Auto) 24.5 % (13.4-35.0); Mean Corpuscular HGB Conc 33 % (32-34); Mean Corpuscular Volume 85 fl (84-94); Monocytes # (Auto) 0.6 K/mm3 (0.0-0.8); Monocytes % (Auto) 6.9 % (0.0-7.3); Platelet Count 196 K/mm3 (140-440); Red Cell Distribution Width 17.4 % (13.2-15.2)
[2020-02-10 22:19] LABS: INR 1.11 (0.87-1.13)
[2020-02-10 22:20] LABS: Partial Thromboplastin Time 27.5 Sec. (24.2-36.6)
[2020-02-10 22:25] LABS: Alanine Aminotransferase 28 units/L (7-56); Albumin 4.5 g/dL (3.9-5); BUN/Creatinine Ratio 9; Blood Urea Nitrogen 10 mg/dL (9-20); Calcium 8.9 mg/dL (8.4-10.2); Hemolysis Index 6
[2020-02-10 22:55] LABS: Bilirubin,Urine NEG (Negative); Blood,Urine NEG (Negative); Color,Urine Colorless (Yellow); Protein,Urine <15 mg/dL mg/dL (Negative); Urobilinogen,Urine < 2.0 mg/dL (<2.0)
--- NOTE | 2020-02-10 22:59 | XRay Report ---
Chest single view INDICATION: Dyspnea IMPRESSION: Increased pulmonary venous congestion with some slight increased airspace density within the right upper lung. The heart is mildly enlarged. There is prominence of the main pulmonary artery. Signer Name: Amaury Carrion MD Signed: 02/10/2020 10:54 PM Workstation Name: [id number]
[2020-02-10 23:03] LABS: Amphetamine Screen,Urine PRESUMPTIVE NEGATIVE; Benzodiazepines Screen,Urine PRESUMPTIVE NEGATIVE; Cocaine Screen,Urine PRESUMPTIVE NEGATIVE; Methadone Screen,Urine PRESUMPTIVE NEGATIVE; Opiate Screen,Urine PRESUMPTIVE NEGATIVE
[2020-02-10] MEDS ORDERED: LORazepam 2 MG/ML VIAL IV STA (23:17)
[2020-02-10] MEDS ORDERED: LORazepam 2 MG/ML VIAL ONE (23:17)
[2020-02-10 23:22] LABS: Cannabinoid Screen,Urine PRESUMPTIVE POSITIVE
[2020-02-10] MEDS ORDERED: LORazepam 2 MG/ML VIAL IV ONE (23:22)
[2020-02-10] MEDS ORDERED: KETAMINE 500 MG/5 ML VIAL MDV IV ONE (23:39)
[2020-02-10] MEDS ORDERED: ONDANSETRON 4 MG/2 ML INJ IV ONE (23:39)
--- NOTE | 2020-02-11 00:48 | Cat Scan Report ---
CT head without contrast INDICATION : Seizure. Headache. TECHNIQUE: Axial imaging performed from the skull apex through the skull base without the use of con trast. All CT examinations performed at this facility utilize dose modulation, iterative reconstruct ion or weight-based dosing, when appropriate, to reduce radiation dose to as low as reasonably achiev able. COMPARISON: None FINDINGS: No acute intracranial hemorrhage or parenchymal abnormality or ventricular enlargement is grossly unchanged in the interim. Ventricular leads are unchanged in position. No new extra-axial col lection is present. The paranasal sinuses are clear. The orbits are unremarkable. IMPRESSION: No acute intracranial abnormality or change from 09/23/2019. Signer Name: Amaury Carrion MD Signed: 02/11/2020 12:43 AM Workstation Name: [id number]
[2020-02-11] MEDS ORDERED: KETAMINE 500 MG/5 ML VIAL MDV IV ONE (00:49)
--- NOTE | 2020-02-11 00:51 | Cat Scan Report ---
CT chest wo con INDICATION / CLINICAL INFORMATION: sz, rll pna vs atelectasis. Cough TECHNIQUE: Routine CT of the chest All CT scans at this location are performed using CT dose reduction for ALARA by means of automated exposure control. COMPARISON: None available. FINDINGS: There is multifocal airspace pneumonia primarily involving the upper lungs. Cardiomegaly. The pulmona ry arteries are enlarged. No significant pericardial or pleural effusion. Shotty borderline enlarged mediastinal nodes are present. No axillary adenopathy. Review of the upper abdomen demonstrates no ac [place] findings within the limits of the exam. Review of bone windows demonstrates compression fracture deformity involving the T4 vertebral body with anterior compression. Impression: Multifocal pneumonia primarily within the right upper lobe. Cardiomegaly. Signer Name: Amaury Carrion MD Signed: 02/11/2020 12:46 AM Workstation Name: [id number]
[2020-02-11] MEDS ORDERED: ENOXAPARIN 100 MG/1 ML INJ SUB-Q STA (01:12)
[2020-02-11] MEDS ORDERED: dilTIAZem 25 MG/5 ML INJ IV ONE (01:12)
[2020-02-11] MEDS ORDERED: cefTRIAXone/NS 1 GM/50 ML 1 GM/50 ML BAG IV ONE (01:12)
[2020-02-11] MEDS ORDERED: SODIUM CHLORIDE 0.9% 500 ML 500 ML IV ONE (01:14)
[2020-02-11] MEDS ORDERED: LACTULOSE ENEMA 1000 ML PR ONE (01:16)
[2020-02-11] MEDS ORDERED: AZITHROMYCIN 500 MG in SODIUM CHLORIDE 0.9% 250ML 250 ML IV ONE (01:32)
[2020-02-11] MEDS ORDERED: MAGNESIUM HYDROXIDE (MOM) ORAL LIQD UDC PO PRN (01:55)
[2020-02-11] MEDS ORDERED: DEXTROSE 50% IN WATER (25GM) 50 ML SYRINGE IV PRN ×2 (01:55→03:00)
[2020-02-11] MEDS ORDERED: SODIUM CHLORIDE 0.9% 1000 ML 1,000 ML IV SCH (02:00)
--- NOTE | 2020-02-11 02:16 | History and Physical Report ---
History of Present Illness Date of examination: 02/11/20 Date of admission: 02/11/2020 Chief complaint: Seizure disorder History of present illness: 54-year-old male with known history of seizure disorder with deep brain stimulator in place, diabetes mellitus, hypertension, hyperlipidemia was brought into the emergency room today after having multiple seizures. Patient was found to be awake but postictal upon arrival and was following commands. Patient unable to give any good history as he is postictal. Family members were also not available. Patient was said to have been given intranasal benzodiazepine on the field which terminated the seizure activity. According to EMS patient may have had about 4 seizure activity prior to arrival in the emergency room. Work-up in the emergency room was significant for pneumonia on the CT scan of the chest, patient has hyper ammonemia on chemistry, CT scan of the head was unremarkable. He had what appeared to be a new onset atrial flutter on the EKG. He had some IV diltiazem with improvement. He had no further seizure activity upon arrival in the emergency room. Past History Past Medical History: diabetes, hypertension, hyperlipidemia, hypothyroidism, seizures Past Surgical History: Other (History of brain stimulator placement) Social history: no significant social history Family history: no significant family history Medications and Allergies Allergies Allergy/AdvReac Type Severity Reaction Status Date / Time aspirin Allergy Unknown Verified 01/23/20 10:44 Home Medications Medication Instructions Recorded Confirmed Last Taken Type Insulin Glargine [Lantus VIAL] 18 units SUB-Q QPM 06/21/19 01/23/20 Unknown History AtorvaSTATin [Lipitor] 40 mg PO QHS #30 tablet 07/28/19 01/23/20 Unknown Rx OXcarbazepine [Trileptal] 1,200 mg PO Q12H #30 tab 07/28/19 01/23/20 Unknown Rx Topiramate [Topamax] 200 mg PO BID #60 tablet 10/27/19 01/23/20 Unknown Rx lamoTRIgine [Lamictal] 200 mg PO BID #60 tablet 10/27/19 Unknown Rx Esomeprazole Magnesium [NexIUM] 40 mg PO QDAY 01/23/20 01/23/20 Unknown History Ferrous Sulfate [Feosol 325 MG tab] 1 tab PO TID 01/23/20 01/23/20 Unknown History Meloxicam [Mobic] 15 mg PO DAILY PRN 01/23/20 01/23/20 Unknown History Metformin HCl [metFORMIN] 1,000 mg PO BIDWM 01/23/20 01/23/20 Unknown History OLANZapine [Zyprexa] 15 mg PO QHS 01/23/20 01/23/20 Unknown History levETIRAcetam [Keppra TAB] 500 mg PO BID #60 tablet 01/23/20 Unknown Rx lisinopriL [Zestril TAB] 1 tab PO DAILY 01/23/20 01/23/20 Unknown History Active Meds: Active Medications Dextrose (D50w (25gm) Syringe) 50 ml IV Q30MIN PRN; Protocol PRN Reason: Hypoglycemia Azithromycin 500 mg/ Sodium (Chloride) 250 mls @ 250 mls/hr IV ONCE ONE; Protocol Stop: 02/11/20 02:31 Last Admin: 02/11/20 01:50 Dose: 250 mls/hr Documented by: Sodium Chloride (Nacl 0.9% 1000 Ml) 1,000 mls @ 125 mls/hr IV DIRECT PAULIE Ceftriaxone Sodium (Rocephin/Ns 2 Gm/100 Ml) 2 gm in 100 mls @ 200 mls/hr IV Q24HR PAULIE; Protocol Azithromycin 500 mg/ Sodium (Chloride) 250 mls @ 250 mls/hr IV Q24HR PAULIE; Protocol Insulin Human Lispro (Humalog) 0 unit SUB-Q ACHS PAULIE; Protocol Magnesium Hydroxide (Milk Of Magnesia) 30 ml PO Q4H PRN PRN Reason: Constipation Sodium Chloride (Sodium Chloride Flush Syringe 10 Ml) 10 ml IV BID PAULIE Sodium Chloride (Sodium Chloride Flush Syringe 10 Ml) 10 ml IV PRN PRN PRN Reason: LINE FLUSH Review of Systems ROS unobtainable: due to mental status Exam - Constitutional Vitals: Temp Pulse Resp BP Pulse Ox 97.1 F L 82 17 150/113 99 02/10/20 21:49 02/11/20 02:00 02/11/20 02:00 02/11/20 02:00 02/11/20 02:00 General appearance: Present: no acute distress, well-nourished - EENT Eyes: Present: PERRL, EOM intact ENT: hearing intact, clear oral mucosa, dentition normal - Neck Neck: Present: supple, normal ROM - Respiratory Respiratory effort: normal Respiratory: bilateral: rhonchi - Cardiovascular Rhythm: irregularly irregular Heart Sounds: Present: S1 & S2 - Extremities Extremities: no ischemia, pulses intact, pulses symmetrical, No edema, Full ROM Peripheral Pulses: within normal limits - Abdominal General gastrointestinal: Present: soft, non-tender, non-distended, normal bowel sounds - Integumentary Integumentary: Present: clear, warm, dry - Musculoskeletal Musculoskeletal: strength equal bilaterally - Psychiatric Psychiatric: cooperative, other (Appears quite drowsy) - Neurologic Neurologic: CNII-XII intact, moves all extremities Results - Labs CBC & Chem 7: 02/10/20 21:51 02/11/20 01:44 Labs: Abnormal lab results 02/10/20 02/10/20 02/10/20 Range/Units 21:51 21:51 21:51 RDW 17.4 H (13.2-15.2) % Carbon Dioxide 19 L (22-30) mmol/L Glucose 165 H (75-100) mg/dL POC Glucose (70-105) Ammonia 85.0 H (25-60) umol/L TSH (0.270-4.200) mlU/mL Salicylates (2.8-20.0) mg/dL Acetaminophen (10.0-30.0) ug/mL 02/10/20 02/10/20 02/10/20 Range/Units 21:51 21:51 21:51 RDW (13.2-15.2) % Carbon Dioxide (22-30) mmol/L Glucose (75-100) mg/dL POC Glucose (70-105) Ammonia (25-60) umol/L TSH 7.220 H (0.270-4.200) mlU/mL Salicylates < 0.3 L (2.8-20.0) mg/dL Acetaminophen < 5.0 L (10.0-30.0) ug/mL 02/10/20 Range/Units 21:58 RDW (13.2-15.2) % Carbon Dioxide (22-30) mmol/L Glucose (75-100) mg/dL POC Glucose 183 H (70-105) Ammonia (25-60) umol/L TSH (0.270-4.200) mlU/mL Salicylates (2.8-20.0) mg/dL Acetaminophen (10.0-30.0) ug/mL Assessment and Plan - Patient Problems (1) Seizure Current Visit: Yes Status: Acute Plan to address problem: Patient placed on seizure precautions. He has been started on IV Keppra. We will place consult to neurologist for further evaluation and recommendation. (2) Atrial flutter Current Visit: Yes Status: Acute Plan to address problem: Patient had a new onset atrial flutter on EKG. He had IV diltiazem in the ER with good response. We will place a consult to cardiology for further evaluation. Meanwhile we will schedule patient for an echocardiogram. (3) Hyperammonemia Current Visit: Yes Status: Acute Plan to address problem: Etiology is unclear however we will monitor ammonia levels. Patient has been known to have hyperammonemia in the past. (4) Multifocal pneumonia Current Visit: Yes Status: Acute Plan to address problem: We will place on empiric IV antibiotics. We will also rule patient out for COVID-19. [address] on droplet precautions and also place a consult to infectious disease for evaluation and recommendation. (5) Diabetes Current Visit: No Status: Acute Plan to address problem: We will monitor Accu-Cheks. (6) HTN (hypertension) Current Visit: No Status: Acute Qualifiers: Hypertension type: essential hypertension Qualified Code(s): I10 - Essential (primary) hypertension Plan to address problem: We will resume routine home medications and monitor vital signs closely. We will also place on IV hydralazine as needed. (7) DVT prophylaxis Current Visit: No Status: Acute Plan to address problem: Patient placed on subcutaneous heparin. (8) Full code status Current Visit: Yes Status: Acute
[2020-02-11] MEDS ORDERED: LORazepam 2 MG/ML VIAL IV PRN (02:23)
[2020-02-11 03:56] LABS: C-Reactive Protein 0.6 mg/dL (0.00-1.30)
[2020-02-11] MEDS ORDERED: hydrALAZINE 20 MG/1 ML INJ IV PRN (06:10)
[2020-02-11] MEDS: INSULIN LISPRO 100 UNIT/ML SUB-Q SCH ×4 (07:32→22:29)
--- NOTE | 2020-02-11 09:14 | Consultation ---
History of Present Illness Consult date: 02/11/20 History of present illness: Impression Pt admitted for acute seizures He has prior seizure disorder history post deep brain stimulator CT scan chest c/w multilobar PNA EKG and Tele c/w aflutter with variable block, HR controlled Aflutter may be new onset, uncertain duration Pt is lethargic from sedation and unable to give history HTN DM Plan CV stable at present, he is tolerating rhythm well, no CHF HR is controlled at present without chronotropes, this may change when sedation wears off. Echo pending He is high risk for use of anticoagulants kendall if seizures are not controlled. Would aim for either ELDA/DCCV or DOAC for 6 weeks followed by elective DCCV for Aflutter (rhythm control). Will need to discuss with him. will follow clinically. Past History Past Medical History: diabetes, hypertension, hyperlipidemia, hypothyroidism, seizures Past Surgical History: Other (History of brain stimulator placement) Social history: no significant social history Family history: no significant family history Medications and Allergies Allergies Allergy/AdvReac Type Severity Reaction Status Date / Time aspirin Allergy Unknown Verified 01/23/20 10:44 Home Medications Medication Instructions Recorded Confirmed Last Taken Type Insulin Glargine [Lantus VIAL] 18 units SUB-Q QPM 06/21/19 01/23/20 Unknown History AtorvaSTATin [Lipitor] 40 mg PO QHS #30 tablet 07/28/19 01/23/20 Unknown Rx OXcarbazepine [Trileptal] 1,200 mg PO Q12H #30 tab 07/28/19 01/23/20 Unknown Rx Topiramate [Topamax] 200 mg PO BID #60 tablet 10/27/19 01/23/20 Unknown Rx lamoTRIgine [Lamictal] 200 mg PO BID #60 tablet 10/27/19 Unknown Rx Esomeprazole Magnesium [NexIUM] 40 mg PO QDAY 01/23/20 01/23/20 Unknown History Ferrous Sulfate [Feosol 325 MG tab] 1 tab PO TID 01/23/20 01/23/20 Unknown History Meloxicam [Mobic] 15 mg PO DAILY PRN 01/23/20 01/23/20 Unknown History Metformin HCl [metFORMIN] 1,000 mg PO BIDWM 01/23/20 01/23/20 Unknown History OLANZapine [Zyprexa] 15 mg PO QHS 01/23/20 01/23/20 Unknown History levETIRAcetam [Keppra TAB] 500 mg PO BID #60 tablet 01/23/20 Unknown Rx lisinopriL [Zestril TAB] 1 tab PO DAILY 01/23/20 01/23/20 Unknown History Active Meds: Active Medications Dextrose (D50w (25gm) Syringe) 0 ml IV Q30MIN PRN; Protocol PRN Reason: Hypoglycemia Heparin Sodium (Porcine) (Heparin) 5,000 unit SUB-Q Q8HR PAULIE Hydralazine HCl (Apresoline) 10 mg IV Q4H PRN PRN Reason: Blood Pressure Sodium Chloride (Nacl 0.9% 1000 Ml) 1,000 mls @ 125 mls/hr IV DIRECT PAULIE Ceftriaxone Sodium (Rocephin/Ns 2 Gm/100 Ml) 2 gm in 100 mls @ 200 mls/hr IV Q24HR PAULIE; Protocol Azithromycin 500 mg/ Sodium (Chloride) 250 mls @ 250 mls/hr IV Q24HR PAULIE; Protocol Levetiracetam 500 mg/ Dextrose 105 mls @ 400 mls/hr IV Q12HR PAULIE Insulin Human Lispro (Humalog) 0 unit SUB-Q ACHS PAULIE; Protocol Last Admin: 02/11/20 07:32 Dose: Not Given Documented by: Lorazepam (Ativan) 2 mg IV Q4H PRN PRN Reason: Seizures Magnesium Hydroxide (Milk Of Magnesia) 30 ml PO Q4H PRN PRN Reason: Constipation Sodium Chloride (Sodium Chloride Flush Syringe 10 Ml) 10 ml IV BID PAULIE Sodium Chloride (Sodium Chloride Flush Syringe 10 Ml) 10 ml IV PRN PRN PRN Reason: LINE FLUSH Review of Systems ROS unobtainable: due to mental status (sedated) Physical Examination Vital Signs Pulse Resp Pulse Ox 62 31 H 100 02/10/20 21:40 02/10/20 21:40 02/10/20 21:40 General appearance: no acute distress Cardiac: Positive: Reg Rate and Rhythm, S1/S2 Lungs: Positive: Normal Exam Abdomen: Positive: Soft. Negative: Pulsations/Bruits Extremities: Present: normal. Absent: edema Results 02/10/20 21:51 02/11/20 01:44 Cardiac Enzymes 02/10/20 02/11/20 Range/Units 21:51 01:44 AST 16 (5-40) units/L Lactate Dehydrogenase 228 H (91-180) units/L Coagulation 02/10/20 Range/Units 21:51 PT 14.4 (12.2-14.9) Sec. INR 1.11 (0.87-1.13) APTT 27.5 (24.2-36.6) Sec. CBC 02/10/20 Range/Units 21:51 WBC 8.3 (4.5-11.0) K/mm3 RBC 4.50 (3.65-5.03) M/mm3 Hgb 12.5 (11.8-15.2) gm/dl Hct 38.4 (35.5-45.6) % Plt Count 196 (140-440) K/mm3 Lymph # 2.0 (1.2-5.4) K/mm3 [place] # 0.6 (0.0-0.8) K/mm3 Eos # 0.0 (0.0-0.4) K/mm3 Baso # 0.0 (0.0-0.1) K/mm3 Comprehensive Metabolic Panel 02/10/20 02/11/20 Range/Units 21:51 01:44 Sodium 142 (137-145) mmol/L Potassium 3.8 (3.6-5.0) mmol/L Chloride 105.0 (98-107) mmol/L Carbon Dioxide 19 L (22-30) mmol/L BUN 10 (9-20) mg/dL Creatinine 1.1 (0.8-1.5) mg/dL Glucose 165 H 162 H (75-100) mg/dL Calcium 8.9 (8.4-10.2) mg/dL AST 16 (5-40) units/L ALT 28 (7-56) units/L Alkaline Phosphatase 117 (35-129) units/L Total Protein 7.4 (6.3-8.2) g/dL Albumin 4.5 (3.9-5) g/dL
[2020-02-11] MEDS ORDERED: AZITHROMYCIN 500 MG in SODIUM CHLORIDE 0.9% 250ML 250 ML IV SCH (10:00)
--- NOTE | 2020-02-11 10:32 | Consultation ---
History of Present Illness - Reason for Consult Consult date: 02/11/20 COVID rule out Requesting physician: STEVE ROWLAND - History of Present Illness The patient is a 54-year-old male with known seizure disorder, deep brain stimulator in place, diabetes mellitus, hyperlipidemia, hypertension was admitted from the emergency room after he was having multiple seizures. Upon arrival in the ER, patient was postictal and unable to give any history. CT head was unremarkable. CT chest showed some multifocal pneumonia primarily on the right side. Patient was loaded with IV Keppra. Due to concern for multifocal pneumonia, he was started on empiric antibiotics. Infectious diseases was consulted for COVID rule out. He has otherwise been afebrile Review of Systems: reviewed in the chart, unable to obtain directly due to PPE shortage and preservation Past History Past Medical History: diabetes, hypertension, hyperlipidemia, hypothyroidism, seizures Past Surgical History: Other (History of brain stimulator placement) Social history: no significant social history Family history: no significant family history Medications and Allergies Allergies Allergy/AdvReac Type Severity Reaction Status Date / Time aspirin Allergy Unknown Verified 01/23/20 10:44 Home Medications Medication Instructions Recorded Confirmed Last Taken Type Insulin Glargine [Lantus VIAL] 18 units SUB-Q QPM 06/21/19 01/23/20 Unknown History AtorvaSTATin [Lipitor] 40 mg PO QHS #30 tablet 07/28/19 01/23/20 Unknown Rx OXcarbazepine [Trileptal] 1,200 mg PO Q12H #30 tab 07/28/19 01/23/20 Unknown Rx Topiramate [Topamax] 200 mg PO BID #60 tablet 10/27/19 01/23/20 Unknown Rx lamoTRIgine [Lamictal] 200 mg PO BID #60 tablet 10/27/19 Unknown Rx Esomeprazole Magnesium [NexIUM] 40 mg PO QDAY 01/23/20 01/23/20 Unknown History Ferrous Sulfate [Feosol 325 MG tab] 1 tab PO TID 01/23/20 01/23/20 Unknown History Meloxicam [Mobic] 15 mg PO DAILY PRN 01/23/20 01/23/20 Unknown History Metformin HCl [metFORMIN] 1,000 mg PO BIDWM 01/23/20 01/23/20 Unknown History OLANZapine [Zyprexa] 15 mg PO QHS 01/23/20 01/23/20 Unknown History levETIRAcetam [Keppra TAB] 500 mg PO BID #60 tablet 01/23/20 Unknown Rx lisinopriL [Zestril TAB] 1 tab PO DAILY 01/23/20 01/23/20 Unknown History Active Meds: Active Medications Dextrose (D50w (25gm) Syringe) 0 ml IV Q30MIN PRN; Protocol PRN Reason: Hypoglycemia Heparin Sodium (Porcine) (Heparin) 5,000 unit SUB-Q Q8HR PAULIE Hydralazine HCl (Apresoline) 10 mg IV Q4H PRN PRN Reason: Blood Pressure Sodium Chloride (Nacl 0.9% 1000 Ml) 1,000 mls @ 125 mls/hr IV DIRECT PAULIE Ceftriaxone Sodium (Rocephin/Ns 2 Gm/100 Ml) 2 gm in 100 mls @ 200 mls/hr IV Q24HR PAULIE; Protocol Azithromycin 500 mg/ Sodium (Chloride) 250 mls @ 250 mls/hr IV Q24HR PAULIE; Protocol Levetiracetam 500 mg/ Dextrose 105 mls @ 400 mls/hr IV Q12HR PAULIE Insulin Human Lispro (Humalog) 0 unit SUB-Q ACHS PAULIE; Protocol Last Admin: 02/11/20 07:32 Dose: Not Given Documented by: Lorazepam (Ativan) 2 mg IV Q4H PRN PRN Reason: Seizures Magnesium Hydroxide (Milk Of Magnesia) 30 ml PO Q4H PRN PRN Reason: Constipation Sodium Chloride (Sodium Chloride Flush Syringe 10 Ml) 10 ml IV BID PAULIE Sodium Chloride (Sodium Chloride Flush Syringe 10 Ml) 10 ml IV PRN PRN PRN Reason: LINE FLUSH Physical Examination - Physical Exam Narrative exam: Physical Exam (reviewed in chart due to PPE conservation) Constitutional: limited due to PPE conservation strategy Head, Ears, Nose: limited due to PPE conservation strategy Eyes: limited due to PPE conservation strategy Neck: limited due to PPE conservation strategy Oral: limited due to PPE conservation strategy Cardiovascular: limited due to PPE conservation strategy Respiratory: limited due to PPE conservation strategy GI: limited due to PPE conservation strategy Musculoskeletal: limited due to PPE conservation strategy Skin: limited due to PPE conservation strategy Hem/Lymphatic: limited due to PPE conservation strategy Psych: limited due to PPE conservation strategy Neurological: limited due to PPE conservation strategy - Constitutional Vitals: Vital Signs Temp Pulse Resp BP Pulse Ox 97.7 F 70 15 156/85 100 02/11/20 07:54 02/11/20 10:20 02/11/20 10:20 02/11/20 10:20 02/11/20 10:20 Temperature -Last 24 Hours Temperature 97.7 F Temperature 98.7 F Temperature 97.8 F Temperature 97.1 F Results - Labs CBC & Chem 7: 02/10/20 21:51 02/11/20 01:44 Labs: Abnormal lab results 02/10/20 02/10/20 02/10/20 Range/Units 21:51 21:51 21:51 RDW 17.4 H (13.2-15.2) % D-Dimer (0-234) ng/mlDDU Carbon Dioxide 19 L (22-30) mmol/L Glucose 165 H (75-100) mg/dL POC Glucose (70-105) Lactic Acid (0.7-2.0) mmol/L Ammonia 85.0 H (25-60) umol/L Lactate Dehydrogenase (91-180) units/L TSH (0.270-4.200) mlU/mL Salicylates (2.8-20.0) mg/dL Acetaminophen (10.0-30.0) ug/mL 02/10/20 02/10/20 02/10/20 Range/Units 21:51 21:51 21:51 RDW (13.2-15.2) % D-Dimer (0-234) ng/mlDDU Carbon Dioxide (22-30) mmol/L Glucose (75-100) mg/dL POC Glucose (70-105) Lactic Acid (0.7-2.0) mmol/L Ammonia (25-60) umol/L Lactate Dehydrogenase (91-180) units/L TSH 7.220 H (0.270-4.200) mlU/mL Salicylates < 0.3 L (2.8-20.0) mg/dL Acetaminophen < 5.0 L (10.0-30.0) ug/mL 02/10/20 02/11/20 02/11/20 Range/Units 21:58 01:44 01:44 RDW (13.2-15.2) % D-Dimer 291.75 H (0-234) ng/mlDDU Carbon Dioxide (22-30) mmol/L Glucose (75-100) mg/dL POC Glucose 183 H (70-105) Lactic Acid 2.20 H* (0.7-2.0) mmol/L Ammonia (25-60) umol/L Lactate Dehydrogenase (91-180) units/L TSH (0.270-4.200) mlU/mL Salicylates (2.8-20.0) mg/dL Acetaminophen (10.0-30.0) ug/mL 02/11/20 02/11/20 02/11/20 Range/Units 01:44 07:10 08:21 RDW (13.2-15.2) % D-Dimer (0-234) ng/mlDDU Carbon Dioxide (22-30) mmol/L Glucose 162 H (75-100) mg/dL POC Glucose 109 H (70-105) Lactic Acid (0.7-2.0) mmol/L Ammonia 85.0 H (25-60) umol/L Lactate Dehydrogenase 228 H (91-180) units/L TSH (0.270-4.200) mlU/mL Salicylates (2.8-20.0) mg/dL Acetaminophen (10.0-30.0) ug/mL - Imaging and Cardiology Chest x-ray: report reviewed, image reviewed CT scan - chest: report reviewed, image reviewed (subtle pneumonitis mainly on R side) Assessment and Plan Cultures: 02/11/2020 blood culture: In progress A/P: 54-year-old male with known seizure disorder, deep brain stimulator in place, diabetes mellitus, hyperlipidemia, hypertension admitted following seizures: #Multifocal pneumonia: Possible aspiration pneumonitis #Seizure disorder Recs: Agree with COVID-19 rule out, low suspicion, if test is negative, will DC isolation Cover for aspiration pneumonitis: IV ceftriaxone for now, anticipate stopping so on Procalcitonin ordered Azithromycin discontinued Anne Boone MD, FACP [facility] ([facility] C: [phone] O: [phone] F: [phone]
[2020-02-11] MEDS: levETIRAcetam 500 MG in DEXTROSE 5% IN WATER 100 ML IV SCH ×2 (10:48→22:28)
[2020-02-11] MEDS: cefTRIAXone/NS 2 GM/100 ML 2 GM/100 ML BAG IV SCH (10:49)
--- NOTE | 2020-02-11 11:20 | Event Note ---
Date: 02/11/20 Patient seen and examined, awakens to verbal stimuli during my exam, subsequently Nursing staff reported that the patient awoke and answered questi ons appropriately, was not sure why he had a seizure. Will check MR brain, await Neuro eval. Cardiology evaluating due to aflutter.
--- NOTE | 2020-02-11 12:17 | Consultation ---
History of Present Illness Consult date: 02/11/20 Requesting physician: STEVE ROWLAND Reason for consult: other (Atrial Flutter; Seizure disorder) History of present illness: PULMONARY/CCM CONSULT NOTE (Full dictation # ) Please see dictated notes for full details Past History Past Medical History: diabetes, hypertension, hyperlipidemia, hypothyroidism, seizures Past Surgical History: Other (History of brain stimulator placement) Social history: no significant social history Family history: no significant family history Medications and Allergies Allergies Allergy/AdvReac Type Severity Reaction Status Date / Time aspirin Allergy Unknown Verified 01/23/20 10:44 Home Medications Medication Instructions Recorded Confirmed Last Taken Type Insulin Glargine [Lantus VIAL] 18 units SUB-Q QPM 06/21/19 01/23/20 Unknown History AtorvaSTATin [Lipitor] 40 mg PO QHS #30 tablet 07/28/19 01/23/20 Unknown Rx OXcarbazepine [Trileptal] 1,200 mg PO Q12H #30 tab 07/28/19 02/11/20 Unknown Rx Topiramate [Topamax] 200 mg PO BID #60 tablet 10/27/19 02/11/20 Unknown Rx lamoTRIgine [Lamictal] 200 mg PO BID #60 tablet 10/27/19 Unknown Rx Esomeprazole Magnesium [NexIUM] 40 mg PO QDAY 01/23/20 01/23/20 Unknown History Ferrous Sulfate [Feosol 325 MG tab] 1 tab PO TID 01/23/20 01/23/20 Unknown History Meloxicam [Mobic] 15 mg PO DAILY PRN 01/23/20 01/23/20 Unknown History Metformin HCl [metFORMIN] 1,000 mg PO BIDWM 01/23/20 02/11/20 Unknown History OLANZapine [Zyprexa] 15 mg PO QHS 01/23/20 01/23/20 Unknown History levETIRAcetam [Keppra TAB] 500 mg PO BID #60 tablet 01/23/20 Unknown Rx lisinopriL [Zestril TAB] 1 tab PO DAILY 01/23/20 02/11/20 Unknown History Active Meds: Active Medications Dextrose (D50w (25gm) Syringe) 0 ml IV Q30MIN PRN; Protocol PRN Reason: Hypoglycemia Heparin Sodium (Porcine) (Heparin) 5,000 unit SUB-Q Q8HR PAULIE Hydralazine HCl (Apresoline) 10 mg IV Q4H PRN PRN Reason: Blood Pressure Last Admin: 02/11/20 11:06 Dose: 10 mg Documented by: Sodium Chloride (Nacl 0.9% 1000 Ml) 1,000 mls @ 125 mls/hr IV DIRECT PAULIE Ceftriaxone Sodium (Rocephin/Ns 2 Gm/100 Ml) 2 gm in 100 mls @ 200 mls/hr IV Q24HR [facility]; Protocol Last Admin: 02/11/20 10:49 Dose: 200 mls/hr Documented by: Levetiracetam 500 mg/ Dextrose 105 mls @ 400 mls/hr IV Q12HR PAULIE Last Admin: 02/11/20 10:48 Dose: 400 mls/hr Documented by: Insulin Human Lispro (Humalog) 0 unit SUB-Q ACHS PAULIE; Protocol Last Admin: 02/11/20 11:46 Dose: Not Given Documented by: Lactulose (Cephulac) 20 gm PO BID [facility] Stop: 02/12/20 10:01 Lorazepam (Ativan) 2 mg IV Q4H PRN PRN Reason: Seizures Magnesium Hydroxide (Milk Of Magnesia) 30 ml PO Q4H PRN PRN Reason: Constipation Sodium Chloride (Sodium Chloride Flush Syringe 10 Ml) 10 ml IV BID [facility] Last Admin: 02/11/20 10:49 Dose: 10 ml Documented by: Sodium Chloride (Sodium Chloride Flush Syringe 10 Ml) 10 ml IV PRN PRN PRN Reason: LINE FLUSH Physical Examination Vital signs: Vital Signs Pulse Resp Pulse Ox 62 31 H 100 02/10/20 21:40 02/10/20 21:40 02/10/20 21:40 Results - Laboratory Findings CBC and BMP: 02/10/20 21:51 02/11/20 01:44 PT/INR, D-dimer PT 14.4 Sec. (12.2-14.9) 02/10/20 21:51 INR 1.11 (0.87-1.13) 02/10/20 21:51 D-Dimer 291.75 ng/mlDDU (0-234) H 02/11/20 01:44 Abnormal lab findings: Abnormal Labs 02/10/20 02/10/20 02/10/20 21:51 21:51 21:51 RDW 17.4 H D-Dimer Carbon Dioxide 19 L Glucose 165 H POC Glucose Lactic Acid Ammonia 85.0 H Lactate Dehydrogenase TSH Salicylates Acetaminophen 02/10/20 02/10/20 02/10/20 21:51 21:51 21:51 RDW D-Dimer Carbon Dioxide Glucose POC Glucose Lactic Acid Ammonia Lactate Dehydrogenase TSH 7.220 H Salicylates < 0.3 L Acetaminophen < 5.0 L 02/10/20 02/11/20 02/11/20 21:58 01:44 01:44 RDW D-Dimer 291.75 H Carbon Dioxide Glucose POC Glucose 183 H Lactic Acid 2.20 H* Ammonia Lactate Dehydrogenase TSH Salicylates Acetaminophen 02/11/20 02/11/20 02/11/20 01:44 07:10 08:21 RDW D-Dimer Carbon Dioxide Glucose 162 H POC Glucose 109 H Lactic Acid Ammonia 85.0 H Lactate Dehydrogenase 228 H TSH Salicylates Acetaminophen 02/11/20 11:29 RDW D-Dimer Carbon Dioxide Glucose POC Glucose 141 H Lactic Acid Ammonia Lactate Dehydrogenase TSH Salicylates Acetaminophen
--- NOTE | 2020-02-11 13:12 | Progress Note ---
Subjective Date of service: 02/11/20 Interval history: thanks for consult I remember this patient from previous has deep brain stimulator for " experimental device to treat seizures" Objective - Vital Sign Vital Signs - 12hr 02/11/20 02/11/20 02/11/20 01:16 01:29 01:30 Temperature Pulse Rate 80 120 H 83 Pulse Rate [ From Monitor] Respiratory 17 56 H Rate Blood Pressure 150/113 150/113 O2 Sat by Pulse 99 97 Oximetry 02/11/20 02/11/20 02/11/20 01:46 02:00 02:16 Temperature Pulse Rate 97 H 82 69 Pulse Rate [ From Monitor] Respiratory 23 17 28 H Rate Blood Pressure 150/113 150/113 171/91 O2 Sat by Pulse 97 99 98 Oximetry 02/11/20 02/11/20 02/11/20 02:30 02:46 02:48 Temperature 97.8 F Pulse Rate 75 Pulse Rate [ From Monitor] Respiratory 26 H 18 Rate Blood Pressure 171/91 171/91 O2 Sat by Pulse 98 99 Oximetry 02/11/20 02/11/20 02/11/20 03:00 03:16 03:30 Temperature Pulse Rate 69 73 70 Pulse Rate [ From Monitor] Respiratory 11 L 13 19 Rate Blood Pressure 171/91 161/95 161/95 O2 Sat by Pulse 98 98 99 Oximetry 02/11/20 02/11/20 02/11/20 04:00 04:08 04:20 Temperature 98.7 F Pulse Rate 73 Pulse Rate [ 73 From Monitor] Respiratory Rate Blood Pressure O2 Sat by Pulse Oximetry 02/11/20 02/11/20 02/11/20 07:12 07:27 07:30 Temperature Pulse Rate 75 70 71 Pulse Rate [ From Monitor] Respiratory 18 18 16 Rate Blood Pressure 162/93 162/93 O2 Sat by Pulse 100 100 100 Oximetry 02/11/20 02/11/20 02/11/20 07:40 07:50 07:54 Temperature 97.7 F Pulse Rate 72 71 Pulse Rate [ From Monitor] Respiratory 16 15 Rate Blood Pressure 162/93 162/93 O2 Sat by Pulse 100 100 Oximetry 02/11/20 02/11/20 02/11/20 08:00 08:10 08:20 Temperature Pulse Rate 67 66 64 Pulse Rate [ 73 From Monitor] Respiratory 15 18 15 Rate Blood Pressure 162/93 160/97 160/97 O2 Sat by Pulse 100 100 100 Oximetry 02/11/20 02/11/20 02/11/20 08:30 08:40 08:50 Temperature Pulse Rate 76 72 70 Pulse Rate [ From Monitor] Respiratory 18 16 20 Rate Blood Pressure 160/97 160/97 160/97 O2 Sat by Pulse 100 100 100 Oximetry 02/11/20 02/11/20 02/11/20 08:55 09:00 09:10 Temperature Pulse Rate 73 69 Pulse Rate [ From Monitor] Respiratory 18 18 Rate Blood Pressure 160/97 117/89 O2 Sat by Pulse 100 100 100 Oximetry 02/11/20 02/11/20 02/11/20 09:20 09:30 09:40 Temperature Pulse Rate 74 78 78 Pulse Rate [ From Monitor] Respiratory 17 14 25 H Rate Blood Pressure 117/89 117/89 117/89 O2 Sat by Pulse 100 100 100 Oximetry 02/11/20 02/11/20 02/11/20 09:50 10:00 10:10 Temperature Pulse Rate 69 77 83 Pulse Rate [ From Monitor] Respiratory 18 14 18 Rate Blood Pressure 117/89 117/89 156/85 O2 Sat by Pulse 100 100 100 Oximetry 02/11/20 02/11/20 02/11/20 10:20 10:30 10:40 Temperature Pulse Rate 70 82 70 Pulse Rate [ From Monitor] Respiratory 15 17 16 Rate Blood Pressure 156/85 156/85 156/85 O2 Sat by Pulse 100 100 100 Oximetry 02/11/20 02/11/20 02/11/20 10:50 11:00 11:06 Temperature Pulse Rate 69 68 66 Pulse Rate [ From Monitor] Respiratory 17 14 Rate Blood Pressure 156/85 156/85 178/92 O2 Sat by Pulse 99 99 Oximetry 02/11/20 02/11/20 02/11/20 11:10 11:20 11:30 Temperature Pulse Rate 79 82 109 H Pulse Rate [ From Monitor] Respiratory 15 20 28 H Rate Blood Pressure 178/92 177/85 177/85 O2 Sat by Pulse 99 98 99 Oximetry 02/11/20 02/11/20 02/11/20 11:40 11:50 12:00 Temperature 97.9 F Pulse Rate 114 H 131 H 112 H Pulse Rate [ From Monitor] Respiratory 20 14 17 Rate Blood Pressure 177/85 177/85 177/85 O2 Sat by Pulse 100 99 100 Oximetry 02/11/20 12:10 Temperature Pulse Rate 95 H Pulse Rate [ From Monitor] Respiratory 17 Rate Blood Pressure 189/75 O2 Sat by Pulse 99 Oximetry - Laboratory Findings CBC and BMP: 02/10/20 21:51 02/11/20 01:44 Abnormal Lab Findings: Abnormal Labs 02/10/20 02/10/20 02/10/20 21:51 21:51 21:51 RDW 17.4 H D-Dimer Carbon Dioxide 19 L Glucose 165 H POC Glucose Lactic Acid Ammonia 85.0 H Lactate Dehydrogenase TSH Salicylates Acetaminophen 02/10/20 02/10/20 02/10/20 21:51 21:51 21:51 RDW D-Dimer Carbon Dioxide Glucose POC Glucose Lactic Acid Ammonia Lactate Dehydrogenase TSH 7.220 H Salicylates < 0.3 L Acetaminophen < 5.0 L 02/10/20 02/11/20 02/11/20 21:58 01:44 01:44 RDW D-Dimer 291.75 H Carbon Dioxide Glucose POC Glucose 183 H Lactic Acid 2.20 H* Ammonia Lactate Dehydrogenase TSH Salicylates Acetaminophen 02/11/20 02/11/20 02/11/20 01:44 07:10 08:21 RDW D-Dimer Carbon Dioxide Glucose 162 H POC Glucose 109 H Lactic Acid Ammonia 85.0 H Lactate Dehydrogenase 228 H TSH Salicylates Acetaminophen 02/11/20 11:29 RDW D-Dimer Carbon Dioxide Glucose POC Glucose 141 H Lactic Acid Ammonia Lactate Dehydrogenase TSH Salicylates Acetaminophen
[2020-02-11] MEDS: HEPARIN 5,000 UNIT/1 ML VIAL SUB-Q SCH ×2 (14:21→22:29)
[2020-02-11] MEDS: LACTULOSE 20 GM/30 ML ORAL LIQD PO SCH (22:29)
[2020-02-12 04:59] LABS: Basophils % (Auto) 0.5 % (0.0-1.8); Eosinophils % (Auto) 0.1 % (0.0-4.3); Hematocrit 37.6 % (35.5-45.6); Hemoglobin 12.4 gm/dl (11.8-15.2); Lymphocytes # (Auto) 1.8 K/mm3 (1.2-5.4); Lymphocytes % (Auto) 25.5 % (13.4-35.0); Mean Corpuscular HGB Conc 33 % (32-34); Mean Corpuscular Volume 84 fl (84-94); Monocytes # (Auto) 0.6 K/mm3 (0.0-0.8); Monocytes % (Auto) 8.6 % (0.0-7.3); Platelet Count 169 K/mm3 (140-440); Red Blood Count 4.47 M/mm3 (3.65-5.03); Red Cell Distribution Width 17.3 % (13.2-15.2)
[2020-02-12 05:10] LABS: INR 1.04 (0.87-1.13)
[2020-02-12 05:15] LABS: BUN/Creatinine Ratio 9; Blood Urea Nitrogen 9 mg/dL (9-20); Calcium 9.2 mg/dL (8.4-10.2)
[2020-02-12] MEDS: HEPARIN 5,000 UNIT/1 ML VIAL SUB-Q SCH (06:35)
[2020-02-12 07:21] VITALS: BP 179/89
[2020-02-12] MEDS: INSULIN LISPRO 100 UNIT/ML SUB-Q SCH ×3 (08:35→17:31)
--- NOTE | 2020-02-12 09:04 | Discharge Summary ---
Providers - Providers Date of Admission: 02/11/20 02:22 Attending physician: HOLLY MCKEON MD 02/11/20 01:55 Consult to Physician [CONS] Routine Comment: Consulting Provider: GLO VELA Physician Instructions: Reason For Exam: PNEUMONIA R/O COVID 19 02/11/20 01:57 Consult to Dietitian/Nutrition [CONS] Routine Physician Instructions: Reason For Exam: Reason for Consult: Diet education Consult to Dietitian/Nutrition [CONS] Routine Physician Instructions: Reason For Exam: Reason for Consult: Diet education Consult to Physician [CONS] Routine Comment: Consulting Provider: IAIN RENDON Physician Instructions: Reason For Exam: A.FLUTTER,SEIZURE DISORDER,PNEUMONIA 02/11/20 02:08 Consult to Physician [CONS] Routine Comment: Consulting Provider: RENEA VIDAL Physician Instructions: Reason For Exam: SEIZURES 02/11/20 06:02 Consult to Physician [CONS] Routine Comment: Consulting Provider: SEEMA NO Physician Instructions: Reason For Exam: Atrial flutter Primary care physician: COMPUTER SECURITY COORDINATOR Hospitalization Reason for admission: seizure Hospital course: 54-year-old male with known history of seizure disorder with deep brain stimulator in place, diabetes mellitus, hypertension, hyperlipidemia was brought into the emergency room today after having multiple seizures. Patient was found to be awake but postictal upon arrival and was following commands. Patient unable to give any good history as he is postictal. Family members were also not available. Patient was said to have been given intranasal benzodiazepine on the field which terminated the seizure activity. According to EMS patient may have had about 4 seizure activity prior to arrival in the emergency room. Work-up in the emergency room was significant for pneumonia on the CT scan of the chest, patient has hyper ammonemia on chemistry, CT scan of the head was unremarkable. He had what appeared to be a new onset atrial flutter on the EKG. He had some IV diltiazem with improvement. He had no further seizure activity upon arrival in the emergency room. Per patient he follows at [place] he has not had any seizure activity recently. He was tested for COVID and was negative. Infectious disease and pulmonary saw him recommendations as noted in the documentation. Patient will be discharged on p.o. antibiotics CT was unremarkable, MRI could not be obtained due to Simulator implant. Status epileptics Seizure Aspiration Pneumonia Acute Metabolic Encephalopathy Atrial Flutter Hyperammonemia Multifocal Pneumonia Diabetes Mellitus HTN Disposition: DC-01 TO HOME OR SELFCARE Time spent for discharge: 35 mins Core Measure Documentation - Palliative Care Palliative Care/ Comfort Measures: Not Applicable - Core Measures Any of the following diagnoses?: none Exam - Physical Exam Narrative exam: VITAL SIGNS: Reviewed. GENERAL: The patient appears normally developed, Vital signs as documented. HEAD: No signs of head trauma. EYES: Pupils are equal. Extraocular motions intact. EARS: Hearing grossly intact. MOUTH: Oropharynx is normal. NECK: No adenopathy, no JVD. CHEST: Chest with clear breath sounds bilaterally. No wheezes, rales, or rhonchi. CARDIAC: Regular rate and rhythm. S1 and S2, without murmurs, gallops, or rubs. VASCULAR: No Edema. Peripheral pulses normal and equal in all extremities. ABDOMEN: Soft, non tender and non distended. No rebound or guarding, and no masses palpated. Bowel Sounds normal. MUSCULOSKELETAL: Good range of motion of all major joints. Extremities without clubbing, cyanosis or edema. NEUROLOGIC EXAM: Alert and oriented x 3 No focal sensory or strength deficits. Speech normal. Follows commands. PSYCHIATRIC: Mood normal. SKIN: detial exam as documented in skin assessment - Constitutional Vitals: Temp Pulse Resp BP Pulse Ox 98.0 F 64 20 179/89 100 02/12/20 07:16 02/12/20 07:16 02/12/20 07:16 02/12/20 07:16 02/12/20 07:16 Plan Activity: advance as tolerated, avoid flexion, other (Follow [employer] rules no driving for 3 to 6 months until cleared by ) Diet: low fat Special Instructions: record daily BP diary Follow up with: PRIMARY CARE, [Primary Care Provider] - 3-5 Days RENEA VIDAL MD [Staff Physician] - 7 Days ISHMAEL HAIDER MD [Staff Physician] - 7 Days Prescriptions: dilTIAZem CD [Cardizem CD] 180 mg PO QDAY #30 cap Apixaban [Eliquis] 5 mg PO BID #60 tablet
[2020-02-12] MEDS: LACTULOSE 20 GM/30 ML ORAL LIQD PO SCH (09:20)
[2020-02-12] MEDS: cefTRIAXone/NS 2 GM/100 ML 2 GM/100 ML BAG IV SCH (09:20)
--- NOTE | 2020-02-12 10:09 | Progress Note ---
Assessment and Plan - Patient Problems (1) Atrial flutter Current Visit: Yes Status: Acute Plan to address problem: Paroxysmal atrial flutter patient spontaneously reverted to sinus rhythm TSH 7.22 We will initiate Eliquis for oral anticoagulation and Diltiazem CD 180 mg daily for suppression of atrial fibrillation. Echocardiogram can be done as an outpatient. Subjective Date of service: 02/12/20 Interval history: Patient has reverted to sinus rhythm. Objective Vital Signs Temp Pulse Resp BP Pulse Ox 02/12/20 07:16 98.0 F 64 20 179/89 100 02/12/20 05:03 98.6 F 80 20 159/90 100 02/11/20 22:57 98.7 F 76 18 159/95 99 02/11/20 20:39 92 H 02/11/20 19:50 99.0 F 92 H 18 166/97 100 02/11/20 18:12 99 H 02/11/20 16:02 99.1 F 81 18 156/80 99 02/11/20 14:21 156/105 100 02/11/20 14:11 156/105 100 02/11/20 14:01 156/105 100 02/11/20 13:51 160/88 100 02/11/20 13:40 160/88 99 02/11/20 13:30 160/88 99 02/11/20 13:20 79 29 H 160/88 99 02/11/20 13:10 70 16 160/88 99 02/11/20 13:00 74 21 189/75 99 02/11/20 12:50 82 28 H 189/75 99 02/11/20 12:40 96 H 26 H 189/75 100 02/11/20 12:30 189/75 97 02/11/20 12:20 89 14 189/75 99 02/11/20 12:10 95 H 17 189/75 99 02/11/20 12:00 97.9 F 112 H 17 177/85 100 02/11/20 11:50 131 H 14 177/85 99 02/11/20 11:40 114 H 20 177/85 100 02/11/20 11:30 109 H 28 H 177/85 99 02/11/20 11:20 82 20 177/85 98 02/11/20 11:10 79 15 178/92 99 02/11/20 11:06 66 178/92 02/11/20 11:00 68 14 156/85 99 02/11/20 10:50 69 17 156/85 99 02/11/20 10:40 70 16 156/85 100 02/11/20 10:30 82 17 156/85 100 02/11/20 10:20 70 15 156/85 100 02/11/20 10:10 83 18 156/85 100 - Physical Examination Abdomen: Positive: Soft. Negative: Pulsations/Bruits Extremities: Present: normal. Absent: edema - Labs and Meds Coagulation 02/12/20 Range/Units 03:54 PT 13.7 (12.2-14.9) Sec. INR 1.04 (0.87-1.13) CBC 02/12/20 Range/Units 03:54 WBC 7.0 (4.5-11.0) K/mm3 RBC 4.47 (3.65-5.03) M/mm3 Hgb 12.4 (11.8-15.2) gm/dl Hct 37.6 (35.5-45.6) % Plt Count 169 (140-440) K/mm3 Lymph # 1.8 (1.2-5.4) K/mm3 [place] # 0.6 (0.0-0.8) K/mm3 Eos # 0.0 (0.0-0.4) K/mm3 Baso # 0.0 (0.0-0.1) K/mm3 Comprehensive Metabolic Panel 02/12/20 Range/Units 03:54 Sodium 144 (137-145) mmol/L Potassium 3.5 L (3.6-5.0) mmol/L Chloride 106.2 (98-107) mmol/L Carbon Dioxide 19 L (22-30) mmol/L BUN 9 (9-20) mg/dL Creatinine 1.0 (0.8-1.5) mg/dL Glucose 131 H (75-100) mg/dL Calcium 9.2 (8.4-10.2) mg/dL
--- NOTE | 2020-02-12 10:24 | Progress Note ---
Subjective Date of service: 02/12/20 Interval history: discussed the situation with the risk officer I am familar with the patient await Covid 19 test before EEG is ordered most of probl;ems are chronic since patient has brain implant as experiment Objective - Vital Sign Vital Signs - 12hr 02/11/20 02/12/20 02/12/20 22:57 05:03 07:16 Temperature 98.7 F 98.6 F 98.0 F Pulse Rate 76 80 64 Respiratory 18 20 20 Rate Blood Pressure 159/95 159/90 179/89 O2 Sat by Pulse 99 100 100 Oximetry - Laboratory Findings CBC and BMP: 02/12/20 03:54 02/12/20 03:54 Abnormal Lab Findings: Abnormal Labs 02/10/20 02/10/20 02/10/20 21:51 21:51 21:51 RDW 17.4 H [place] % (Auto) D-Dimer Potassium Carbon Dioxide 19 L Glucose 165 H POC Glucose Lactic Acid Ammonia 85.0 H Lactate Dehydrogenase TSH Salicylates Acetaminophen 02/10/20 02/10/20 02/10/20 21:51 21:51 21:51 RDW [place] % (Auto) D-Dimer Potassium Carbon Dioxide Glucose POC Glucose Lactic Acid Ammonia Lactate Dehydrogenase TSH 7.220 H Salicylates < 0.3 L Acetaminophen < 5.0 L 02/10/20 02/11/20 02/11/20 21:58 01:44 01:44 RDW [place] % (Auto) D-Dimer 291.75 H Potassium Carbon Dioxide Glucose POC Glucose 183 H Lactic Acid 2.20 H* Ammonia Lactate Dehydrogenase TSH Salicylates Acetaminophen 02/11/20 02/11/20 02/11/20 01:44 07:10 08:21 RDW [place] % (Auto) D-Dimer Potassium Carbon Dioxide Glucose 162 H POC Glucose 109 H Lactic Acid Ammonia 85.0 H Lactate Dehydrogenase 228 H TSH Salicylates Acetaminophen 02/11/20 02/11/20 02/11/20 11:29 16:18 21:40 RDW [place] % (Auto) D-Dimer Potassium Carbon Dioxide Glucose POC Glucose 141 H 142 H 135 H Lactic Acid Ammonia Lactate Dehydrogenase TSH Salicylates Acetaminophen 02/12/20 02/12/20 02/12/20 03:54 03:54 03:54 RDW 17.3 H [place] % (Auto) 8.6 H D-Dimer Potassium 3.5 L Carbon Dioxide 19 L Glucose 131 H POC Glucose Lactic Acid Ammonia 66.0 H Lactate Dehydrogenase TSH Salicylates Acetaminophen 02/12/20 07:30 RDW [place] % (Auto) D-Dimer Potassium Carbon Dioxide Glucose POC Glucose 218 H Lactic Acid Ammonia Lactate Dehydrogenase TSH Salicylates Acetaminophen
[2020-02-12] MEDS: levETIRAcetam 500 MG in DEXTROSE 5% IN WATER 100 ML IV SCH (11:00)
[2020-02-12] MEDS ORDERED: APIXABAN 5 MG TAB PO SCH (13:00)
--- NOTE | 2020-02-12 13:05 | Progress Note ---
Assessment and Plan Patient alert, awake. Resting on room air. O2 saturation 100%. No complaint of chest pain, shortness of breath or cough. Patient afebrile, no leukocytosis. Patient has history of seizure disorder. No history of smoking, alcohol or drug abuse. - Patient Problems (1) Multifocal pneumonia Current Visit: Yes Status: Acute Plan to address problem: Patient treated with ceftrixone (2) Atrial flutter Current Visit: Yes Status: Acute Plan to address problem: Patient is on Apixaban. (3) Seizure Current Visit: Yes Status: Acute Plan to address problem: Management as per primary care. (4) Diabetes Current Visit: No Status: Acute Plan to address problem: Management as per primarycare (5) HTN (hypertension) Current Visit: No Status: Acute Qualifiers: Hypertension type: essential hypertension Qualified Code(s): I10 - Ess ential (primary) hypertension Plan to address problem: Management as per primary care. Subjective Date of service: 02/12/20 Interval history: Patient alert, awake. Resting on room air. O2 saturation 100%. No complaint of chest pain, shortness of breath or cough. Patient afebrile. No Leukocytosis. Patient has history of seizure disorder. No history of smoking, alcohol or drug abuse. Objective Vital Signs - 12hr 02/12/20 02/12/20 05:03 07:16 Temperature 98.6 F 98.0 F Pulse Rate 80 64 Respiratory 20 20 Rate Blood Pressure 159/90 179/89 O2 Sat by Pulse 100 100 Oximetry Constitutional: no acute distress, alert Eyes: non-icteric ENT: oropharynx moist Neck: supple, no lymphadenopathy Ascultation: Bilateral: rhonchi (Occassional rhonchi.) Cardiovascular: regular rate and rhythm Gastrointestinal: normoactive bowel sounds, soft, non-tender Integumentary: normal Extremities: no cyanosis, no edema Neurologic: normal mental status, non-focal exam, pupils equal and round Psychiatric: mood appropriate CBC and BMP: 02/12/20 03:54 02/12/20 03:54 ABG, PT/INR, D-dimer: PT/INR, D-dimer PT 13.7 Sec. (12.2-14.9) 02/12/20 03:54 INR 1.04 (0.87-1.13) 02/12/20 03:54 D-Dimer 291.75 ng/mlDDU (0-234) H 02/11/20 01:44 Abnormal lab findings: Abnormal Labs 02/10/20 02/10/20 02/10/20 21:51 21:51 21:51 RDW 17.4 H [place] % (Auto) D-Dimer Potassium Carbon Dioxide 19 L Glucose 165 H POC Glucose Lactic Acid Ammonia 85.0 H Lactate Dehydrogenase TSH Salicylates Acetaminophen 02/10/20 02/10/20 02/10/20 21:51 21:51 21:51 RDW [place] % (Auto) D-Dimer Potassium Carbon Dioxide Glucose POC Glucose Lactic Acid Ammonia Lactate Dehydrogenase TSH 7.220 H Salicylates < 0.3 L Acetaminophen < 5.0 L 02/10/20 02/11/20 02/11/20 21:58 01:44 01:44 RDW [place] % (Auto) D-Dimer 291.75 H Potassium Carbon Dioxide Glucose POC Glucose 183 H Lactic Acid 2.20 H* Ammonia Lactate Dehydrogenase TSH Salicylates Acetaminophen 02/11/20 02/11/20 02/11/20 01:44 07:10 08:21 RDW [place] % (Auto) D-Dimer Potassium Carbon Dioxide Glucose 162 H POC Glucose 109 H Lactic Acid Ammonia 85.0 H Lactate Dehydrogenase 228 H TSH Salicylates Acetaminophen 02/11/20 02/11/20 02/11/20 11:29 16:18 21:40 RDW [place] % (Auto) D-Dimer Potassium Carbon Dioxide Glucose POC Glucose 141 H 142 H 135 H Lactic Acid Ammonia Lactate Dehydrogenase TSH Salicylates Acetaminophen 02/12/20 02/12/20 02/12/20 03:54 03:54 03:54 RDW 17.3 H [place] % (Auto) 8.6 H D-Dimer Potassium 3.5 L Carbon Dioxide 19 L Glucose 131 H POC Glucose Lactic Acid Ammonia 66.0 H Lactate Dehydrogenase TSH Salicylates Acetaminophen 02/12/20 07:30 RDW [place] % (Auto) D-Dimer Potassium Carbon Dioxide Glucose POC Glucose 218 H Lactic Acid Ammonia Lactate Dehydrogenase TSH Salicylates Acetaminophen Chest x-ray: report reviewed, image reviewed CT scan - chest: report reviewed, image reviewed Additional Studies: Routine CT of the chest All CT scans at this location are performed using CT dose reduction for ALARA by means of automated exposure control. 02/10/20 COMPARISON: None available. FINDINGS: There is multifocal airspace pneumonia primarily involving the upper lungs. Cardiomegaly. The pulmonary arteries are enlarged. No significant pericardial or pleural effusio n. Shotty borderline enlarged mediastinal nodes are present. No axillary adenopathy. Review of the upper abdomen demonstrates no acute findings within the limits of the exam. Review of bone windows demonstrates compression fracture deformity involving the T4 vertebral body with anterior compression. Impression: Multifocal pneumonia primarily within the right upper lobe. Cardiomegaly. Signer Name: Amaury Carrion MD Signed: 02/11/2020 12:46 AM Workstation Name: [id number] Chest single view 01/30/30 INDICATION: Dyspnea IMPRESSION: Increased pulmonary venous congestion with some slight increased airspace density within the right upper lung. The heart is mildly enlarged. There is prominence of the main pulmonary
[2020-02-12] MEDS ORDERED: dilTIAZem CD 180 MG CAP PO SCH (14:00)
--- NOTE | 2020-02-12 15:18 | Progress Note ---
Assessment and Plan Cultures: 02/11/2020 blood culture: no growth A/P: 54-year-old male with known seizure disorder, deep brain stimulator in place, diabetes mellitus, hyperlipidemia, hypertension admitted following seizures: #?Pneumonitis: procal also normal. Feels well. No abx needed. COVID negative. #Seizure disorder Recs: abx discontinued ID will sign off. Please call with questions. Anne Boone MD, FACP [facility], [place], [facility] ([facility]) C: [phone] O: [phone] F: [phone] Subjective Date of service: 02/12/20 Interval history: No fever. Feels 100%. No complaints. Objective - Exam Narrative Exam: Physical Exam: Constitutional: Alert, cooperative. No acute distress Head, Ears, Nose: Normocephalic, atraumatic. External ears, nose normal Eyes: Conjunctivae/corneas clear. No icterus. No ptosis. Neck: Supple, no meningeal signs Cardiovascular: S1, S2 normal. Respiratory: Good air entry, clear to auscultation bilaterally GI: Soft, non-tender; bowel sounds normal. No peritoneal signs Musculoskeletal: No pedal edema, no cyanosis. Skin: No rash or abscess Hem/Lymphatic: No palpable cervical or supraclavicular nodes. No lymphangitis Psych: Mood ok. Affect normal Neurological: Awake, alert, oriented. No gross abnormality - Constitutional Vitals: Vital Signs Temp Pulse Resp BP Pulse Ox 98.0 F 64 20 179/89 100 02/12/20 07:16 02/12/20 07:16 02/12/20 07:16 02/12/20 07:16 02/12/20 07:16 Temperature -Last 24 Hours Temperature 98.0 F Temperature 98.6 F Temperature 98.7 F Temperature 99.0 F Temperature 99.1 F - Labs CBC & Chem 7: 02/12/20 03:54 02/12/20 03:54 Labs: Abnormal lab results 02/11/20 02/11/20 02/12/20 Range/Units 16:18 21:40 03:54 RDW 17.3 H (13.2-15.2) % [place] % (Auto) 8.6 H (0.0-7.3) % Potassium (3.6-5.0) mmol/L Carbon Dioxide (22-30) mmol/L Glucose (75-100) mg/dL POC Glucose 142 H 135 H (70-105) Ammonia (25-60) umol/L 02/12/20 02/12/20 02/12/20 Range/Units 03:54 03:54 07:30 RDW (13.2-15.2) % [place] % (Auto) (0.0-7.3) % Potassium 3.5 L (3.6-5.0) mmol/L Carbon Dioxide 19 L (22-30) mmol/L Glucose 131 H (75-100) mg/dL POC Glucose 218 H (70-105) Ammonia 66.0 H (25-60) umol/L
== END 2020-02-12 17:52 | disposition home or self-care (01) ==
LOC: ED 21:37 → CC1 02-11 02:22 → INTOOBSV 02-11 02:22 → 4A 02-11 15:51
PROVIDERS: ADMIT Internal Medicine Geriatric Medicine; ATTEND Internal Medicine
DX: Z03.818 Encounter for observation for suspected exposure to other biological agents ruled out (principal); G40.901 Epilepsy, unspecified, not intractable, with status epilepticus; J69.0 Pneumonitis due to inhalation of food and vomit; G93.41 Metabolic encephalopathy; I48.92 Unspecified atrial flutter; E72.20 Disorder of urea cycle metabolism, unspecified; E11.9 Type 2 diabetes mellitus without complications; I10 Essential (primary) hypertension; E78.5 Hyperlipidemia, unspecified; E03.9 Hypothyroidism, unspecified; Z96.82 Presence of neurostimulator; Z79.4 Long term (current) use of insulin; Z79.899 Other long term (current) drug therapy; Z88.6 Allergy status to analgesic agent
CPT/HCPCS: 36415; 70450; 71045; 71250; 80048; 80053; 80307; 81001; 82140; 82550; 82728; 82947; 82962; 83615; 83735; 84145; 84439; 84443; 85025; 85027; 85379; 85610; 85730; 86140; 87040; 93005; 94760; 96365; 96366; 96368; 96372; 96375; 96376; 99291; G0378; J0360; J0456; J0696; J1644; J1650; J1953; J2060; J2405; J7040; J7050; U0003; 80320; G0480; J1815

== ENCOUNTER 2020-02-24 09:44 | Emergency (ER) | payer MEDICARE ==
[2020-02-24] MEDS ORDERED: levETIRAcetam 1000 MG/NS 0.75% 1,000 MG/100 ML BAG IV ONE (09:55)
[2020-02-24] MEDS ORDERED: SODIUM CHLORIDE 0.9% 1000 ML 1,000 ML IV ONE (10:02)
--- NOTE | 2020-02-24 10:02 | Emergency Department Report ---
ED General Adult HPI - General Chief complaint: Seizure Stated complaint: SEIZURE PUI?: No Source: patient Mode of arrival: Ambulatory Limitations: No Limitations - History of Present Illness Initial comments: This is a 54-year-old man who presents very similar to his recent admission 03/02: Hospitalization Reason for admission: seizure Hospital course: 54-year-old male with known history of seizure disorder with deep brain stimulator in place, diabetes mellitus, hypertension, hyperlipidemia was brought into the emergency room today after having multiple seizures. Patient was found to be awake but postictal upon arrival and was following commands. Patient unable to give any good history as he is postictal. Family members were also not available. Patient was said to have been given intranasal benzodiazepine on the field which terminated the seizure activity. According to EMS patient may have had about 4 seizure activity prior to arrival in the emergency room. Work-up in the emergency room was significant for pneumonia on the CT scan of the chest, patient has hyper ammonemia on chemistry, CT scan of the head was unremarkable. He had what appeared to be a new onset atrial flutter on the EKG. He had some IV diltiazem with improvement. He had no further seizure activity upon arrival in the emergency room. Per patient he follows at [facility] he has not had any seizure activity recently. He was tested for COVID and was negative. Infectious disease and pulmonary saw him recommendations as noted in the documentation. Patient will be discharged on p.o. antibiotics CT was unremarkable, MRI could not be obtained due to Simulator implant. Status epileptics Seizure Aspiration Pneumonia Acute Metabolic Encephalopathy Atrial Flutter Hyperammonemia Multifocal Pneumonia Diabetes Mellitus HTN This time the patient was given 2 mg of Ativan IV and 2 mg intranasally. Paramedics state that he had one seizure at home and 1 and route to the hospital. There is a question as to his medication compliance. A glucose was found to be 200 in the field. Paramedics state the lungs sounded "junky". He did not report vomiting. No further data is available per parking meter installer. Patient is unable to provide historical information. - Related Data Home Medications Medication Instructions Recorded Confirmed Last Taken Insulin Glargine [Lantus VIAL] 18 units SUB-Q QPM 06/21/19 01/23/20 Unknown Esomeprazole Magnesium [NexIUM] 40 mg PO QDAY 01/23/20 01/23/20 Unknown Ferrous Sulfate [Feosol 325 MG tab] 1 tab PO TID 01/23/20 01/23/20 Unknown Meloxicam [Mobic] 15 mg PO DAILY PRN 01/23/20 01/23/20 Unknown Metformin HCl [metFORMIN] 1,000 mg PO BIDWM 01/23/20 02/11/20 Unknown OLANZapine [Zyprexa] 15 mg PO QHS 01/23/20 01/23/20 Unknown lisinopriL [Zestril TAB] 1 tab PO DAILY 01/23/20 02/11/20 Unknown Previous Rx's Medication Instructions Recorded Last Taken Type AtorvaSTATin [Lipitor] 40 mg PO QHS #30 tablet 07/28/19 Unknown Rx OXcarbazepine [Trileptal] 1,200 mg PO Q12H #30 tab 07/28/19 Unknown Rx Topiramate [Topamax] 200 mg PO BID #60 tablet 10/27/19 Unknown Rx lamoTRIgine [Lamictal] 200 mg PO BID #60 tablet 10/27/19 Unknown Rx levETIRAcetam [Keppra TAB] 500 mg PO BID #60 tablet 01/23/20 Unknown Rx Apixaban [Eliquis] 5 mg PO BID #60 tablet 02/12/20 Unknown Rx dilTIAZem CD [Cardizem CD] 180 mg PO QDAY #30 cap 02/12/20 Unknown Rx levETIRAcetam [Keppra TAB] 500 mg PO BID #60 tablet 02/24/20 Unknown Rx Allergies Allergy/AdvReac Type Severity Reaction Status Date / Time aspirin Allergy Unknown Verified 01/23/20 10:44 ED Review of Systems ROS: Stated complaint: SEIZURE Other details as noted in HPI Comment: Unobtainable due to pts medical conditions ED Past Medical Hx - Past Medical History Previous Medical History?: Yes Hx Hypertension: Yes Hx Diabetes: Yes Hx Arthritis: Yes Hx Seizures: Yes (epilepsy) Additional medical history: high cholesterol, encephalapathy - Surgical History Past Surgical History?: Yes 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 - Social History Smoking Status: Unknown if ever smoked Substance Use Type: None - Medications Home Medications: Home Medications Medication Instructions Recorded Confirmed Last Taken Type Insulin Glargine [Lantus VIAL] 18 units SUB-Q QPM 06/21/19 01/23/20 Unknown His tory AtorvaSTATin [Lipitor] 40 mg PO QHS #30 tablet 07/28/19 01/23/20 Unknown Rx OXcarbazepine [Trileptal] 1,200 mg PO Q12H #30 tab 07/28/19 02/11/20 Unknown Rx Topiramate [Topamax] 200 mg PO BID #60 tablet 10/27/19 02/11/20 Unknown Rx lamoTRIgine [Lamictal] 200 mg PO BID #60 tablet 10/27/19 Unknown Rx Esomeprazole Magnesium [NexIUM] 40 mg PO QDAY 01/23/20 01/23/20 Unknown History Ferrous Sulfate [Feosol 325 MG tab] 1 tab PO TID 01/23/20 01/23/20 Unknown History Meloxicam [Mobic] 15 mg PO DAILY PRN 01/23/20 01/23/20 Unknown History Metformin HCl [metFORMIN] 1,000 mg PO BIDWM 01/23/20 02/11/20 Unknown History OLANZapine [Zyprexa] 15 mg PO QHS 01/23/20 01/23/20 Unknown History levETIRAcetam [Keppra TAB] 500 mg PO BID #60 tablet 01/23/20 Unknown Rx lisinopriL [Zestril TAB] 1 tab PO DAILY 01/23/20 02/11/20 Unknown History Apixaban [Eliquis] 5 mg PO BID #60 tablet 02/12/20 Unknown Rx dilTIAZem CD [Cardizem CD] 180 mg PO QDAY #30 cap 02/12/20 Unknown Rx levETIRAcetam [Keppra TAB] 500 mg PO BID #60 tablet 02/24/20 Unknown Rx ED Physical Exam - General Limitations: Altered Mental Status (Postictal) General appearance: lethargic - Head Head exam: Present: atraumatic, normocephalic - Eye Eye exam: Present: normal appearance. Absent: scleral icterus - ENT ENT exam: Present: mucous membranes moist - Neck Neck exam: Present: normal inspection. Absent: meningismus - Respiratory Respiratory exam: Present: normal lung sounds bilaterally. Absent: respiratory distress - Cardiovascular Cardiovascular Exam: Present: regular rate, normal rhythm. Absent: systolic murmur, diastolic murmur, rubs, gallop - GI/Abdominal GI/Abdominal exam: Present: soft, normal bowel sounds. Absent: distended, tenderness - Extremities Exam Extremities exam: Present: normal inspection - Back Exam Back exam: Present: normal inspection - Neurological Exam Neurological exam: Present: altered, other (Postictal) - Psychiatric Psychiatric exam: Present: other (Postictal) - Skin Skin exam: Present: warm, dry, intact, normal color. Absent: rash ED Course Vital Signs 02/24/20 02/24/20 09:47 10:00 Temperature 98.7 F Pulse Rate 107 H 78 Respiratory 16 18 Rate Blood Pressure 153/94 Blood Pressure 168/88 [Right] O2 Sat by Pulse 97 96 Oximetry ED Medical Decision Making - Lab Data Result diagrams: 02/24/20 12:00 02/24/20 09:57 Laboratory Results - last 24 hr 02/24/20 02/24/20 02/24/20 09:57 11:33 12:00 WBC 8.8 RBC 4.65 Hgb 12.9 Hct 39.4 MCV 85 MCH 28 MCHC 33 RDW 17.0 H Plt Count 220 Lymph % (Auto) 13.4 Kinney % (Auto) 5.7 Eos % (Auto) 0.0 Baso % (Auto) 0.2 Lymph # 1.2 Kinney # 0.5 Eos # 0.0 Baso # 0.0 Seg Neutrophils % 80.7 H Seg Neutrophils # 7.1 PT INR APTT Sodium 139 Potassium 4.0 Chloride 105.5 Carbon Dioxide 17 L Anion Gap 21 BUN 7 L Creatinine 0.9 Estimated GFR > 60 BUN/Creatinine Ratio 8 Glucose 172 H Calcium 8.9 Magnesium 1.90 Total Bilirubin 0.30 Direct Bilirubin < 0.2 Indirect Bilirubin 0.1 AST 15 ALT 28 Alkaline Phosphatase 92 Ammonia 51.0 CK-MB (CK-2) 2.2 Troponin T < 0.010 NT-Pro-B Natriuret Pep 765.7 Total Protein 7.2 Albumin 4.5 Albumin/Globulin Ratio 1.7 02/24/20 12:00 WBC RBC Hgb Hct MCV MCH MCHC RDW Plt Count Lymph % (Auto) Kinney % (Auto) Eos % (Auto) Baso % (Auto) Lymph # Kinney # Eos # Baso # Seg Neutrophils % Seg Neutrophils # PT 21.2 H INR 1.89 H APTT 30.8 Sodium Potassium Chloride Carbon Dioxide Anion Gap BUN Creatinine Estimated GFR BUN/Creatinine Ratio Glucose Calcium Magnesium Total Bilirubin Direct Bilirubin Indirect Bilirubin AST ALT Alkaline Phosphatase Ammonia CK-MB (CK-2) Troponin T NT-Pro-B Natriuret Pep Total Protein Albumin Albumin/Globulin Ratio - Radiology Data Radiology results: report reviewed (No acute abnormality), image reviewed Critical care attestation.: If time is entered above; I have spent that time in minutes in the direct care of this critically ill patient, excluding procedure time. ED Disposition Clinical Impression: Recurrent seizures, Essential hypertension Disposition: DC- TO HOME OR SELFCARE Is pt being admited?: No Does the pt Need Aspirin: No Condition: Stable Instructions: Hypertension (ED), Recurrent Seizures Adult (ED) Additional Instructions: Follow-up with primary care physician. Medication as directed. Take your high blood pressure medicine that you stated you have at home. Do not drive until cleared by physician and generally seizure-free for 6 months. Prescriptions: levETIRAcetam [Keppra TAB] 500 mg PO BID #60 tablet Referrals: PRIMARY CARE, [Primary Care Provider] - 3-5 Days Time of Disposition: 14:55
--- NOTE | 2020-02-24 10:30 | XRay Report ---
CHEST 1 VIEW INDICATION: hypertension. COMPARISON: 02/10/2020 FINDINGS: SUPPORT DEVICES: None. HEART: Within normal limits. LUNGS/PLEURA: No acute air space or interstitial disease. ADDITIONAL FINDINGS: None. IMPRESSION: 1. No acute findings. Signer Name: Jonnathan Ramesh MD Signed: 02/24/2020 10:26 AM Workstation Name: [id number]
[2020-02-24 12:48] LABS: Basophils % (Auto) 0.2 % (0.0-1.8); Hematocrit 39.4 % (35.5-45.6); Hemoglobin 12.9 gm/dl (11.8-15.2); Lymphocytes # (Auto) 1.2 K/mm3 (1.2-5.4); Lymphocytes % (Auto) 13.4 % (13.4-35.0); Mean Corpuscular HGB Conc 33 % (32-34); Mean Corpuscular Volume 85 fl (84-94); Monocytes # (Auto) 0.5 K/mm3 (0.0-0.8); Monocytes % (Auto) 5.7 % (0.0-7.3); Platelet Count 220 K/mm3 (140-440); Red Blood Count 4.65 M/mm3 (3.65-5.03)
[2020-02-24 12:51] LABS: INR 1.89 (0.87-1.13)
[2020-02-24 12:52] LABS: Partial Thromboplastin Time 30.8 Sec. (24.2-36.6)
[2020-02-24 13:05] LABS: Creatine Kinase MB 2.2 ng/mL (0.0-4.0)
[2020-02-24 13:06] LABS: Alanine Aminotransferase 28 units/L (7-56); Albumin 4.5 g/dL (3.9-5); BUN/Creatinine Ratio 8; Blood Urea Nitrogen 7 mg/dL (9-20); Calcium 8.9 mg/dL (8.4-10.2); Hemolysis Index 5
[2020-02-24 13:12] LABS: Bilirubin,Direct < 0.2 mg/dL (0-0.2)
[2020-02-24 13:43] VITALS: BP 168/88
== END 2020-02-24 18:30 | disposition home or self-care (01) ==
LOC: ED 09:44
DX: G40.909 Epilepsy, unspecified, not intractable, without status epilepticus (principal); I10 Essential (primary) hypertension; R41.82 Altered mental status, unspecified; E11.9 Type 2 diabetes mellitus without complications; M19.91 Primary osteoarthritis, unspecified site; Z98.890 Other specified postprocedural states; Z79.4 Long term (current) use of insulin; Z79.899 Other long term (current) drug therapy; Z88.8 Allergy status to other drugs, medicaments and biological substances
CPT/HCPCS: 36415; 71045; 80048; 80076; 82140; 82550; 82553; 82962; 83735; 83880; 84484; 85025; 85610; 85730; 93005; 96361; 96374; 99285; J1953

== ENCOUNTER 2020-02-29 01:25 | Emergency (ER) | payer MEDICARE ==
[2020-02-29] MEDS ORDERED: levETIRAcetam 1000 MG/NS 0.75% 1,000 MG/100 ML BAG IV ONE (01:36)
--- NOTE | 2020-02-29 01:37 | Emergency Department Report ---
ED Seizure HPI - General Stated Complaint: SEIZURES Time Seen by Provider: 02/29/20 01:33 Source: patient Mode of arrival: Stretcher Limitations: Altered Mental Status - History of Present Illness Initial Comments: Patient is a 54-year-old male with a known seizure history that presents to the emergency room for seizure. Patient brought in by EMS. Patient had 2 seizures witnessed by his family. Patient seizures were back to back. Patient seizures were tonic-clonic. Patient is currently postictal. MD Complaint: seizure -: Sudden Description of Episode: loss of consciousness, tonic-clonic movement -: second(s) Witnessed:: Yes Trauma: No Seizure History: known seizure disorder, compliant with medication Place: home Possible Precipitating Event: medication - Related Data Home Medications Medication Instructions Recorded Confirmed Last Taken Insulin Glargine [Lantus VIAL] 18 units SUB-Q QPM 06/21/19 01/23/20 Unknown Esomeprazole Magnesium [NexIUM] 40 mg PO QDAY 01/23/20 01/23/20 Unknown Ferrous Sulfate [Feosol 325 MG tab] 1 tab PO TID 01/23/20 01/23/20 Unknown Meloxicam [Mobic] 15 mg PO DAILY PRN 01/23/20 01/23/20 Unknown Metformin HCl [metFORMIN] 1,000 mg PO BIDWM 01/23/20 02/11/20 Unknown OLANZapine [Zyprexa] 15 mg PO QHS 01/23/20 01/23/20 Unknown lisinopriL [Zestril TAB] 1 tab PO DAILY 01/23/20 02/11/20 Unknown Previous Rx's Medication Instructions Recorded Last Taken Type AtorvaSTATin [Lipitor] 40 mg PO QHS #30 tablet 07/28/19 Unknown Rx OXcarbazepine [Trileptal] 1,200 mg PO Q12H #30 tab 07/28/19 Unknown Rx Topiramate [Topamax] 200 mg PO BID #60 tablet 10/27/19 Unknown Rx lamoTRIgine [Lamictal] 200 mg PO BID #60 tablet 10/27/19 Unknown Rx levETIRAcetam [Keppra TAB] 500 mg PO BID #60 tablet 01/23/20 Unknown Rx Apixaban [Eliquis] 5 mg PO BID #60 tablet 02/12/20 Unknown Rx dilTIAZem CD [Cardizem CD] 180 mg PO QDAY #30 cap 02/12/20 Unknown Rx levETIRAcetam [Keppra TAB] 500 mg PO BID #60 tablet 02/24/20 Unknown Rx Allergies Allergy/AdvReac Type Severity Reaction Status Date / Time aspirin Allergy Unknown Verified 01/23/20 10:44 ED Review of Systems ROS: Stated complaint: SEIZURES Other details as noted in HPI Constitutional: denies: chills, fever Eyes: denies: eye pain, eye discharge, vision change ENT: denies: ear pain, throat pain Respiratory: denies: cough, shortness of breath, wheezing Cardiovascular: denies: chest pain, palpitations Endocrine: no symptoms reported Gastrointestinal: denies: abdominal pain, nausea, diarrhea Genitourinary: denies: urgency, dysuria Musculoskeletal: denies: back pain, joint swelling, arthralgia Skin: denies: rash, lesions Neurological: denies: headache, weakness, paresthesias Psychiatric: denies: anxiety, depression Hematological/Lymphatic: denies: easy bleeding, easy bruising ED Past Medical Hx - Past Medical History Previous Medical History?: Yes Hx Hypertension: Yes Hx Diabetes: Yes Hx Arthritis: Yes Hx Seizures: Yes (epilepsy) Additional medical history: high cholesterol, encephalapathy - Surgical History Past Surgical History?: Yes 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 - Family History Family history: no significant - Social History Smoking Status: Unknown if ever smoked Substance Use Type: None - Medications Home Medications: Home Medications Medication Instructions Recorded Confirmed Last Taken Type Insulin Glargine [Lantus VIAL] 18 units SUB-Q QPM 06/21/19 01/23/20 Unknown History AtorvaSTATin [Lipitor] 40 mg PO QHS #30 tablet 07/28/19 01/23/20 Unknown Rx OXcarbazepine [Trileptal] 1,200 mg PO Q12H #30 tab 07/28/19 02/11/20 Unknown Rx Topiramate [Topamax] 200 mg PO BID #60 tablet 10/27/19 02/11/20 Unknown Rx lamoTRIgine [Lamictal] 200 mg PO BID #60 tablet 10/27/19 Unknown Rx Esomeprazole Magnesium [NexIUM] 40 mg PO QDAY 01/23/20 01/23/20 Unknown History Ferrous Sulfate [Feosol 325 MG tab] 1 tab PO TID 01/23/20 01/23/20 Unknown History Meloxicam [Mobic] 15 mg PO DAILY PRN 01/23/20 01/23/20 Unknown History Metformin HCl [metFORMIN] 1,000 mg PO BIDWM 01/23/20 02/11/20 Unknown History OLANZapine [Zyprexa] 15 mg PO QHS 01/23/20 01/23/20 Unknown History levETIRAcetam [Keppra TAB] 500 mg PO BID #60 tablet 01/23/20 Unknown Rx lisinopriL [Zestril TAB] 1 tab PO DAILY 01/23/20 02/11/20 Unknown History Apixaban [Eliquis] 5 mg PO BID #60 tablet 02/12/20 Unknown Rx dilTIAZem CD [Cardizem CD] 180 mg PO QDAY #30 cap 02/12/20 Unknown Rx levETIRAcetam [Keppra TAB] 500 mg PO BID #60 tablet 02/24/20 Unknown Rx ED Physical Exam - General Limitations: Altered Mental Status General appearance: alert, in no apparent distress - Head Head exam: Present: atraumatic, normocephalic - Eye Eye exam: Present: normal appearance, PERRL Pupils: Present: normal accommodation - ENT ENT exam: Present: mucous membranes moist - Neck Neck exam: Present: normal inspection - Respiratory Respiratory exam: Present: normal lung sounds bilaterally. Absent: respiratory distress, wheezes, rales - Cardiovascular Cardiovascular Exam: Present: regular rate, normal rhythm. Absent: systolic murmur, diastolic murmur, rubs, gallop - GI/Abdominal GI/Abdominal exam: Present: soft, normal bowel sounds. Absent: distended, tende rness, guarding - Rectal Rectal exam: Present: deferred - Extremities Exam Extremities exam: Present: normal inspection - Back Exam Back exam: Present: normal inspection - Neurological Exam Neurological exam: Present: alert, oriented X3 - Psychiatric Psychiatric exam: Present: normal affect, normal mood - Skin Skin exam: Present: warm, dry, intact, normal color. Absent: rash ED Course Vital Signs 02/29/20 02:26 Temperature 98.5 F Pulse Rate 76 Respiratory 16 Rate Blood Pressure 141/91 [Left] O2 Sat by Pulse 100 Oximetry - Reevaluation(s) Reevaluation #1: Patient's review of system is negative. Patient answering questions appropriately. Patient alert and oriented x3. Patient states he is feeling fine. Patient denies chest pain. Patient denies shortness of breath. Patient denies headache. Patient states he has a long history of seizures. I discussed all results and clinical findings with patient. I discussed plan of care with patient. Patient agrees with plan of care. Patient is stable for discharge. Patient will be discharged home. Patient given discharge instructions. Patient voiced understanding of discharge instructions. 02/29/20 03:15 ED Medical Decision Making - Lab Data Result diagrams: 02/29/20 01:55 02/29/20 01:55 - Medical Decision Making Patient is a 54-year-old male that presents emergency room with complaints of seizure activity at home. Patient had 2 witnessed seizures by his family. Patient was brought in by EMS. Patient had labs done which were unremarkable. Patient was given a bolus of Keppra. Patient did not have any seizure activity in the ER. Patient discharged home. Patient stable for discharge. Patient will need to follow-up with his primary care and his neurologist for management of his medications. - Differential Diagnosis Seizure, noncompliance. Critical care attestation.: If time is entered above; I have spent that time in minutes in the direct care of this critically ill patient, excluding procedure time. ED Disposition Clinical Impression: Seizure, Seizure-like activity Disposition: -01 TO HOME OR SELFCARE Is pt being admited?: No Does the pt Need Aspirin: No Condition: Stable Instructions: Recurrent Seizures Adult (ED), Epilepsy (ED) Additional Instructions: Patient to follow-up with primary care in 2 to 3 days. Patient to follow-up with neurologist in 2 to 3 days. Patient to avoid driving. Patient to rest. Patient to increase water. Patient to avoid strenuous exercise or heavy lifting until cleared by neurologist. Patient to take Tylenol or ibuprofen as needed for pain. Patient to take continue all medications. Patient to take seizure medications as prescribed by outpatient physician.. Patient to return to the ER if condition worsens, changes or new symptoms arise. Referrals: ADINA GRANADOS MD [Primary Care Provider] - 2-3 Days Time of Disposition: 03:18
[2020-02-29 02:25] LABS: Hematocrit 38.1 % (35.5-45.6); Hemoglobin 12.6 gm/dl (11.8-15.2); Mean Corpuscular HGB Conc 33 % (32-34); Mean Corpuscular Volume 85 fl (84-94); Platelet Count 166 K/mm3 (140-440); Red Blood Count 4.51 M/mm3 (3.65-5.03)
[2020-02-29 02:34] LABS: Alanine Aminotransferase 28 units/L (7-56); Albumin 4.4 g/dL (3.9-5); BUN/Creatinine Ratio 11; Blood Urea Nitrogen 10 mg/dL (9-20); Calcium 9.5 mg/dL (8.4-10.2); Hemolysis Index 62
[2020-02-29 05:02] VITALS: BP 145/90
== END 2020-02-29 09:15 | disposition home or self-care (01) ==
LOC: ED 01:25
DX: G40.909 Epilepsy, unspecified, not intractable, without status epilepticus (principal); I10 Essential (primary) hypertension; E11.9 Type 2 diabetes mellitus without complications; M19.90 Unspecified osteoarthritis, unspecified site; Z79.4 Long term (current) use of insulin; Z79.899 Other long term (current) drug therapy; Z88.6 Allergy status to analgesic agent
CPT/HCPCS: 36415; 80053; 85027; 96365; 96366; 99284; J1953

== ENCOUNTER 2020-06-30 13:09 | Emergency (ER) | payer MEDICARE ==
[2020-06-30] MEDS ORDERED: BUTALB/ACETAMINOPHEN/CAFFEINE TAB PO ONE (13:48)
[2020-06-30] MEDS ORDERED: levETIRAcetam 1000 MG/NS 0.75% 1,000 MG/100 ML BAG IV ONE (13:49)
--- NOTE | 2020-06-30 13:52 | Emergency Department Report ---
HPI - General Chief Complaint: Seizure Time Seen by Provider: 06/30/20 13:36 - HPI HPI: Hall[address] The patient is a 54-year-old male present with a chief complaint of seizure. Patient was brought in after having a generalized tonic-clonic seizure. Patient states his last seizure before today occurred approximately 3 weeks ago. When asked how he is feeling now the patient states he feels okay but just has a headache which he normally does after having seizures. Patient denies any history of fever. Patient states he has been compliant with his seizure medication ED Past Medical Hx - Past Medical History Previous Medical History?: Yes Hx Hypertension: Yes Hx Diabetes: Yes Hx Arthritis: Yes Hx Seizures: Yes (epilepsy) Additional medical history: high cholesterol, encephalopathy - Surgical History Past Surgical History?: Yes 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 - Family History Family history: no significant - Social History Smoking Status: Never Smoker Substance Use Type: None (Denies illicit drug use) - Medications Home Medications: Home Medications Medication Instructions Recorded Confirmed Last Taken Type Insulin Glargine [Lantus VIAL] 18 units SUB-Q QPM 06/21/19 01/23/20 Unknown History AtorvaSTATin [Lipitor] 40 mg PO QHS #30 tablet 07/28/19 01/23/20 Unknown Rx OXcarbazepine [Trileptal] 1,200 mg PO Q12H #30 tab 07/28/19 02/11/20 Unknown Rx Topiramate [Topamax] 200 mg PO BID #60 tablet 10/27/19 02/11/20 Unknown Rx lamoTRIgine [Lamictal] 200 mg PO BID #60 tablet 10/27/19 Unknown Rx Esomeprazole Magnesium [NexIUM] 40 mg PO QDAY 01/23/20 01/23/20 Unknown History Ferrous Sulfate [Feosol 325 MG tab] 1 tab PO TID 01/23/20 01/23/20 Unknown History Meloxicam [Mobic] 15 mg PO DAILY PRN 01/23/20 01/23/20 Unknown History Metformin HCl [metFORMIN] 1,000 mg PO BIDWM 01/23/20 02/11/20 Unknown History OLANZapine [Zyprexa] 15 mg PO QHS 01/23/20 01/23/20 Unknown History levETIRAcetam [Keppra TAB] 500 mg PO BID #60 tablet 01/23/20 Unknown Rx lisinopriL [Zestril TAB] 1 tab PO DAILY 01/23/20 02/11/20 Unknown History Apixaban [Eliquis] 5 mg PO BID #60 tablet 02/12/20 Unknown Rx dilTIAZem CD [Cardizem CD] 180 mg PO QDAY #30 cap 02/12/20 Unknown Rx levETIRAcetam [Keppra TAB] 500 mg PO BID #60 tablet 02/24/20 Unknown Rx Lacosamide [Vimpat] 100 mg PO Q12HR 30 Days #60 tablet 03/02/20 Unknown Rx Topiramate [Topamax] 200 mg PO BID 30 Days #60 tablet 03/02/20 Unknown Rx lamoTRIgine [Lamictal] 200 mg PO BID 30 Days #60 tablet 03/02/20 Unknown Rx levETIRAcetam [Keppra TAB] 500 mg PO BID 30 Days #60 tablet 03/02/20 Unknown Rx Butalb/Acetamin/Caff 50-325-40 1 - 2 tab PO Q8HR PRN #10 tablet 06/30/20 Unknown Rx [Fioricet 50-325-40] ED Review of Systems ROS: Stated complaint: SEIZURE Other details as noted in HPI Constitutional: denies: fever Respiratory: no symptoms reported Endocrine: no symptoms reported Neurological: headache, other (Seizure) Physical Exam - Physical Exam Vital Signs: Vital Signs 06/30/20 06/30/20 13:15 13:47 Temperature 98.7 F Pulse Rate 88 Respiratory 16 16 Rate Blood Pressure 135/92 O2 Sat by Pulse 99 99 Oximetry Physical Exam: GENERAL: The patient is well-developed well-nourished male lying on stretcher not appearing to be in acute distress. [] HEENT: Normocephalic. Atraumatic. Extraocular motions are intact. Patient has moist mucous membranes. NECK: Supple. No meningitic signs are noted. Trachea midline CHEST/LUNGS: Clear to auscultation. There is no respiratory distress noted. HEART/CARDIOVASCULAR: Regular. There is no tachycardia. There is no gallop rub or murmur. ABDOMEN: Abdomen is soft, nontender. Patient has normal bowel sounds. There is no abdominal distention. SKIN: There is no rash. There is no edema. There is no diaphoresis. NEURO: The patient is awake, alert, and oriented. The patient is cooperative. The patient has no focal neurologic deficits. The patient has normal speech. Cranial nerves II through XII grossly intact, no drift MUSCULOSKELETAL: There is no evidence of acute injury. ED Course Vital Signs 06/30/20 06/30/20 13:15 13:47 Temperature 98.7 F Pulse Rate 88 Respiratory 16 16 Rate Blood Pressure 135/92 O2 Sat by Pulse 99 99 Oximetry ED Medical Decision Making - Lab Data Result diagrams: 06/30/20 14:30 06/30/20 14:30 Laboratory Tests 06/30/20 06/30/20 14:30 14:30 WBC 7.1 RBC 4.33 Hgb 12.4 Hct 37.2 MCV 86 MCH 29 MCHC 33 RDW 14.6 Plt Count 220 Lymph % (Auto) 17.7 [place] % (Auto) 6.5 Eos % (Auto) 0.0 Baso % (Auto) 0.7 Lymph # (Auto) 1.3 [place] # (Auto) 0.5 Eos # (Auto) 0.0 Baso # (Auto) 0.0 Seg Neutrophils % 75.1 H Seg Neutrophils # 5.3 Sodium 138 Potassium 4.3 Chloride 102.2 Carbon Dioxide 20 L Anion Gap 20 BUN 6 L Creatinine 0.8 Estimated GFR > 60 BUN/Creatinine Ratio 8 Glucose 252 H Calcium 9.2 Magnesium 2.10 - Differential Diagnosis Seizure Critical care attestation.: If time is entered above; I have spent that time in minutes in the direct care of this critically ill patient, excluding procedure time. ED Disposition Clinical Impression: Seizure Disposition: DC-01 TO HOME OR SELFCARE Is pt being admited?: No Does the pt Need Aspirin: No Condition: Stable Instructions: Epilepsy (ED) Additional Instructions: Return to the emergency department should you develop worsening symptoms, inability to tolerate food or liquids, high fever or any other concerns Prescriptions: Butalb/Acetamin/Caff 50-325-40 [Fioricet 50-325-40] 1 - 2 tab PO Q8HR PRN #10 tablet PRN Reason: Headache Referrals: AMY MENDIOLA MD [Staff Physician] - 3-5 Days (Dr. Mendiola is a neurologist. Please follow-up with him for further evaluation) Time of Disposition: 15:30
[2020-06-30 14:54] LABS: Basophils % (Auto) 0.7 % (0.0-1.8); Hematocrit 37.2 % (35.5-45.6); Hemoglobin 12.4 gm/dl (11.8-15.2); Lymphocytes # (Auto) 1.3 K/mm3 (1.2-5.4); Lymphocytes % (Auto) 17.7 % (13.4-35.0); Mean Corpuscular HGB Conc 33 % (32-34); Mean Corpuscular Volume 86 fl (84-94); Monocytes # (Auto) 0.5 K/mm3 (0.0-0.8); Monocytes % (Auto) 6.5 % (0.0-7.3); Platelet Count 220 K/mm3 (140-440); Red Blood Count 4.33 M/mm3 (3.65-5.03); Red Cell Distribution Width 14.6 % (13.2-15.2)
[2020-06-30 15:12] LABS: BUN/Creatinine Ratio 8; Blood Urea Nitrogen 6 mg/dL (9-20); Calcium 9.2 mg/dL (8.4-10.2); Hemolysis Index 11
[2020-06-30] MEDS ORDERED: levETIRAcetam 500 MG TAB PO ONE ×2 (15:55)
[2020-06-30 17:14] VITALS: BP 130/74
== END 2020-06-30 17:14 | disposition home or self-care (01) ==
LOC: ED 13:09
DX: R56.9 Unspecified convulsions (principal); I10 Essential (primary) hypertension; E11.9 Type 2 diabetes mellitus without complications; M19.91 Primary osteoarthritis, unspecified site; Z98.890 Other specified postprocedural states; Z79.4 Long term (current) use of insulin; Z79.899 Other long term (current) drug therapy; Z88.6 Allergy status to analgesic agent
CPT/HCPCS: 36415; 80048; 83735; 85025

== ENCOUNTER 2020-07-31 13:55 | Emergency (ER) | payer MEDICARE ==
[2020-07-31 15:28] LABS: Hematocrit 40.6 % (35.5-45.6); Hemoglobin 13.3 gm/dl (11.8-15.2); Mean Corpuscular HGB Conc 33 % (32-34); Mean Corpuscular Volume 84 fl (84-94); Platelet Count 204 K/mm3 (140-440); Red Blood Count 4.82 M/mm3 (3.65-5.03)
[2020-07-31] MEDS ORDERED: levETIRAcetam 1000 MG/NS 0.75% 1,000 MG/100 ML BAG IV ONE (15:30)
[2020-07-31 15:35] LABS: BUN/Creatinine Ratio 11; Blood Urea Nitrogen 11 mg/dL (9-20); Calcium 9.5 mg/dL (8.4-10.2); Hemolysis Index 9
--- NOTE | 2020-07-31 15:35 | Emergency Department Report ---
HPI - General Chief Complaint: Seizure Time Seen by Provider: 07/31/20 14:38 - HPI HPI: This is a 54-year-old male who presents to the emergency department with a complaint of a witnessed seizure prior to arrival. At the time of my examination the patient is awake, alert, oriented, AAO x3. 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 He follows up with a primary care physician and neurologist through [facility]. He also has a past medical history of arthritis, diabetes, hypertension, high cholesterol. Patient says that he currently feels "great." He believes it has been over a month since his last seizure-like activity. ED Past Medical Hx - Past Medical History Previous Medical History?: Yes Hx Hypertension: Yes Hx Diabetes: Yes Hx Arthritis: Yes Hx Seizures: Yes (epilepsy) Additional medical history: high cholesterol, encephalopathy - Surgical History Past Surgical History?: Yes 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 - Social History Smoking Status: Never Smoker Substance Use Type: None - Medications Home Medications: Home Medications Medication Instructions Recorded Confirmed Last Taken Type Insulin Glargine [Lantus VIAL] 18 units SUB-Q QPM 06/21/19 01/23/20 Unknown History AtorvaSTATin [Lipitor] 40 mg PO QHS #30 tablet 07/28/19 01/23/20 Unknown Rx OXcarbazepine [Trileptal] 1,200 mg PO Q12H #30 tab 07/28/19 02/11/20 Unknown Rx Topiramate [Topamax] 200 mg PO BID #60 tablet 10/27/19 02/11/20 Unknown Rx lamoTRIgine [Lamictal] 200 mg PO BID #60 tablet 10/27/19 Unknown Rx Esomeprazole Magnesium [NexIUM] 40 mg PO QDAY 01/23/20 01/23/20 Unknown History Ferrous Sulfate [Feosol 325 MG tab] 1 tab PO TID 01/23/20 01/23/20 Unknown History Meloxicam [Mobic] 15 mg PO DAILY PRN 01/23/20 01/23/20 Unknown History Metformin HCl [metFORMIN] 1,000 mg PO BIDWM 01/23/20 02/11/20 Unknown History OLANZapine [Zyprexa] 15 mg PO QHS 01/23/20 01/23/20 Unknown History levETIRAcetam [Keppra TAB] 500 mg PO BID #60 tablet 01/23/20 Unknown Rx lisinopriL [Zestril TAB] 1 tab PO DAILY 01/23/20 02/11/20 Unknown History Apixaban [Eliquis] 5 mg PO BID #60 tablet 02/12/20 Unknown Rx dilTIAZem CD [Cardizem CD] 180 mg PO QDAY #30 cap 02/12/20 Unknown Rx levETIRAcetam [Keppra TAB] 500 mg PO BID #60 tablet 02/24/20 Unknown Rx Lacosamide [Vimpat] 100 mg PO Q12HR 30 Days #60 tablet 03/02/20 Unknown Rx Topiramate [Topamax] 200 mg PO BID 30 Days #60 tablet 03/02/20 Unknown Rx lamoTRIgine [Lamictal] 200 mg PO BID 30 Days #60 tablet 03/02/20 Unknown Rx levETIRAcetam [Keppra TAB] 500 mg PO BID 30 Days #60 tablet 03/02/20 Unknown Rx Butalb/Acetamin/Caff 50-325-40 1 - 2 tab PO Q8HR PRN #10 tablet 06/30/20 Unknown Rx [Fioricet 50-325-40] ED Review of Systems ROS: Stated complaint: SEIZURE Other details as noted in HPI Comment: All other systems reviewed and negative Constitutional: denies: chills, fever Eyes: denies: eye pain, vision change ENT: denies: ear pain, throat pain Respiratory: denies: cough, shortness of breath Cardiovascular: denies: chest pain, palpitations Gastrointestinal: denies: abdominal pain, vomiting Genitourinary: denies: dysuria, discharge Musculoskeletal: denies: back pain, arthralgia Skin: denies: rash, lesions Neurological: other (Seizure). denies: headache Physical Exam - Physical Exam Vital Signs: Vital Signs 07/31/20 13:55 Temperature 98.4 F Pulse Rate 82 Respiratory 12 Rate Blood Pressure 139/89 O2 Sat by Pulse 97 Oximetry Physical Exam: GENERAL: The patient is well-developed well-nourished. HENT: Normocephalic. Atraumatic. Patient has moist mucous membranes. EYES: Extraocular motions are intact. No nystagmus. NECK: Supple. Trachea is midline. CHEST/LUNGS: Clear to auscultation. There is no respiratory distress noted. HEART/CARDIOVASCULAR: Regular. There is no tachycardia. There is no murmur. ABDOMEN: Abdomen is soft, nontender. Patient has normal bowel sounds. SKIN: Skin is warm and dry. NEURO: The patient is awake, alert, and oriented. The patient is cooperative. The patient has no focal neurologic deficits. Normal speech. Cranial nerves II through XII grossly intact. No facial asymmetry. No pronator drift. MUSCULOSKELETAL: There is no tenderness or deformity. ED Course Vital Signs 07/31/20 13:55 Temperature 98.4 F Pulse Rate 82 Respiratory 12 Rate Blood Pressure 139/89 O2 Sat by Pulse 97 Oximetry ED Medical Decision Making - Lab Data Result diagrams: 07/31/20 14:58 07/31/20 14:58 - Medical Decision Making This patient presents with a complaint of a witnessed seizure prior to presentation. The patient does have a seizure disorder and is allegedly compliant with his medications. Patient has been awake and oriented since arrival to the emergency department and has no complaints. Labs have been mostly unremarkable except for some mild hyperglycemia but the patient does not appear in diabetic ketoacidosis. The patient is on 4 different antiepileptic medications but was given a loading dose of Keppra here. He was reevaluated multiple times over more than 3 hours and there has been no return of any seizure-like activity. His vital signs have been reassuring throughout his ED course including being afebrile. He has good outpatient follow-up with primary care and neurology through [facility]. He will return to the emergency department with any worsening of his symptoms or with any acute distress. Critical Care Time: No Critical care attestation.: If time is entered above; I have spent that time in minutes in the direct care of this critically ill patient, excluding procedure time. ED Disposition Clinical Impression: Seizure Disposition: DC-01 TO HOME OR SELFCARE Is pt being admited?: No Condition: Stable Instructions: Seizure, Adult Additional Instructions: Please follow-up with your primary care physician and neurologist in the next few days. Return to the emergency department with any worsening of your symptoms, new or concerning symptoms not addressed during this current emergency department visit, or with any acute distress. Referrals: PRIMARY MD SYMONE [Primary Care Provider] - 2-3 Days Neurologist, Your [Other] - 2-3 Days Time of Disposition: 16:55
[2020-07-31 18:13] VITALS: BP 145/104
== END 2020-07-31 18:00 | disposition home or self-care (01) ==
LOC: ED 13:55
DX: G40.909 Epilepsy, unspecified, not intractable, without status epilepticus (principal); I10 Essential (primary) hypertension; E11.9 Type 2 diabetes mellitus without complications; M19.90 Unspecified osteoarthritis, unspecified site; Z98.890 Other specified postprocedural states; Z79.4 Long term (current) use of insulin; Z79.899 Other long term (current) drug therapy; Z88.6 Allergy status to analgesic agent
CPT/HCPCS: 36415; 80048; 85027; 96365; 99284; J1953